=== PATIENT | female | born 1950 | race Caucasian/White ===

== ENCOUNTER → 2017-02-13 | Outpatient (CLI) | payer MEDICARE, MEDICAID ==
[~2017-02-13] MED LIST: ATOR1TAB18 PO; BUME1TAB PO; BUME1TAB26 PO; CALC0.5C6 PO; CALC500T35 PO; CARV6.252 PO; ESSE250T PO; FERR1TAB36 PO; FERR325T2 PO; FISH100020 PO; GLYB2.5T3 PO; GLYB5TAB3 PO; IPRAAER INH; ISOS20TA PO; ISOS30TA3 PO; LANTUS2P SQ; LEVO125T4 PO; LEVO88TA2 PO; LISI-519 PO; NOVOINJ3 SQ; OMEP20TA PO; POTA99TA4 PO; PRAS10TA PO; RANI150C PO; RANI1TAB5 PO; SPIR25TA PO; TUMS500C PO; VENTAER INH; VITA100018 PO
[2017-02-13 07:34] LABS: MEAN CELL VOLUME 90.1 FL (80.0-100.0); MEAN CORPUSCULAR HEMOGLOBIN 30.4 PG (27.0-34.0); MEAN CORPUSCULAR HGB CONC 33.7 % (32.0-36.0); PLATELET COUNT 142 TH/MM3 (150-450); RED BLOOD COUNT 4.33 MIL/MM3 (4.00-5.30); RED CELL DISTRIBUTION WIDTH 14.6 % (11.6-17.2); REVIEW FLAG FINAL; WHITE BLOOD COUNT 7.9 TH/MM3 (4.0-11.0)
[2017-02-13 07:55] LABS: BICARBONATE 27.3 MEQ/L (21.0-32.0); POTASSIUM 3.9 MEQ/L (3.5-5.1)
[2017-02-13 08:00] LABS: FREE T3 1.87 PG/ML (2.18-3.98); FREE T4 1.49 NG/DL (0.76-1.46)
[2017-02-13 15:53] LABS: HEMOGLOBIN A1a 1.1 %; HEMOGLOBIN A1b 1.4 %; HEMOGLOBIN Ao 71.2 %; HEMOGLOBIN F 2.2 %; HEMOGLOBIN LA1C 4.6 %; HEMOGLOBIN P3 6.3 %
== END ==
LOC: CLAB 07:05
PROVIDERS: ATTEND Internal Medicine Nephrology
DX: E03.9 Hypothyroidism, unspecified (principal); N18.3 Chronic kidney disease, stage 3 (moderate); E11.65 Type 2 diabetes mellitus with hyperglycemia; E11.22 Type 2 diabetes mellitus with diabetic chronic kidney disease; E83.51 Hypocalcemia
CPT/HCPCS: 36415; 80069; 83036; 84439; 84443; 84481; 85027

== ENCOUNTER 2017-05-10 14:08 | Inpatient (IN) | payer MEDICARE, MEDICAID ==
[~2017-05-10] VITALS: Ht 160 cm; Wt 65.0 kg
[~2017-05-10 14:08] MED LIST changes: -BUME1TAB PO; -CALC500T35 PO; -ESSE250T PO; -FERR325T2 PO; -FISH100020 PO; -GLYB5TAB3 PO; -IPRAAER INH; -ISOS30TA3 PO; -LANTUS2P SQ; -LEVO88TA2 PO; -NOVOINJ3 SQ; -POTA99TA4 PO; -RANI150C PO; -TUMS500C PO; -VITA100018 PO
[2017-05-10 14:10] VITALS: BP 153/67; PULSE 60; RESP 16; TEMP 98.4; O2SAT 98
[2017-05-10] MEDS ORDERED: SODIUM CHLOR 0.9% 1000 ML INJ 1,000 ML IV ONE (15:08)
[2017-05-10] MEDS ORDERED: ONDANSETRON HCL 4 MG/2 ML VIAL IVP ONE (15:15)
[2017-05-10] MEDS ORDERED: MECLIZINE HCL 25 MG TAB PO ONE (15:15)
[2017-05-10] MEDS ORDERED: SODIUM CHLORIDE 0.9% FLUSH 10 ML FLUSH IV FLUSH PRN ×2 (15:15→18:45)
--- NOTE | 2017-05-10 15:26 | PD ---
HPI Chief Complaint: Diabetic Time Seen by Provider: 15:08 Travel History International Travel<30 days: No Contact w/Intl Traveler<30days: No Traveled to known affect area: No History of Present Illness HPI This is a 67-year-old female with history of type 2 diabetes presents for evaluation of abdominal pain, headache, nausea and vomiting, vertigo. For the past 2 weeks she's been experiencing pain in the lower quadrants of her belly, left greater than right, which has been constant, aching sensation. She has also had an occipital headache as well as a vertigo sensation whenever she moves quickly or walks. In addition she has had nausea, proximal 2 episodes of emesis on a daily basis. She was seen by her primary care physician, Dr. Martinez , for evaluation of this 2 days ago. Symptoms have persisted which prompted evaluation here. She denies diarrhea, chest pain or shortness of breath, fevers or chills, flank pain, dysuria. Denies any recent dietary changes, recent medication changes. Her primary concern was the possibility of DKAshe looked up the symptoms on the Internet and she feels they are consistent. No history of DKA. Her blood sugar has been running between 150 and 160 at home. She has no other complaints. PFSH Past Medical History Hx Anticoagulant Therapy: Yes Arthritis: Yes Asthma: No Autoimmune Disease: No Blood Disorders: No Anxiety: No Depression: No Heart Rhythm Problems: Yes Cancer: No Cardiac Catheterization: Yes Cardiovascular Problems: Yes (afib, pacemaker) High Cholesterol: Yes Chemotherapy: No Chest Pain: Yes Congestive Heart Failure: Yes COPD: Yes Cerebrovascular Accident: No Coronary Artery Disease: Yes Diabetes: Yes Patient Takes Glucophage: No Diminished Hearing: Yes ([place]) Endocrine: Yes Gastrointestinal Disorders: Yes (GERD) GERD: Yes Genitourinary: No Hiatal Hernia: Yes Hypertension: Yes Immune Disorder: No Implanted Vascular Access Dvce: Yes (pacer/defib) Kidney Stones: Yes Musculoskeletal: Yes Neurologic: No Psychiatric: No Reproductive: No Respiratory: No Migraines: No Myocardial Infarction: Yes Radiation Therapy: No Renal Failure: No Seizures: No Sickle Cell Disease: No Sleep Apnea: No Thyroid Disease: Yes Ulcer: No Menopausal: Yes Tubal Ligation: Yes Past Surgical History Abdominal Surgery: No AICD: Yes (placed 06/06/15) Arteriovenous Shunt: No Cardiac Surgery: Yes Coronary Stent: Yes (04/2014) Ear Surgery: No Endocrine Surgery: No Eye Surgery: No Genitourinary Surgery: No Gynecologic Surgery: No Hysterectomy: No Insulin Pump: No Joint Replacement: No Oral Surgery: No Pacemaker: Yes (06/04/15 [facility] [id number]) Thoracic Surgery: No Other Surgery: Yes (thyroidectomy ) Social History Alcohol Use: No Tobacco Use: Yes Substance Use: No Allergies-Medications (Allergen,Severity, Reaction): Coded Allergies: Aspirin (Verified Allergy, Severe, EDEMA, NAUSEA, 11/07/16) Demerol (Verified Allergy, Severe, HEART STOPPED, 11/07/16) Levaquin (Verified Allergy, Severe, PAIN, 11/07/16) Neurontin (Verified Allergy, Severe, THROAT CLOSES, 11/07/16) Penicillin (Verified Allergy, Severe, Swelling, 11/07/16) Uncoded Allergies: PACEMAKER (Adverse Reaction, Severe, NON CONDITIONAL PACEMAKER, 11/08/16) NON BIOTRONIK/MEDTRONIC VSV 11/08/16 Reported Meds & Prescriptions Reported Meds & Active Scripts Active Reported Potassium 99 Mg Tablet 99 Mg PO DAILY Vitamin D3 (Cholecalciferol) 1,000 Unit Tab 1,000 Units PO DAILY Fish Oil 1000 mg ([place]-3 Fatty Acids) 1 Cap Cap 1,000 Mg PO TID Magnesium 250 Mg Tab 500 Mg PO DAILY Tums (Calcium Carbonate (Antacid)) 500 Mg Chew 500 Mg PO PRN Calcium (Oyster Shell) 500 Mg Tab 500 Mg PO DAILY Combivent Respimat Inh (Ipratropium-Albuterol Inh) 20-100 [place]/Act Aero 1 Puff INH 1-2 TIMES DAILY Lantus Inj (Insulin Glargine) 1,000 Unit/10 Ml Vial 10 Units SQ HS Novolog Flexpen Inj (Insulin Aspart) 300 Unit/3 Ml Pen 3 Units SQ TIDAC Ferrous Sulfate DR (Ferrous Sulfate) 325 Mg Tabdr 325 Mg PO DAILY Levothyroxine (Levothyroxine Sodium) 88 Mcg Tab 88 Mcg PO DAILY Isosorbide Mononitrate ER (Isosorbide Mononitrate) 30 Mg Dina 30 Mg PO DAILY Ranitidine (Ranitidine HCl) 150 Mg Cap 150 Mg PO BID Glyburide 5 Mg Tab 5 Mg PO BID Take with meals at the same time each day Bumetanide 1 Mg Tab 1 Mg PO BID Omeprazole 20 Mg Tab 20 Mg PO HS Lisinopril 5 Mg Tab 5 Mg PO DAILY Effient (Prasugrel) 10 Mg Tab 10 Mg PO DAILY Carvedilol 6.25 Mg Tab 6.25 Mg PO BID Calcitriol 0.5 Mcg Cap 0.5 Mcg PO DAILY Atorvastatin (Atorvastatin Calcium) 80 Mg Tab 80 Mg PO HS Ventolin Hfa 18 GM Inh (Albuterol Sulfate) 90 Mcg/Act Aer 2 Puff INH TID PRN Review of Systems Except as stated in HPI: all other systems reviewed are Neg Physical Exam Narrative GENERAL: This is a well-developed well-nourished female who is in no acute distress SKIN: Warm and dry. HEAD: Atraumatic. Normocephalic. EYES: Pupils equal and round reactive to light extraocular muscles are intact no nystagmus. No scleral icterus. No injection or drainage. ENT: No nasal bleeding or discharge. Mucous membranes pink and moist. NECK: Trachea midline. No JVD. CARDIOVASCULAR: Regular rate and rhythm. No murmur appreciated. RESPIRATORY: No accessory muscle use. Clear to auscultation. Breath sounds equal bilaterally. GASTROINTESTINAL: Abdomen soft, mild left lower quadrant tenderness without guarding. No CVA tenderness. MUSCULOSKELETAL: No obvious deformities. No edema. NEUROLOGICAL: Awake and alert. No obvious cranial nerve deficits. Motor grossly within normal limits. Normal speech. PSYCHIATRIC: Appropriate mood and affect; insight and judgment normal. Data Data Last Documented VS Vital Signs Date Time Temp Pulse Resp B/P Pulse Ox O2 Delivery O2 Flow Rate FiO2 05/10/17 16:23 78 20 156/77 05/10/17 16:00 97 05/10/17 14:10 98.4 Room Air Orders Complete Blood Count With Diff (05/10/17 15:08) Comprehensive Metabolic Panel (05/10/17 15:08) Lipase (05/10/17 15:08) Urinalysis - C+S If Indicated (05/10/17 15:08) Iv Access Insert/Monitor (05/10/17 15:08) Ecg Monitoring (05/10/17 15:08) Oximetry (05/10/17 15:08) Ondansetron Inj (Zofran Inj) (05/10/17 15:15) Sodium Chloride 0.9% Flush (Ns Flush) (05/10/17 15:15) Electrocardiogram (05/10/17 15:08) Magnesium (Mg) (05/10/17 15:08) Ckmb (Isoenzyme) Profile (05/10/17 15:08) Troponin I (05/10/17 15:08) Act Partial Throm Time (Ptt) (05/10/17 15:08) Prothrombin Time / Inr (Pt) (05/10/17 15:08) Ct Brain W/O Iv Contrast(Rout) (05/10/17 15:08) Meclizine (Antivert) (05/10/17 15:15) Sodium Chlor 0.9% 1000 Ml Inj (Ns 1000 M (05/10/17 15:08) Beta Hydroxybutyrate (Acetone) (05/10/17 15:20) Sodium Chlor 0.9% 1000 Ml Inj (Ns 1000 M (05/10/17 16:26) Ct Abd/Pel W/O Iv Contrast (05/10/17 15:08) Admit Order (Ed Use Only) (05/10/17 17:49) Labs Laboratory Tests Test 05/10/17 15:20 White Blood Count 10.7 TH/MM3 Red Blood Count 4.04 MIL/MM3 Hemoglobin 12.3 GM/DL Hematocrit 35.5 % Mean Corpuscular Volume 88.0 FL Mean Corpuscular Hemoglobin 30.5 PG Mean Corpuscular Hemoglobin 34.6 % Concent Red Cell Distribution Width 13.5 % Platelet Count 192 TH/MM3 Mean Platelet Volume 10.9 FL Neutrophils (%) (Auto) 66.9 % Lymphocytes (%) (Auto) 22.1 % Monocytes (%) (Auto) 9.2 % Eosinophils (%) (Auto) 1.4 % Basophils (%) (Auto) 0.4 % Neutrophils # (Auto) 7.2 TH/MM3 Lymphocytes # (Auto) 2.4 TH/MM3 Monocytes # (Auto) 1.0 TH/MM3 Eosinophils # (Auto) 0.1 TH/MM3 Basophils # (Auto) 0.0 TH/MM3 CBC Comment DIFF FINAL Differential Comment Prothrombin Time 10.0 SEC Prothromb Time International 0.9 RATIO Ratio Activated Partial 30.6 SEC Thromboplast Time Sodium Level 141 MEQ/L Potassium Level 3.8 MEQ/L Chloride Level 101 MEQ/L Carbon Dioxide Level 33.9 MEQ/L Anion Gap 6 MEQ/L Blood Urea Nitrogen 31 MG/DL Creatinine 2.66 MG/DL Estimat Glomerular Filtration 18 ML/MIN Rate Random Glucose 97 MG/DL Calcium Level 13.6 MG/DL Protein Corrected Calcium 13.2 MG/DL Magnesium Level 1.3 MG/DL Total Bilirubin 0.4 MG/DL Aspartate Amino Transf 17 U/L (AST/SGOT) Alanine Aminotransferase 22 U/L (ALT/SGPT) Alkaline Phosphatase 91 U/L Total Creatine Kinase 77 U/L Troponin I LESS THAN 0.02 NG/ML Total Protein 7.7 GM/DL Albumin 3.5 GM/DL Lipase 146 U/L B-Hydroxybutyrate 0.08 MMOL/L MDM Medical Decision Making Medical Screen Exam Complete: Yes Emergency Medical Condition: Yes Medical Record Reviewed: Yes Differential Diagnosis Intracranial hemorrhage, diverticulitis, appendicitis, UTI, electrolyte disturbance, benign positional vertigo, intracranial mass Narrative Course 67-year-old female with 2 weeks of abdominal pain, headache, vertigo sensation, nausea and vomiting. On examination she has mild left lower quadrant tenderness to palpation. Examination is otherwise unremarkable, no neurologic deficits. Plan is for basic lab work, CT of the abdomen and pelvis, CT of the brain, 12-lead EKG, ECG monitoring. She was given IV fluids, oral meclizine, IV Zofran. She will be monitored closely. The patient's lab work is been reviewed and she has an acute kidney injury, with hypercalcemia. She has a history of thyroidectomy/parathyroidectomy with resultant issues with hypocalcemia. She takes calcium supplements on a regular basis, did not take one today, denies any recent change in this arena. The patient will be given 2 L of IV fluids and she will be admitted for further management of her symptomatic hypercalcemia, acute kidney injury. Discussed with Dr. Traylor who is agreeable with admission. Procedures EKG Prior to Arrival: Yes Diagnosis Primary Impression: Hypercalcemia Additional Impression: Acute kidney injury Admitting Information Admitting Physician Requests: Admit Delbert Doshi May 10, 2017 15:26
[2017-05-10 16:00] VITALS: O2SAT 97
[2017-05-10 16:07] LABS: APTT (PATIENT) 30.6 SEC (24.3-30.1); INTERNATIONAL NORMALIZED RATIO 0.9 RATIO
[2017-05-10 16:08] LABS: AUTOMATED NEUTROPHIL # 7.2 TH/MM3 (1.8-7.7); BASOPHIL % 0.4 % (0.0-2.0); EOSINOPHIL # 0.1 TH/MM3 (0-0.4); EOSINOPHIL % 1.4 % (0.0-4.0); HEMATOCRIT 35.5 % (35.0-46.0); HEMO FLAGS DIFF FINAL; LYMPH % 22.1 % (9.0-44.0); LYMPHOCYTE # 2.4 TH/MM3 (1.0-4.8); MEAN CORPUSCULAR HEMOGLOBIN 30.5 PG (27.0-34.0); MEAN CORPUSCULAR HGB CONC 34.6 % (32.0-36.0); MONO % 9.2 % (0.0-8.0); NEUT % 66.9 % (16.0-70.0); PLATELET COUNT 192 TH/MM3 (150-450); RED BLOOD COUNT 4.04 MIL/MM3 (4.00-5.30); RED CELL DISTRIBUTION WIDTH 13.5 % (11.6-17.2); WHITE BLOOD COUNT 10.7 TH/MM3 (4.0-11.0)
[2017-05-10] MEDS ORDERED: IPRAAER INH (16:10)
[2017-05-10] MEDS ORDERED: NOVOINJ3 SQ (16:10)
[2017-05-10] MEDS ORDERED: GLYB5TAB3 PO (16:10)
[2017-05-10] MEDS ORDERED: ISOS30TA3 PO (16:10)
[2017-05-10] MEDS ORDERED: RANI150C PO (16:10)
[2017-05-10] MEDS ORDERED: ESSE250T PO (16:10)
[2017-05-10] MEDS ORDERED: BUME1TAB PO (16:10)
[2017-05-10] MEDS ORDERED: FERR325T2 PO (16:10)
[2017-05-10] MEDS ORDERED: VITA100018 PO (16:10)
[2017-05-10] MEDS ORDERED: FISH100020 PO (16:10)
[2017-05-10] MEDS ORDERED: LEVO88TA2 PO (16:10)
[2017-05-10] MEDS ORDERED: TUMS500C PO (16:10)
[2017-05-10] MEDS ORDERED: LANTUS2P SQ (16:10)
[2017-05-10] MEDS ORDERED: CALC500T35 PO (16:10)
[2017-05-10] MEDS ORDERED: POTA99TA4 PO (16:10)
[2017-05-10 16:19] LABS: ALKALINE PHOSPHATASE 91 U/L (45-117); ALT (GPT) 22 U/L (10-53); ANION GAP 6 MEQ/L (5-15); AST (GOT) 17 U/L (15-37); BETA-HYDROXYBUTYRATE 0.08 MMOL/L (0.00-0.39); BICARBONATE 33.9 MEQ/L (21.0-32.0); BLOOD UREA NITROGEN 31 MG/DL (7-18); CHLORIDE 101 MEQ/L (98-107); GLOMERULAR FILTRATION RATE 18 ML/MIN (>89); MAGNESIUM 1.3 MG/DL (1.5-2.5); POTASSIUM 3.8 MEQ/L (3.5-5.1); SODIUM (NA) 141 MEQ/L (136-145); TOTAL BILIRUBIN ADULT 0.4 MG/DL (0.2-1.0)
[2017-05-10 16:21] LABS: CREATINE KINASE 77 U/L (26-192)
[2017-05-10 16:23] VITALS: BP 156/77; PULSE 78; RESP 20
[2017-05-10 16:25] LABS: CALCIUM-PROTEIN CORRECTED 13.2 MG/DL (8.5-10.1)
[2017-05-10] MEDS ORDERED: SODIUM CHLOR 0.9% 1000 ML INJ 1,000 ML IV SCH (16:26)
--- NOTE | 2017-05-10 17:17 | RADRPT ---
EXAM DATE/TIME: 05/10/2017 16:58 [facility] COMPARISON: CT BRAIN W/O CONTRAST, November 07, 2016, 12:27. INDICATIONS : Headaches . RADIATION DOSE: 56.35 CTDIvol (mGy) MEDICAL HISTORY : Diabetes mellitus type 2. Chronic obstructive pulmonary disease. SURGICAL HISTORY : Thyroidectomy. Tubal ligation.Carotid stent. ENCOUNTER: Initial ACUITY: 3 weeks PAIN SCALE: 5/10 LOCATION: cranial TECHNIQUE: Multiple contiguous axial images were obtained of the head. Using automated exposure control and adj ustment of the mA and/or kV according to patient size, radiation dose was kept as low as reasonably a chievable to obtain optimal diagnostic quality images. DICOM format image data is available electro nically for review and comparison. FINDINGS: There is patchy minimal diminished attenuation in periventricular white matter which appears unchange d and benign. No evidence of intracranial mass or hemorrhage. There is nothing to suggest acute infar ction. Extracranial structures are benign and intact. CONCLUSION: Stable brain appearance. No acute intracranial findings.. Matt Davila MD on May 10, 2017 at 17:13 Board Certified Radiologist. This report was verified electronically.
--- NOTE | 2017-05-10 17:34 | RADRPT ---
EXAM DATE/TIME: 05/10/2017 17:00 [facility] COMPARISON: No previous studies available for comparison. INDICATIONS : Abdomin pain , nausea . ORAL CONTRAST: No oral contrast ingested. RADIATION DOSE: 9.96 CTDIvol (mGy) MEDICAL HISTORY : Gastroesophageal reflux disease. Diabetes mellitus type 2. Hypertension. SURGICAL HISTORY : Carotid stent. Thyroidectomy. ENCOUNTER: Initial ACUITY: 3 days PAIN SCALE: 5/10 LOCATION: upper quadrant TECHNIQUE: Volumetric scanning of the abdomen and pelvis was performed. Using automated exposure control and ad justment of the mA and/or kV according to patient size, radiation dose was kept as low as reasonably achievable to obtain optimal diagnostic quality images. DICOM format image data is available electro nically for review and comparison. FINDINGS: LOWER LUNGS: The visualized lower lungs are clear. LIVER: Homogeneous density without lesion. There is no dilation of the biliary tree. No calcified gallston es. SPLEEN: Normal size without lesion. PANCREAS: Within normal limits. KIDNEYS: Normal in size and shape. There is no mass, stone, or hydronephrosis. ADRENAL GLANDS: Within normal limits. VASCULAR: Calcific vascular disease is identified in the common aorta, mesenteric vessels and renal arteries. BOWEL/MESENTERY: A rounded structure measuring 4 cm is identified along the inner margin of the duodenal C-loop which has the appearance of a debris filled diverticulum. The intestinal tract is otherwise unremarkable. T here is no evidence of pathologic distention, inflammatory changes, free air or abnormal fluid collec tions. Moderate-sized hiatal hernia is noted. ABDOMINAL WALL: Within normal limits. RETROPERITONEUM: There is no lymphadenopathy. BLADDER: No wall thickening or mass. REPRODUCTIVE: Within normal limits. INGUINAL: There is no lymphadenopathy or hernia. MUSCULOSKELETAL: Within normal limits for patient age. CONCLUSION: Duodenal diverticulum containing food debris and air No evidence of ileus, inflammatory bowel disease or free air. Moderate-sized hiatal hernia. Otherwise unremarkable exam. Hernan Encarnacion MD on May 10, 2017 at 17:26 Board Certified Radiologist. This report was verified electronically.
[2017-05-10] MEDS ORDERED: ACETAMINOPHEN 325 MG TAB PO PRN (18:45)
[2017-05-10] MEDS ORDERED: ONDANSETRON HCL 4 MG/2 ML VIAL IVP PRN (18:45)
[2017-05-10] MEDS ORDERED: NALOXONE HCL 0.4 MG/ML AMP IV PRN (18:45)
[2017-05-10 19:25] LABS: BACTERIA, URINE RARE /hpf; BLOOD, URINE NEG (NEG); COMMENT (UR) CULTURE INDICATED; CULTURE IF INDICATED CULTURE INDICATED; GLUCOSE,URINE NEG (NEG); KETONE, URINE NEG (NEG); NITRITE,URINE NEG (NEG); SQUAMOUS EPITHELIAL CELL URINE 1 /hpf (0-5); URINE COLOR LIGHT-YELLOW (YELLW/STRAW)
--- NOTE | 2017-05-10 19:53 | HHI.HP ---
[facility] Primary Care Physician Hiro Martinez, Admission Diagnosis hypercalcemia, acute renal insufficiency Diagnoses: Chief Complaint: Dizziness, polyuria, I feel like I may be in DKA. Travel History International Travel<30 Days: No Contact w/Intl Traveler <30 Da: No Traveled to Known Affected Are: No History of Present Illness 67-year-old pleasant female with a history of CAD, GERD, hypothyroidism, chronic atrial fibrillation status post pacemaker/AICD presents emergency room due to worsening symptoms of dizziness, polyuria, worsening nonspecific lower abdominal discomfort and pain for the past 4 weeks. Due to the symptoms worsening, patient was worried that she was in DKA and therefore came to emergency room today for further evaluation of her symptoms. She denies symptoms of dysuria, nor any hematuria. She describes the lower abdominal pain as a dull aching pain with a bandlike radiation towards her back. She denies any section symptoms of constipation or any diarrhea. She has not had any bloody stools or black tarry stools. She states that she is taking calcium supplements for her primary care physician her mouthpiece maker Dr. Salgado's cough. She is taking 1 calcium 500 mg tablets a day along with 3-4 tablets of Tylenol was on daily basis. She is also taking vitamin D supplements along with calcitriol. She is also compliant with her left proximal for her thyroid supplement. She reports having started insulin a few months back and is on a NovoLog 3 units prior to meals along with starting Lantus 10 units at night. She also describes associated symptoms or nausea along with dizziness with her symptoms. Review of Systems Constitutional: COMPLAINS OF: Fatigue, Dizziness, DENIES: Fever, Chills, Change in appetite Endocrine: DENIES: Heat/cold intolerance Eyes: DENIES: Blurred vision, Eye pain, Vision loss Ears, nose, mouth, throat: DENIES: Hearing loss, Nasal discharge, Throat pain, Ear Pain, Sinus Pain Respiratory: DENIES: Cough, Sputum production, Shortness of breath Cardiovascular: DENIES: Chest pain, Palpitations, Dyspnea on Exertion, Lower Extremity Edema, Orthopnea Gastrointestinal: COMPLAINS OF: Abdominal pain, Nausea, DENIES: Black stools, Bloody stools, Constipation, Diarrhea, Vomiting, Anorexia Genitourinary: COMPLAINS OF: Urinary frequency, DENIES: Abnormal vaginal bleeding, Hematuria, Dysuria Musculoskeletal: DENIES: Joint pain, Muscle aches, Stiffness Integumentary: DENIES: Rash Hematologic/lymphatic: DENIES: Bruising, Lymphadenopathy Immunologic/allergic: DENIES: Eczema Neurologic: DENIES: Headache, Localized weakness, Paresthesias Psychiatric: DENIES: Anxiety, Depression, Suicidal Ideation Past Family Social History Past Medical History Chronic atrial fibrillation status post pacemaker, AICD CAD GERD hypothyroidism Hyperlipidemia Past Surgical History Thyroidectomy Pacemaker/AICD Left carotid enterectomy Reported Medications Potassium 99 Mg Tablet 99 Mg PO DAILY Vitamin D3 (Cholecalciferol) 1,000 Unit Tab 1,000 Units PO DAILY Fish Oil 1000 mg ([place]-3 Fatty Acids) 1 Cap Cap 1,000 Mg PO TID Magnesium 250 Mg Tab 500 Mg PO DAILY Tums (Calcium Carbonate (Antacid)) 500 Mg Chew 500 Mg PO PRN Calcium (Oyster Shell) 500 Mg Tab 500 Mg PO DAILY Combivent Respimat Inh (Ipratropium-Albuterol Inh) 20-100 Fci/Act Aero 1 Puff INH 1-2 TIMES DAILY Lantus Inj (Insulin Glargine) 1,000 Unit/10 Ml Vial 10 Units SQ HS Novolog Flexpen Inj (Insulin Aspart) 300 Unit/3 Ml Pen 3 Units SQ TIDAC Ferrous Sulfate DR (Ferrous Sulfate) 325 Mg Tabdr 325 Mg PO DAILY Levothyroxine (Levothyroxine Sodium) 88 Mcg Tab 88 Mcg PO DAILY Isosorbide Mononitrate ER (Isosorbide Mononitrate) 30 Mg Dina 30 Mg PO DAILY Ranitidine (Ranitidine HCl) 150 Mg Cap 150 Mg PO BID Glyburide 5 Mg Tab 5 Mg PO BID Take with meals at the same time each day Bumetanide 1 Mg Tab 1 Mg PO BID Omeprazole 20 Mg Tab 20 Mg PO HS Lisinopril 5 Mg Tab 5 Mg PO DAILY Effient (Prasugrel) 10 Mg Tab 10 Mg PO DAILY Carvedilol 6.25 Mg Tab 6.25 Mg PO BID Calcitriol 0.5 Mcg Cap 0.5 Mcg PO DAILY Atorvastatin (Atorvastatin Calcium) 80 Mg Tab 80 Mg PO HS Ventolin Hfa 18 GM Inh (Albuterol Sulfate) 90 Mcg/Act Aer 2 Puff INH TID PRN Allergies: Coded Allergies: Aspirin (Verified Allergy, Severe, EDEMA, NAUSEA, 11/07/16) Demerol (Verified Allergy, Severe, HEART STOPPED, 11/07/16) Levaquin (Verified Allergy, Severe, PAIN, 11/07/16) Neurontin (Verified Allergy, Severe, THROAT CLOSES, 11/07/16) Penicillin (Verified Allergy, Severe, Swelling, 11/07/16) Uncoded Allergies: PACEMAKER (Adverse Reaction, Severe, NON CONDITIONAL PACEMAKER, 11/08/16) NON BIOTRONIK/MEDTRONIC VSV 11/08/16 Family History No significant family history Social History Does not drink alcohol, has cut down smoking. Only smokes about 1-2 cigarettes daily. Physical Exam Vital Signs Vital Signs Date Time Temp Pulse Resp B/P Pulse Ox O2 Delivery O2 Flow Rate FiO2 05/10/17 16:23 78 20 156/77 05/10/17 16:00 97 05/10/17 14:10 98.4 60 16 153/67 98 Room Air Physical Exam GENERAL: This is a well-nourished, well-developed patient, in no apparent distress. SKIN: No rashes, ecchymoses or lesions. Cool and dry. HEAD: Atraumatic. Normocephalic. No temporal or scalp tenderness. EYES: Pupils equal round and reactive. Extraocular motions intact. No scleral icterus. No injection or drainage. ENT: Nose without bleeding, purulent drainage or septal hematoma. Throat without erythema, tonsillar hypertrophy or exudate. Uvula midline. Airway patent. NECK: Trachea midline. No JVD or lymphadenopathy. Supple, nontender, no meningeal signs. CARDIOVASCULAR: Irregular rhythm regular rate RESPIRATORY: Clear to auscultation. Breath sounds equal bilaterally. No wheezes , rales, or rhonchi. GASTROINTESTINAL: Abdomen soft, non-tender, nondistended. No hepato-splenomegaly , or palpable masses. No guarding. Normoactive bowel sounds MUSCULOSKELETAL: Extremities without clubbing, cyanosis, or edema. No joint tenderness, effusion, or edema noted. No calf tenderness. Negative Homans sign bilaterally. NEUROLOGICAL: Awake and alert. Cranial nerves II through XII intact. Motor and sensory grossly within normal limits. Five out of 5 muscle strength in all muscle groups. Normal speech. Laboratory Laboratory Tests Test 05/10/17 05/10/17 15:20 18:35 White Blood Count 10.7 Red Blood Count 4.04 Hemoglobin 12.3 Hematocrit 35.5 Mean Corpuscular Volume 88.0 Mean Corpuscular Hemoglobin 30.5 Mean Corpuscular Hemoglobin 34.6 Concent Red Cell Distribution Width 13.5 Platelet Count 192 Mean Platelet Volume 10.9 Neutrophils (%) (Auto) 66.9 Lymphocytes (%) (Auto) 22.1 Monocytes (%) (Auto) 9.2 Eosinophils (%) (Auto) 1.4 Basophils (%) (Auto) 0.4 Neutrophils # (Auto) 7.2 Lymphocytes # (Auto) 2.4 Monocytes # (Auto) 1.0 Eosinophils # (Auto) 0.1 Basophils # (Auto) 0.0 CBC Comment DIFF FINAL Differential Comment Prothrombin Time 10.0 Prothromb Time International 0.9 Ratio Activated Partial 30.6 Thromboplast Time Sodium Level 141 Potassium Level 3.8 Chloride Level 101 Carbon Dioxide Level 33.9 Anion Gap 6 Blood Urea Nitrogen 31 Creatinine 2.66 Estimat Glomerular Filtration 18 Rate Random Glucose 97 Calcium Level 13.6 Protein Corrected Calcium 13.2 Magnesium Level 1.3 Total Bilirubin 0.4 Aspartate Amino Transf 17 (AST/SGOT) Alanine Aminotransferase 22 (ALT/SGPT) Alkaline Phosphatase 91 Total Creatine Kinase 77 Troponin I LESS THAN 0.02 Total Protein 7.7 Albumin 3.5 Lipase 146 B-Hydroxybutyrate 0.08 Urine Color LIGHT-YELLOW Urine Turbidity HAZY Urine pH 7.0 Urine Specific [place] 1.007 Urine Protein NEG Urine Glucose (UA) NEG Urine Ketones NEG Urine Occult Blood NEG Urine Nitrite NEG Urine Bilirubin NEG Urine Urobilinogen LESS THAN 2.0 Urine Leukocyte Esterase LARGE Urine RBC 1 Urine WBC 31 Urine Squamous Epithelial 1 Cells Urine Amorphous Sediment RARE Urine Bacteria RARE Microscopic Urinalysis Comment CULTURE INDICATED Date/Time Procedure Status Source Growth 05/10/17 18:35 Urine Culture Received Urine Random Urine Pending Result Diagram: 05/10/17 1520 05/10/17 1520 Imaging Last Impressions Head CT 05/10/17 1508 Signed Impressions: Service Date/Time: , May 10, 2017 16:58 - CONCLUSION: Stable brain appearance. No acute intracranial findings.. 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 Moderate-sized hiatal hernia. Otherwise unremarkable exam. Hernan Encarnacion MD Assessment and Plan Problem List: (1) Hypercalcemia ICD Code: E83.52 Status: Acute (2) Acute kidney injury ICD Code: N17.9 Status: Acute (3) Hypomagnesemia ICD Code: E83.42 Status: Acute Assessment and Plan 1. Hypercalcemiaadmit for further workup and evaluation, start IV fluid hydration and consult her mouthpiece maker Dr. Carey. Due to her acute kidney injury superimposed on chronic kidney disease stage III will hold off on diuretic for now until repeat calcium on the morning. Will stop all calcium supplements per will check a PTH, TSH 2. Acute renal failure superimposed on chronic kidney disease stage IIIIV fluid hydration. Hold diuretics overnight hold SHONA inhibitor lisinopril. Consult her mouthpiece maker Dr. Carey 3. Diabetes mellitus type 2, insulin-dependenthold glyburide for now, resume Lantus and hold preprandial insulin until oral intake is assessed due to patient 's complaints of nausea. Accu-Cheks with SSI to monitor glycemic levels 4. History hyperlipidemiacontinue with statin. 5. History hypertension- hold lisinopril due to acute kidney injury and monitor antihypertensives. 6. Hypothyroidismlevothyroxine 7. Hypomagnesemiasupplement 8. History of chronic atrial fibrillationstatus post pacemaker rate controlled on Coreg. 9. DVT prophylaxisheparin. Physician Certification 2 Midnight Certification Type: Admission for Inpatient Services Order for Inpatient Services The services are ordered in accordance with Medicare regulations or non- Medicare payer requirements, as applicable. In the case of services not specified as inpatient-only, they are appropriately provided as inpatient services in accordance with the 2-midnight benchmark. Estimated LOS (days): 3 days is the estimated time the patient will need to remain in the hospital, assuming treatment plan goals are met and no additional complications. Post-Hospital Plan: Home Elina Traylor MD May 10, 2017 19:53
--- NOTE | 2017-05-10 19:59 | EKG ---
Date Performed: 05/10/2017 Time Performed: 15:24:16 PTAGE: 67 years EKG: ELECTRONIC ATRIAL PACEMAKER ELECTRONIC VENTRICULAR PACEMAKER ABNORMAL RHYTHM ECG NO SIGNIFI CANT CHANGE FROM PRIOR ELECTROCARDIOGRAM. PREVIOUS TRACING : 11/07/2016 13.27 DOCTOR: Christoph Austin Interpretating Date/Time 05/10/2017 19:58:19
[2017-05-10] MEDS ORDERED: ALBUTEROL SULFATE 90 MCG/ACT HFA 8 GM INHALER INH PRN (20:00)
[2017-05-10] MEDS ORDERED: MAGNESIUM SULFATE 1 GM PREMIX 100 ML IV ONE (20:00)
[2017-05-10] MEDS ORDERED: GLUCAGON 1 MG/ML VIAL OTHER PRN (20:15)
[2017-05-10] MEDS ORDERED: DEXTROSE 50% IN WATER 50 ML VIAL(D50) IV PRN (20:15)
[2017-05-10 20:35] VITALS: BP 163/67; PULSE 71; RESP 18; TEMP 96.2; O2SAT 99
[2017-05-10] MEDS: CARVEDILOL 6.25 MG TAB PO SCH (20:42)
[2017-05-10] MEDS: SODIUM CHLOR 0.9% 1000 ML INJ 1,000 ML IV SCH (20:42)
[2017-05-10] MEDS: ATORVASTATIN 80 MG TAB PO SCH (20:42)
[2017-05-10] MEDS: MAGNESIUM OXIDE 400 MG TAB PO SCH (20:42)
[2017-05-10] MEDS: PANTOPRAZOLE SOD 20 MG DELAYED RELEASE TAB PO SCH (20:42)
[2017-05-10] MEDS: HEPARIN SODIUM - SQ 10,000 UNITS/ML VIAL SQ SCH (20:42)
[2017-05-10] MEDS: INSULIN ASPART SUPPLEMENTAL SCALE SQ SCH (20:43)
[2017-05-10] MEDS: INSULIN DETEMIR 100 UNITS/ML VIAL SQ SCH (20:45)
[2017-05-10] MEDS: SODIUM CHLORIDE 0.9% FLUSH 10 ML FLUSH IV FLUSH SCH (20:52)
[2017-05-10 23:37] VITALS: BP 108/45; PULSE 60; RESP 16; TEMP 97.6; O2SAT 96
[2017-05-11 03:57] VITALS: BP 108/48; PULSE 60; RESP 18; TEMP 97.9; O2SAT 95
[2017-05-11] MEDS: SODIUM CHLOR 0.9% 1000 ML INJ 1,000 ML IV SCH ×2 (04:31→14:31)
[2017-05-11] MEDS: LEVOTHYROXINE SODIUM 88 MCG TAB PO SCH (06:20)
[2017-05-11] MEDS: INSULIN ASPART SUPPLEMENTAL SCALE SQ SCH ×4 (07:00→21:33)
[2017-05-11 08:25] VITALS: BP 150/71; PULSE 61; RESP 20; TEMP 96.3; O2SAT 96
[2017-05-11] MEDS: HEPARIN SODIUM - SQ 10,000 UNITS/ML VIAL SQ SCH ×2 (08:34→21:29)
[2017-05-11] MEDS: SODIUM CHLORIDE 0.9% FLUSH 10 ML FLUSH IV FLUSH SCH ×2 (08:38→21:00)
[2017-05-11] MEDS: MAGNESIUM OXIDE 400 MG TAB PO SCH ×2 (08:38→21:30)
[2017-05-11] MEDS: FERROUS SULFATE 325 MG (65 MG ELEMENTAL IRON) TAB PO SCH (08:38)
[2017-05-11] MEDS: PRASUGREL 10 MG TAB PO SCH (08:38)
[2017-05-11] MEDS: CARVEDILOL 6.25 MG TAB PO SCH ×2 (08:38→21:29)
[2017-05-11] MEDS: ISOSORBIDE MONONITRATE 30 MG TAB PO SCH (08:38)
--- NOTE | 2017-05-11 09:41 | HHI.PR ---
Subjective Remarks Follow-up dizziness and abdominal pain. Patient states she gets dizzy when she is ambulating. Still having intermittent lower quadrant abdominal pain. She also has epigastric discomfort and bloating right after eating. Was having nausea and vomiting twice a part to admission. Discussed with RN Objective Vitals Vital Signs Date Time Temp Pulse Resp B/P Pulse Ox O2 Delivery O2 Flow Rate FiO2 05/11/17 08:25 96.3 61 20 150/71 96 05/11/17 03:57 97.9 60 18 108/48 95 05/10/17 23:37 97.6 60 16 108/45 96 05/10/17 20:35 96.2 71 18 163/67 99 05/10/17 16:23 78 20 156/77 05/10/17 16:00 97 05/10/17 14:10 98.4 60 16 153/67 98 Room Air I/O 05/10/17 05/10/17 05/10/17 05/11/17 05/11/17 05/11/17 07:00 15:00 23:00 07:00 15:00 23:00 Intake Total 926 ml Balance 926 ml Intake IV Total 926 ml Result Diagram: 05/10/17 1520 05/10/17 1520 Imaging Last Impressions Head CT 05/10/17 1508 Signed Impressions: Service Date/Time: April 16:58 - CONCLUSION: Stable brain appearance. No acute intracranial findings.. 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 Moderate-sized hiatal hernia. Otherwise unremarkable exam. Hernan Encarnacion MD Objective Remarks GENERAL: This is a well-nourished, well-developed patient, in no apparent distress. SKIN: No rashes, ecchymoses or lesions. Cool and dry. HEAD: Atraumatic. Normocephalic. No temporal or scalp tenderness. EYES: Pupils equal round and reactive. Extraocular motions intact. No scleral icterus. No injection or drainage. ENT: Nose without bleeding, purulent drainage or septal hematoma. Throat without erythema, tonsillar hypertrophy or exudate. Uvula midline. Airway patent. Dry oral mucosa NECK: Trachea midline. No JVD or lymphadenopathy. Supple, nontender, no meningeal signs. CARDIOVASCULAR: Irregular rhythm regular rate RESPIRATORY: Clear to auscultation. Breath sounds equal bilaterally. No wheezes , rales, or rhonchi. GASTROINTESTINAL: Abdomen soft, non-tender, nondistended. No guarding. Normoactive bowel sounds MUSCULOSKELETAL: Extremities without clubbing, cyanosis, or edema. No joint tenderness, effusion, or edema noted. No calf tenderness. Negative Homans sign bilaterally. NEUROLOGICAL: Awake and alert. Cranial nerves II through XII intact. Motor and sensory grossly within normal limits. Five out of 5 muscle strength in all muscle groups. Normal speech. Procedures none A/P Problem List: (1) Hypercalcemia ICD Code: E83.52 Status: Acute (2) Acute kidney injury ICD Code: N17.9 Status: Acute (3) Hypomagnesemia ICD Code: E83.42 Status: Acute Assessment and Plan 1. Hypercalcemiaimproving continue IV fluid hydration. Repeat calcium in the mornin 2. Acute on chronic kidney disease stage IIIslowly improving continue IV fluid hydration. Avoid nephrotoxins. Hold diuretics and SHONA inhibitor lisinopril. Consult her physician office assistant Dr. Carey. Patient has vitamin D deficiency we'll start vitamin D3 600 units daily. 3. Diabetes mellitus type 2, insulin-dependenthold glyburide for now, resume Lantus and hold preprandial insulin until oral intake is assessed due to patient 's complaints of nausea. Accu-Cheks with SSI to monitor glycemic levels 4. Hyperlipidemiacontinue with statin. 5. Hypertension- hold lisinopril due to acute kidney injury and monitor antihypertensives. Stable 6. Hypothyroidismlevothyroxine 7. Hypomagnesemiasupplement 8. History of chronic atrial fibrillationstatus post pacemaker rate controlled on Coreg. 9. Abnormal urinalysis. She complains of lower abdominal discomfort. Start empiric aztreonam. Allergic to Levaquin and penicillin. Follow-up urine culture 10. Epigastric pain and bloating. Lipase within normal limits. Continue PPI. Has duodenal diverticulum on CT. Outpatient follow-up with GI DVT prophylaxisheparin. Discharge Planning Not ready for discharge Mark Christian MD May 11, 2017 09:41
[2017-05-11] MEDS ORDERED: PNEUMOCOCCAL POLYVALENT INJ 25 MCG/0.5 ML SYR IM ONE (10:00)
[2017-05-11 10:10] LABS: MAGNESIUM 1.6 MG/DL (1.5-2.5); POTASSIUM 3.9 MEQ/L (3.5-5.1)
[2017-05-11 12:39] VITALS: BP 113/56; PULSE 59; RESP 20; TEMP 98.1; O2SAT 96
[2017-05-11 16:05] VITALS: BP_SYST 134; BP_SYST 154; BP_SYST 157; BP_DIAS 56; BP_DIAS 62; BP_DIAS 73; PULSE 62; RESP 20; TEMP 97.6; O2SAT 99
[2017-05-11] MEDS: AZTREONAM INJ 1,000 MG in SODIUM CHLORIDE 0.9% INJ 100 ML IV SCH (17:16)
--- NOTE | 2017-05-11 17:56 | PD.CONS ---
HPI Service Nephrology Consult Requested By Kymberly Casey Reason for Consult Acute and chronic kidney disease Primary Care Physician Hiro Martinez DO History of Present Illness Patient is a 67-year-old the white female with history of chronic kidney disease , diabetes, hypertension follows with Dr. Carey, for the chronic kidney disease she is having persistent nausea and vomiting accompanied with vertigo she said the word 4 weeks ago she had a blackout, she does have a history of atrial fibrillation in the past, she is unable to drink and eat properly because she has lost her appetite with persistent nausea. She came in with hypercalcemia she does take Tums and worsening of her renal insufficiency. She received hydration and her creatinine is declining. Review of Systems Constitutional: COMPLAINS OF: Fatigue Cardiovascular: COMPLAINS OF: Syncope Gastrointestinal: COMPLAINS OF: Nausea, Vomiting Neurologic: COMPLAINS OF: Abnormal gait, Poor Balance Past Family Social History Allergies: Coded Allergies: Aspirin (Verified Allergy, Severe, EDEMA, NAUSEA, 11/07/16) Demerol (Verified Allergy, Severe, HEART STOPPED, 11/07/16) Levaquin (Verified Allergy, Severe, PAIN, 11/07/16) Neurontin (Verified Allergy, Severe, THROAT CLOSES, 11/07/16) Penicillin (Verified Allergy, Severe, Swelling, 11/07/16) Uncoded Allergies: PACEMAKER (Adverse Reaction, Severe, NON CONDITIONAL PACEMAKER, 11/08/16) NON BIOTRONIK/MEDTRONIC VSV 11/08/16 Past Medical History Diabetes Hypertension Chronic kidney disease History of smoking COPD Atrial fibrillation AICD Past Surgical History Thyroidectomy Left carotid surgery AICD Reported Medications Reported Meds & Active Scripts Active Reported Potassium 99 Mg Tablet 99 Mg PO DAILY Vitamin D3 (Cholecalciferol) 1,000 Unit Tab 1,000 Units PO DAILY Fish Oil 1000 mg (Dunlap-3 Fatty Acids) 1 Cap Cap 1,000 Mg PO TID Magnesium 250 Mg Tab 500 Mg PO DAILY Tums (Calcium Carbonate (Antacid)) 500 Mg Chew 500 Mg PO PRN Calcium (Oyster Shell) 500 Mg Tab 500 Mg PO DAILY Combivent Respimat Inh (Ipratropium-Albuterol Inh) 20-100 Custodial/Act Aero 1 Puff INH 1-2 TIMES DAILY Lantus Inj (Insulin Glargine) 1,000 Unit/10 Ml Vial 10 Units SQ HS Novolog Flexpen Inj (Insulin Aspart) 300 Unit/3 Ml Pen 3 Units SQ TIDAC Ferrous Sulfate DR (Ferrous Sulfate) 325 Mg Tabdr 325 Mg PO DAILY Levothyroxine (Levothyroxine Sodium) 88 Mcg Tab 88 Mcg PO DAILY Isosorbide Mononitrate ER (Isosorbide Mononitrate) 30 Mg Dina 30 Mg PO DAILY Ranitidine (Ranitidine HCl) 150 Mg Cap 150 Mg PO BID Glyburide 5 Mg Tab 5 Mg PO BID Take with meals at the same time each day Bumetanide 1 Mg Tab 1 Mg PO BID Omeprazole 20 Mg Tab 20 Mg PO HS Lisinopril 5 Mg Tab 5 Mg PO DAILY Effient (Prasugrel) 10 Mg Tab 10 Mg PO DAILY Carvedilol 6.25 Mg Tab 6.25 Mg PO BID Calcitriol 0.5 Mcg Cap 0.5 Mcg PO DAILY Atorvastatin (Atorvastatin Calcium) 80 Mg Tab 80 Mg PO HS Ventolin Hfa 18 GM Inh (Albuterol Sulfate) 90 Mcg/Act Aer 2 Puff INH TID PRN Active Ordered Medications Current Medications Medications (Trade) Dose Ordered Sig/Antoinette Route Start Time Stop Time Status Last Admin (NS 1000 ml Inj) 1,000 ml @ 100 mls/hr Q10H IV 05/10/17 18:31 05/11/17 14:31 (NS Flush) 2 ml UNSCH PRN IV FLUSH 05/10/17 18:45 (NS Flush) 2 ml BID IV FLUSH 05/10/17 21:00 (Tylenol) 650 mg Q4H PRN PO 05/10/17 18:45 (Zofran Inj) 4 mg Q6H PRN IVP 05/10/17 18:45 (Heparin Inj) 5,000 units Q12H SQ 05/10/17 20:00 05/11/17 08:34 (Narcan Inj) 0.4 mg UNSCH PRN IV 05/10/17 18:45 (Mag-Ox) 400 mg BID PO 05/10/17 21:00 05/11/17 08:38 (Proair Hfa Inh) 2 puff TID PRN INH 05/10/17 20:00 (Lipitor) 80 mg HS PO 05/10/17 21:00 05/10/17 20:42 (Coreg) 6.25 mg BID PO 05/10/17 21:00 05/11/17 08:38 (Levemir Inj) 10 units HS SQ 05/10/17 21:00 05/10/17 20:45 (Imdur) 30 mg DAILY PO 05/11/17 09:00 05/11/17 08:38 (Synthroid) 88 mcg DAILY@06 PO 05/11/17 06:00 05/11/17 06:20 (Effient) 10 mg DAILY PO 05/11/17 09:00 05/11/17 08:38 (Ferrous Sulfate) 325 mg DAILY PO 05/11/17 09:00 05/11/17 08:38 (Protonix) 20 mg HS PO 05/10/17 21:00 05/10/17 20:42 (D50w (Vial) Inj) 50 ml UNSCH PRN IV 05/10/17 20:15 Glucagon 1 mg 1 mg UNSCH PRN OTHER 05/10/17 20:15 (Azactam Inj/NS Inj) 100 ml @ 200 mls/hr Q8H IV 05/11/17 17:00 05/11/17 17:16 (Vitamin D3) 600 units DAILY PO 05/12/17 09:00 Family History Noncontributory Social History Smokes half pack per day denies alcohol intake Physical Exam Vital Signs Vital Signs Date Time Temp Pulse Resp B/P Pulse Ox O2 Delivery O2 Flow Rate FiO2 05/11/17 16:05 97.6 62 20 134/62 99 157/73 154/56 05/11/17 12:39 98.1 59 20 113/56 96 05/11/17 08:25 96.3 61 20 150/71 96 05/11/17 03:57 97.9 60 18 108/48 95 05/10/17 23:37 97.6 60 16 108/45 96 05/10/17 20:35 96.2 71 18 163/67 99 Physical Exam GENERAL: Well-nourished, well-developed patient. SKIN: Warm and dry. HEAD: Normocephalic. EYES: No scleral icterus. No injection or drainage. NECK: Supple, trachea midline. No JVD or lymphadenopathy. CARDIOVASCULAR: Irregular RESPIRATORY: Breath sounds equal bilaterally. No accessory muscle use. GASTROINTESTINAL: Abdomen soft, non-tender, nondistended. EXTREMITIES: No cyanosis, or edema. NEUROLOGICAL: Awake, alert, and oriented x 3. Non-focal. Laboratory Laboratory Tests Test 05/10/17 05/11/17 18:35 08:00 Urine Color LIGHT-YELLOW Urine Turbidity HAZY Urine pH 7.0 Urine Specific [place] 1.007 Urine Protein NEG Urine Glucose (UA) NEG Urine Ketones NEG Urine Occult Blood NEG Urine Nitrite NEG Urine Bilirubin NEG Urine Urobilinogen LESS THAN 2.0 Urine Leukocyte Esterase LARGE Urine RBC 1 Urine WBC 31 Urine Squamous Epithelial 1 Cells Urine Amorphous Sediment RARE Urine Bacteria RARE Microscopic Urinalysis Comment CULTURE INDICATED Sodium Level 141 Potassium Level 3.9 Chloride Level 107 Carbon Dioxide Level 27.0 Anion Gap 7 Blood Urea Nitrogen 31 Creatinine 2.59 Estimat Glomerular Filtration 18 Rate Random Glucose 107 Calcium Level 11.9 Protein Corrected Calcium Magnesium Level 1.6 Total Protein 6.1 25-Hydroxy Vitamin D Total 27.4 Thyroid Stimulating Hormone 2.300 3rd Gen Parathyroid Hormone (Intact) LESS THAN 2.5 Date/Time Procedure Status Source Growth 05/10/17 18:35 Urine Culture - Preliminary Resulted Urine Random Urine IMMATURE GROWTH - REINCUBATE Result Diagram: 05/10/17 1520 05/11/17 0800 Imaging Last Impressions Head CT 05/10/17 1508 Signed Impressions: Service Date/Time: April 16:58 - CONCLUSION: Stable brain appearance. No acute intracranial findings.. 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 Moderate-sized hiatal hernia. Otherwise unremarkable exam. Hernan Encarnacion MD Assessment and Plan Problem List: (1) Acute kidney injury Plan: This is likely due to dehydration is already resolving with IV hydration at this point. Continue to hydrate and observe Avoid nephrotoxins Avoid dye studies or gadolinium (2) Chronic kidney disease Plan: Follows with Dr. Marshall (3) DM (diabetes mellitus) Plan: Monitor blood glucose (4) Hypercalcemia Plan: Resolving with hydration (5) CAD (coronary artery disease) Plan: AICD in place (6) Vertigo Plan: Continue to observe Tal Avalos MD May 11, 2017 17:56
[2017-05-11 20:00] VITALS: BP 153/68; PULSE 69; RESP 18; TEMP 97.4; O2SAT 94
[2017-05-11] MEDS: INSULIN DETEMIR 100 UNITS/ML VIAL SQ SCH (21:00)
[2017-05-11] MEDS: ATORVASTATIN 80 MG TAB PO SCH (21:31)
[2017-05-11] MEDS: PANTOPRAZOLE SOD 20 MG DELAYED RELEASE TAB PO SCH (21:31)
[2017-05-12] MEDS: AZTREONAM INJ 1,000 MG in SODIUM CHLORIDE 0.9% INJ 100 ML IV SCH ×2 (01:48→09:57)
[2017-05-12] MEDS: SODIUM CHLOR 0.9% 1000 ML INJ 1,000 ML IV SCH (01:57)
[2017-05-12 03:20] VITALS: BP 143/64; PULSE 60; RESP 18; TEMP 97.6; O2SAT 95
[2017-05-12 05:30] VITALS: BP 108/52; PULSE 64; RESP 18; TEMP 97.4; O2SAT 97
[2017-05-12] MEDS: LEVOTHYROXINE SODIUM 88 MCG TAB PO SCH (06:16)
[2017-05-12] MEDS: INSULIN ASPART SUPPLEMENTAL SCALE SQ SCH ×4 (07:00→21:00)
[2017-05-12 07:59] LABS: BICARBONATE 28.6 MEQ/L (21.0-32.0); MAGNESIUM 1.4 MG/DL (1.5-2.5)
[2017-05-12 08:06] VITALS: BP 145/65; PULSE 60; RESP 20; TEMP 97.2; O2SAT 95
--- NOTE | 2017-05-12 08:28 | HHI.PR ---
Subjective Remarks Follow-up hypercalcemia and acute kidney injury. States she is feeling much better resolved abdominal pain. She is avoiding denies shortness of breath. Discussed with RN Objective Vitals Vital Signs Date Time Temp Pulse Resp B/P Pulse Ox O2 Delivery O2 Flow Rate FiO2 05/12/17 08:06 97.2 60 20 145/65 95 05/12/17 05:30 97.4 64 18 108/52 97 05/12/17 03:20 97.6 60 18 143/64 95 05/11/17 20:00 97.4 69 18 153/68 94 05/11/17 16:05 97.6 62 20 134/62 99 157/73 154/56 05/11/17 12:39 98.1 59 20 113/56 96 05/11/17 08:25 96.3 61 20 150/71 96 I/O 05/11/17 05/11/17 05/11/17 05/12/17 05/12/17 05/12/17 07:00 15:00 23:00 07:00 15:00 23:00 Intake Total 926 ml 1186 ml 1200 ml Balance 926 ml 1186 ml 1200 ml Intake Oral 480 ml IV Total 926 ml 706 ml 1200 ml # Voids 3 3 # Bowel Movements 1 Result Diagram: 05/10/17 1520 05/12/17 0652 Objective Remarks GENERAL: This is a well-nourished, well-developed patient, in no apparent distress. SKIN: No rashes, ecchymoses or lesions. Cool and dry. HEAD: Atraumatic. Normocephalic. No temporal or scalp tenderness. EYES: Pupils equal round and reactive. Extraocular motions intact. No scleral icterus. No injection or drainage. ENT: Nose without bleeding, purulent drainage or septal hematoma. Throat without erythema, tonsillar hypertrophy or exudate. Uvula midline. Airway patent. Dry oral mucosa NECK: Trachea midline. No JVD or lymphadenopathy. Supple, nontender, no meningeal signs. CARDIOVASCULAR: Irregular rhythm regular rate RESPIRATORY: Clear to auscultation. Breath sounds equal bilaterally. No wheezes , rales, or rhonchi. GASTROINTESTINAL: Abdomen soft, non-tender, nondistended. No guarding. Normoactive bowel sounds MUSCULOSKELETAL: Extremities without clubbing, cyanosis, or edema. No joint tenderness, effusion, or edema noted. No calf tenderness. Negative Homans sign bilaterally. NEUROLOGICAL: Awake and alert. Cranial nerves II through XII intact. Motor and sensory grossly within normal limits. Five out of 5 muscle strength in all muscle groups. Normal speech. Nonfocal Procedures none A/P Problem List: (1) Hypercalcemia ICD Code: E83.52 Status: Acute (2) Acute kidney injury ICD Code: N17.9 Status: Acute (3) Hypomagnesemia ICD Code: E83.42 Status: Acute Assessment and Plan 1. Hypercalcemiaimproving continue IV fluid hydration. Repeat calcium in the morning. 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 Acute on chronic kidney disease stage IIIslowly improving continue IV fluid hydration. Avoid nephrotoxins. Hold diuretics and SHONA inhibitor lisinopril. Consult her child development assistant Dr. Carey. Patient has vitamin D deficiency on calcitriol dc vitamin D3 3. Diabetes mellitus type 2, insulin-dependenthold glyburide for now, continue Lantus and restart preprandial insulin with improved oral intake and hyperglycemia. Accu-Cheks with SSI to monitor glycemic levels 4. Hyperlipidemiacontinue with statin. 5. Hypertension- hold lisinopril due to acute kidney injury and monitor antihypertensives. Stable 6. Hypothyroidismlevothyroxine 7. Hypomagnesemiasupplement 8. History of chronic atrial fibrillationstatus post pacemaker rate controlled on Coreg. 9. Abnormal urinalysis. She complains of lower abdominal discomfort. Improved. Urine culture with contaminants discontinued aztreonam. Allergic to Levaquin and penicillin. 10. Epigastric pain and bloating. Lipase within normal limits. Continue PPI. Has duodenal diverticulum on CT. Outpatient follow-up with GI DVT prophylaxisheparin. Discharge Planning Possible discharge in the morning Mark Christian MD May 12, 2017 08:28
[2017-05-12] MEDS ORDERED: CHOLECALCIFEROL (VIT D3) 400 UNIT TAB PO SCH (09:00)
[2017-05-12] MEDS: HEPARIN SODIUM - SQ 10,000 UNITS/ML VIAL SQ SCH ×2 (09:13→21:19)
[2017-05-12] MEDS: CARVEDILOL 6.25 MG TAB PO SCH ×2 (09:14→21:21)
[2017-05-12] MEDS: FERROUS SULFATE 325 MG (65 MG ELEMENTAL IRON) TAB PO SCH (09:14)
[2017-05-12] MEDS: PRASUGREL 10 MG TAB PO SCH (09:14)
[2017-05-12] MEDS: MAGNESIUM OXIDE 400 MG TAB PO SCH ×2 (09:15→21:19)
[2017-05-12] MEDS: SODIUM CHLORIDE 0.9% FLUSH 10 ML FLUSH IV FLUSH SCH ×2 (09:15→21:00)
[2017-05-12] MEDS: ISOSORBIDE MONONITRATE 30 MG TAB PO SCH (09:15)
[2017-05-12] MEDS: SODIUM CHLOR 0.45% 1000 ML INJ 1,000 ML IV SCH ×2 (09:57→21:24)
--- NOTE | 2017-05-12 11:43 | HHI.DCPOC ---
Discharge Care Plan Diagnosis: (1) Hypercalcemia Your Health Problems Are: Difficulty with ADL Exercise Tolerance Goals to Promote Your Health * To prevent worsening of your condition and complications * To maintain your health at the optimal level Directions to Meet Your Goals Take your medications as prescribed Follow your dietary instruction Follow activity as directed Keep your appointments as scheduled Take your immunizations and boosters as scheduled If your symptoms worsen call your PCP, if no PCP go to Urgent Care Center or Emergency Room Smoking is Dangerous to Your Health. Avoid second hand smoke Call the 24-hour hour crisis hotline for domestic abuse at Mark Christian MD May 12, 2017 11:43
[2017-05-12] MEDS: INSULIN ASPART 1,000 UNITS/10 ML VIAL SQ SCH ×2 (12:20→17:12)
[2017-05-12 12:48] VITALS: BP 150/57; PULSE 63; RESP 20; TEMP 96.5; O2SAT 94
--- NOTE | 2017-05-12 16:09 | HHI.NPPN ---
Subjective Additional Remarks Feeling better today, no acute complaints Objective Data Data 05/11/17 05/12/17 19:00 07:00 Intake Total 1186 ml Balance 1186 ml Intake Oral 480 ml IV Total 706 ml # Voids 3 3 # Bowel Movements 1 Vital Signs Date Time Temp Pulse Resp B/P Pulse Ox O2 Delivery O2 Flow Rate FiO2 05/12/17 12:48 96.5 63 20 150/57 94 05/12/17 08:06 97.2 60 20 145/65 95 05/12/17 05:30 97.4 64 18 108/52 97 05/12/17 03:20 97.6 60 18 143/64 95 05/11/17 20:00 97.4 69 18 153/68 94 -: 05/10/17 1520 05/12/17 0652 Physical Exam General Appearance: Well Developed, Well Nourished, No Acute Distress Eyes Eye Exam: Pupils Equal Throat Throat Exam: Oral Mucosa [place] & Moist Neck Neck Exam: Neck Supple Pulmonary Resp Exam: Clear Bilaterally Cardiology CV Exam: Regular, Normal Sinus Rhythm, Good Perfusion Gastrointestinal/Abdomen GI Exam: Soft, Non-Tender, Bowel Sounds Present Musculoskeletal MS Exam: Joints Intact Integumentary Skin Exam: Warm, Dry, Intact Extremeties Extremities Exam: No Edema Neurologic Neuro Exam: Alert, Awake, Oriented, Speech Clear Psychiatric Psych Exam: Appropriate Responses Assessment/Plan Problem List: (1) Acute kidney injury Plan: This is likely due to dehydration Already resolving with IV hydration at this point. Continue to hydrate and observe Avoid nephrotoxins Avoid dye studies or gadolinium Ok for d/c tomorrow if labs stable (2) Chronic kidney disease Plan: Follows with Dr. Marshall (3) DM (diabetes mellitus) Plan: Monitor blood glucose (4) Hypercalcemia Plan: Resolving with hydration Has been on calcitriol, but took extra Tums. Extra Tums with volume depletion likely instigated hypercalcemia. Continues to improve with IVFs. (5) CAD (coronary artery disease) Plan: AICD in place (6) Vertigo Plan: Continue to observe Problem Qualifiers (1) Chronic kidney disease: Qualified Code: N18.3 - Stage 3 chronic kidney disease (2) DM (diabetes mellitus): Qualified Code: E13.22 - Other specified diabetes mellitus with diabetic chronic kidney disease, unspecified CKD stage, unspecified prison insulin use status Brandon Weir MD May 12, 2017 16:09
[2017-05-12 16:23] VITALS: BP 160/91; PULSE 60; RESP 20; TEMP 97.8; O2SAT 100
[2017-05-12] MEDS ORDERED: AZTREONAM INJ 500 MG in SODIUM CHLORIDE 0.9% INJ 100 ML IV SCH (17:00)
[2017-05-12 20:00] VITALS: BP 178/75; PULSE 61; RESP 20; TEMP 97.7; O2SAT 97
[2017-05-12] MEDS: INSULIN DETEMIR 100 UNITS/ML VIAL SQ SCH (21:00)
[2017-05-12] MEDS: PANTOPRAZOLE SOD 20 MG DELAYED RELEASE TAB PO SCH (21:19)
[2017-05-12] MEDS: ATORVASTATIN 80 MG TAB PO SCH (21:19)
[2017-05-13] VITALS: BP 159/68; PULSE 62; RESP 18; TEMP 98.3; O2SAT 93
[2017-05-13 04:00] VITALS: BP 119/51; PULSE 56; RESP 18; TEMP 98.3; O2SAT 95
[2017-05-13] MEDS: LEVOTHYROXINE SODIUM 88 MCG TAB PO SCH (05:37)
[2017-05-13] MEDS: INSULIN ASPART SUPPLEMENTAL SCALE SQ SCH ×2 (06:11→12:19)
[2017-05-13] MEDS: INSULIN ASPART 1,000 UNITS/10 ML VIAL SQ SCH ×2 (08:00→12:19)
[2017-05-13 08:08] VITALS: BP 162/70; PULSE 62; RESP 18; TEMP 97.1; O2SAT 93
[2017-05-13] MEDS ORDERED: CHOLECALCIFEROL (VIT D3) 1000 UNIT TAB PO SCH (09:00)
[2017-05-13] MEDS: ISOSORBIDE MONONITRATE 30 MG TAB PO SCH (09:11)
[2017-05-13] MEDS: HEPARIN SODIUM - SQ 10,000 UNITS/ML VIAL SQ SCH (09:11)
[2017-05-13] MEDS: FERROUS SULFATE 325 MG (65 MG ELEMENTAL IRON) TAB PO SCH (09:12)
[2017-05-13] MEDS: CARVEDILOL 6.25 MG TAB PO SCH (09:12)
[2017-05-13] MEDS: MAGNESIUM OXIDE 400 MG TAB PO SCH (09:12)
[2017-05-13] MEDS: PRASUGREL 10 MG TAB PO SCH (09:13)
[2017-05-13] MEDS: SODIUM CHLORIDE 0.9% FLUSH 10 ML FLUSH IV FLUSH SCH (09:14)
[2017-05-13] MEDS ORDERED: ISOS30TA3 PO (09:33)
--- NOTE | 2017-05-13 09:35 | HHI.PR ---
Subjective Remarks Follow-up hypercalcemia. Patient doing okay no voiding issues. 3 regular BMs today. Discussed with RN Objective Vitals Vital Signs Date Time Temp Pulse Resp B/P Pulse Ox O2 Delivery O2 Flow Rate FiO2 05/13/17 08:08 97.1 62 18 162/70 93 05/13/17 04:00 98.3 56 18 119/51 95 05/13/17 00:00 98.3 62 18 159/68 93 05/12/17 20:00 97.7 61 20 178/75 97 05/12/17 16:23 97.8 60 20 160/91 100 05/12/17 12:48 96.5 63 20 150/57 94 I/O 05/12/17 05/12/17 05/12/17 05/13/17 05/13/17 05/13/17 06:59 14:59 22:59 06:59 14:59 22:59 Intake Total 1860 ml 720 ml 800 ml Balance 1860 ml 720 ml 800 ml Intake Oral 720 ml IV Total 1860 ml 800 ml # Voids 3 4 3 # Bowel Movements 1 1 2 Result Diagram: 05/10/17 1520 05/12/17 0652 Objective Remarks GENERAL: This is a well-nourished, well-developed patient, in no apparent distress. SKIN: No rashes, ecchymoses or lesions. Cool and dry. HEAD: Atraumatic. Normocephalic. No temporal or scalp tenderness. EYES: Pupils equal round and reactive. Extraocular motions intact. No scleral icterus. No injection or drainage. ENT: Nose without bleeding, purulent drainage or septal hematoma. Throat without erythema, tonsillar hypertrophy or exudate. Uvula midline. Airway patent. NECK: Trachea midline. No JVD or lymphadenopathy. Supple, nontender, no meningeal signs. CARDIOVASCULAR: Irregular rhythm regular rate RESPIRATORY: Clear to auscultation. Breath sounds equal bilaterally. No wheezes , rales, or rhonchi. GASTROINTESTINAL: Abdomen soft, non-tender, nondistended. No guarding. Normoactive bowel sounds MUSCULOSKELETAL: Extremities without clubbing, cyanosis, or edema. No joint tenderness, effusion, or edema noted. No calf tenderness. Negative Homans sign bilaterally. NEUROLOGICAL: Awake and alert. Cranial nerves II through XII intact. Motor and sensory grossly within normal limits. Five out of 5 muscle strength in all muscle groups. Normal speech. Nonfocal Procedures none A/P Problem List: (1) Hypercalcemia ICD Code: E83.52 Status: Acute (2) Acute kidney injury ICD Code: N17.9 Status: Acute (3) Hypomagnesemia ICD Code: E83.42 Status: Acute Assessment and Plan 1. Hypercalcemia 2/2 volume depletion and Tumsimproving discontinue IV fluid hydration. Patient has history of hypocalcemia secondary to hypoparathyroidism( status post thyroidectomy) on calcitriol 2. Acute on chronic kidney disease stage IIIimproving close to baseline. Avoid nephrotoxins. Hold diuretics and SHONA inhibitor lisinopril. Consult her tourist cabin keeper Dr. Carey. Patient has vitamin D deficiency on calcitriol and vitamin D3 3. Diabetes mellitus type 2, insulin-dependenthold glyburide for now, continue Lantus and restart preprandial insulin with improved oral intake and hyperglycemia. Accu-Cheks with SSI to monitor glycemic levels 4. Hyperlipidemiacontinue with statin. 5. Hypertension- hold lisinopril due to acute kidney injury and monitor antihypertensives. Stable 6. Hypothyroidismlevothyroxine 7. Hypomagnesemiasupplement 8. History of chronic atrial fibrillationstatus post pacemaker rate controlled on Coreg. 9. Abnormal urinalysis. She complains of lower abdominal discomfort. Improved. Urine culture with contaminants discontinued aztreonam. Allergic to Levaquin and penicillin. 10. Epigastric pain and bloating. Lipase within normal limits. Continue PPI. Has duodenal diverticulum on CT. Outpatient follow-up with GI DVT prophylaxisheparin. Discharge Planning Stable for discharge Mark Christian MD May 13, 2017 09:35
[2017-05-13 10:13] LABS: MAGNESIUM 1.4 MG/DL (1.5-2.5); POTASSIUM 3.8 MEQ/L (3.5-5.1)
[2017-05-13 11:21] VITALS: BP 147/71; PULSE 60; RESP 18; TEMP 97.5; O2SAT 95
[2017-05-13] MEDS ORDERED: MAGNESIUM OXIDE 400 MG TAB PO ONE (11:45)
[2017-05-13] MEDS: SODIUM CHLOR 0.45% 1000 ML INJ 1,000 ML IV SCH (13:16)
--- NOTE | 2017-05-13 13:16 | HHI.DS ---
Discharge Summary Admission Date May 10, 2017 at 17:50 Discharge Date: May 13, 2017 Admitting Diagnosis hypercalcemia, acute renal insufficiency (1) Hypercalcemia ICD Code: E83.52 Diagnosis: Principal (2) Acute kidney injury ICD Code: N17.9 Diagnosis: Principal (3) Hypomagnesemia ICD Code: E83.42 Diagnosis: Principal Procedures none Brief History - From Admission 67-year-old pleasant female with a history of CAD, GERD, hypothyroidism, chronic atrial fibrillation status post pacemaker/AICD presents emergency room due to worsening symptoms of dizziness, polyuria, worsening nonspecific lower abdominal discomfort and pain for the past 4 weeks. Due to the symptoms worsening, patient was worried that she was in DKA and therefore came to emergency room today for further evaluation of her symptoms. She denies symptoms of dysuria, nor any hematuria. She describes the lower abdominal pain as a dull aching pain with a bandlike radiation towards her back. She denies any section symptoms of constipation or any diarrhea. She has not had any bloody stools or black tarry stools. She states that she is taking calcium supplements for her primary care physician her flight test data acquisition technician Dr. Salgado's cough. She is taking 1 calcium 500 mg tablets a day along with 3-4 tablets of Tylenol was on daily basis. She is also taking vitamin D supplements along with calcitriol. She is also compliant with her left proximal for her thyroid supplement. She reports having started insulin a few months back and is on a NovoLog 3 units prior to meals along with starting Lantus 10 units at night. She also describes associated symptoms or nausea along with dizziness with her symptoms. CBC/BMP: 05/10/17 1520 05/13/17 0833 Significant Findings Laboratory Tests Test 05/10/17 05/10/17 05/11/17 05/12/17 15:20 18:35 08:00 06:52 Monocytes (%) (Auto) 9.2 % (0.0-8.0) Monocytes # (Auto) 1.0 TH/MM3 (0-0.9) Activated Partial 30.6 SEC Thromboplast Time (24.3-30.1) Carbon Dioxide Level 33.9 MEQ/L (21.0-32.0) Blood Urea Nitrogen 31 MG/DL (7-18) 31 MG/DL (7-18) 27 MG/DL (7-18) Creatinine 2.66 MG/DL 2.59 MG/DL 2.33 MG/DL (0.50-1.00) (0.50-1.00) (0.50-1.00) Estimat Glomerular Filtration 18 ML/MIN (>89) 18 ML/MIN (>89) 21 ML/MIN (>89) Rate Calcium Level 13.6 MG/DL 11.9 MG/DL 10.7 MG/DL (8.5-10.1) (8.5-10.1) (8.5-10.1) Protein Corrected Calcium 13.2 MG/DL (8.5-10.1) Magnesium Level 1.3 MG/DL 1.4 MG/DL (1.5-2.5) (1.5-2.5) Troponin I LESS THAN 0.02 NG/ML (0.02-0.05) Urine Turbidity HAZY (CLEAR) Urine Leukocyte Esterase LARGE (NEG) Urine WBC 31 /hpf (0-5) Urine Bacteria RARE /hpf (NONE) Random Glucose 107 MG/DL (74-106) Total Protein 6.1 GM/DL (6.4-8.2) 25-Hydroxy Vitamin D Total 27.4 ng/ML (30-100) Parathyroid Hormone (Intact) LESS THAN 2.5 PG/ML (12.4-76.8) Sodium Level 146 MEQ/L (136-145) Chloride Level 112 MEQ/L (98-107) Test 05/13/17 08:33 Chloride Level 109 MEQ/L (98-107) Blood Urea Nitrogen 30 MG/DL (7-18) Creatinine 2.18 MG/DL (0.50-1.00) Estimat Glomerular Filtration 22 ML/MIN (>89) Rate Calcium Level 10.8 MG/DL (8.5-10.1) Magnesium Level 1.4 MG/DL (1.5-2.5) Imaging Last Impressions Head CT 05/10/17 1508 Signed Impressions: Service Date/Time: April 16:58 - CONCLUSION: Stable brain appearance. No acute intracranial findings.. 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 Moderate-sized hiatal hernia. Otherwise unremarkable exam. Hernan Encarnacion MD PE at Discharge GENERAL: This is a well-nourished, well-developed patient, in no apparent distress. SKIN: No rashes, ecchymoses or lesions. Cool and dry. HEAD: Atraumatic. Normocephalic. No temporal or scalp tenderness. EYES: Pupils equal round and reactive. Extraocular motions intact. No scleral icterus. No injection or drainage. ENT: Nose without bleeding, purulent drainage or septal hematoma. Throat without erythema, tonsillar hypertrophy or exudate. Uvula midline. Airway patent. NECK: Trachea midline. No JVD or lymphadenopathy. Supple, nontender, no meningeal signs. CARDIOVASCULAR: Irregular rhythm regular rate RESPIRATORY: Clear to auscultation. Breath sounds equal bilaterally. No wheezes , rales, or rhonchi. GASTROINTESTINAL: Abdomen soft, non-tender, nondistended. No guarding. Normoactive bowel sounds MUSCULOSKELETAL: Extremities without clubbing, cyanosis, or edema. No joint tenderness, effusion, or edema noted. No calf tenderness. Negative Homans sign bilaterally. NEUROLOGICAL: Awake and alert. Cranial nerves II through XII intact. Motor and sensory grossly within normal limits. Five out of 5 muscle strength in all muscle groups. Normal speech. Nonfocal Hospital Course 1. Hypercalcemia 2/2 volume depletion and Tumsimproving discontinue IV fluid hydration. Patient has history of hypocalcemia secondary to hypoparathyroidism( status post thyroidectomy) on calcitriol 2. Acute on chronic kidney disease stage IIIimproving close to baseline. Avoid nephrotoxins. Hold diuretics and SHONA inhibitor lisinopril. Consult her flight test data acquisition technician Dr. Carey. Patient has vitamin D deficiency on calcitriol and vitamin D3 3. Diabetes mellitus type 2, insulin-dependenthold glyburide for now, continue Lantus and restart preprandial insulin with improved oral intake and hyperglycemia. Accu-Cheks with SSI to monitor glycemic levels 4. Hyperlipidemiacontinue with statin. 5. Hypertension- hold lisinopril due to acute kidney injury and monitor antihypertensives. Suboptimal control increase isosorbide mononitrate to 60 mg daily and monitor 6. Hypothyroidismlevothyroxine 7. Hypomagnesemiasupplement 8. History of chronic atrial fibrillationstatus post pacemaker rate controlled on Coreg. 9. Abnormal urinalysis. She complains of lower abdominal discomfort. Improved. Urine culture with contaminants discontinued aztreonam. Allergic to Levaquin and penicillin. 10. Epigastric pain and bloating. Lipase within normal limits. Continue PPI. Has duodenal diverticulum on CT. Outpatient follow-up with GI DVT prophylaxisheparin. Pt Condition on Discharge: Stable Discharge Disposition: Discharge Home Discharge Time: > 30 minutes Discharge Instructions DIET: Follow Instructions for: Heart Healthy Diet, Diabetic Diet Activities you can perform: Regular-No Restrictions Activities to Avoid: Driving Follow up Referrals: Cardiology - 1 Week Nephrology - 1 Week PCP Follow-up - 1 Week New Orders: BASIC METABOLIC PROF - 1 Week New Medications: Isosorbide Mononitrate ER (Isosorbide Mononitrate ER) 30 Mg Dina 60 MG PO DAILY Blood Pressure Management #30 TAB Continued Medications: Albuterol 18 GM Inh (Ventolin Hfa 18 GM Inh) 90 Mcg/Act Aer 2 PUFF INH TID PRN SHORTNESS OF BREATH #0 Ref 0 INHALER Atorvastatin (Atorvastatin) 80 Mg Tab 80 MG PO HS Cholesterol Management #0 Ref 0 TAB Calcitriol (Calcitriol) 0.5 Mcg Cap 0.5 MCG PO DAILY Calcium Supplement #0 Ref 0 CAP Carvedilol (Carvedilol) 6.25 Mg Tab 6.25 MG PO BID #0 Ref 0 TAB Cholecalciferol (Vitamin D3) 1,000 Unit Tab 1000 UNITS PO DAILY Nutritional Supplement #1 Ref [address] (Ferrous Sulfate DR) 325 Mg Tabdr 325 MG PO DAILY Insulin Aspart Inj (Novolog Flexpen Inj) 300 Unit/3 Ml Pen 3 UNITS SQ TIDAC Blood Sugar Management #1 Ref 0 PEN Insulin Glargine Inj (Lantus Inj) 1,000 Unit/10 Ml Vial 10 UNITS SQ HS Blood Sugar Management Ref 0 VIAL Ipratropium-Albuterol Inh (Combivent Respimat Inh) 20-100 Retirement/Act Aero 1 PUFF INH 1-2 TIMES DAILY Asthma Management #1 Ref 0 INHALER Levothyroxine (Levothyroxine) 88 Mcg Tab 88 MCG PO DAILY Thyroid #30 Ref 0 TAB Magnesium (Magnesium) 250 Mg Tab 500 MG PO DAILY [place]-3 Fatty Acids (Fish Oil 1000 mg) 1 Cap Cap 1000 MG PO TID Omeprazole (Omeprazole) 20 Mg Tab 20 MG PO HS #0 Ref 0 TAB Prasugrel (Effient) 10 Mg Tab 10 MG PO DAILY Blood Clot Prevention #0 Ref 0 TAB Additional Information I spent 35 minutes [id number] with the patient or on the sage discussing the patient's disposition, prognosis, and plan of care with patient's caregivers. Over half the time spent was devoted to counseling the patient regarding placement in coordinating care with caregivers and case management. Mark Christian MD May 13, 2017 13:16
[2017-05-14] MEDS ORDERED: ISOSORBIDE MONONITRATE 60 MG TAB PO SCH (09:00)
== END 2017-05-13 14:47 | disposition home or self-care (01) | DRG 641 ==
LOC: NEPE 14:08 → NEDA 17:50 → N05A 19:58
PROVIDERS: ADMIT Internal Medicine; ATTEND Internal Medicine
DX: E83.52 Hypercalcemia (principal); N17.9 Acute kidney failure, unspecified; E11.22 Type 2 diabetes mellitus with diabetic chronic kidney disease; I50.9 Heart failure, unspecified; I13.0 Hypertensive heart and chronic kidney disease with heart failure and stage 1 through stage 4 chronic kidney disease, or unspecified chronic kidney disease; I48.2 Chronic atrial fibrillation; J44.9 Chronic obstructive pulmonary disease, unspecified; E89.0 Postprocedural hypothyroidism; E86.0 Dehydration; E78.5 Hyperlipidemia, unspecified; M19.90 Unspecified osteoarthritis, unspecified site; F17.210 Nicotine dependence, cigarettes, uncomplicated; I25.10 Atherosclerotic heart disease of native coronary artery without angina pectoris; N18.3 Chronic kidney disease, stage 3 (moderate); K57.10 Diverticulosis of small intestine without perforation or abscess without bleeding; E83.42 Hypomagnesemia; H91.90 Unspecified hearing loss, unspecified ear; K21.9 Gastro-esophageal reflux disease without esophagitis; I25.2 Old myocardial infarction; Z95.0 Presence of cardiac pacemaker; Z95.5 Presence of coronary angioplasty implant and graft; Z79.84 Long term (current) use of oral hypoglycemic drugs; Z79.4 Long term (current) use of insulin; Z23 Encounter for immunization; Z87.442 Personal history of urinary calculi; Z88.1 Allergy status to other antibiotic agents; Z95.810 Presence of automatic (implantable) cardiac defibrillator
CPT/HCPCS: 70450; 74176; 80048; 80053; 81001; 82010; 82306; 82550; 82652; 82948; 83690; 83735; 83970; 84155; 84443; 84484; 85025; 85610; 85730; 87086; 90732; 93005; 96361; 96374; J1644; J1815; J2405; J3475; J7030

== ENCOUNTER 2017-05-15 17:15 | Observation (INO) | payer MEDICARE, MEDICAID ==
[~2017-05-15] VITALS: Ht 160 cm; Wt 62.0 kg
[2017-05-15] VITALS (8 sets, daily range): BP systolic 93–137; BP diastolic 41–63; PULSE 60–65; RESP 16–20; TEMP 98.1–98.5; O2SAT 93–99
[~2017-05-15 17:15] MED LIST changes: +BUME1TAB PO; -BUME1TAB26 PO; +CALC500T35 PO; +ESSE250T PO; -FERR1TAB36 PO; +FERR325T2 PO; +FISH100020 PO; -GLYB2.5T3 PO; +GLYB5TAB3 PO; +IPRAAER INH; -ISOS20TA PO; +ISOS30TA3 PO; +LANTUS2P SQ; -LEVO125T4 PO; +LEVO88TA2 PO; +NOVOINJ3 SQ; +POTA99TA4 PO; +RANI150C PO; -RANI1TAB5 PO; -SPIR25TA PO; +TUMS500C PO; +VITA100018 PO
[2017-05-15] MEDS ORDERED: ONDANSETRON HCL 4 MG/2 ML VIAL IV PUSH ONE (17:30)
[2017-05-15] MEDS ORDERED: MECLIZINE HCL 25 MG TAB PO ONE (17:30)
[2017-05-15] MEDS ORDERED: SODIUM CHLORID 0.9% 500 ML INJ 500 ML IV ONE (17:30)
[2017-05-15] MEDS ORDERED: SODIUM CHLORIDE 0.9% FLUSH 10 ML FLUSH IVF PRN (17:30)
--- NOTE | 2017-05-15 17:36 | PD ---
HPI Chief Complaint: Dizziness Time Seen by Provider: 17:25 Travel History International Travel<30 days: No Contact w/Intl Traveler<30days: No Traveled to known affect area: No History of Present Illness HPI This is a 67-year-old female presents for evaluation of vertigo sensation, nausea and chest pain. For the past 3 weeks the patient has been having intermittent vertigo sensation as well as nausea. She was seen here on May 10 for severe hypercalcemia, acute renal insufficiency. She had a normal- appearing CT of the brain on May 10. Her hypercalcemia and acute renal insufficiency were attributed to dehydration and the use of Tums. She was discharged, feeling much improved, on May 13. Today at 3 PM she experienced worsening vertigo as well as a substernal chest tightness and this prompted evaluation. At this point in time she continues to have a degree of vertigo sensation, which is worse with movement, as well as mild chest tightness, slight shortness of breath and nausea. She denies any abdominal pain, diarrhea , rash, fevers or chills, cough or congestion. She has a history of chronic atrial fibrillation status post pacemaker/AICD placement, CAD, GERD, hypothyroidism, hyperlipidemia. No other complaints at this time. PFSH Past Medical History Hx Anticoagulant Therapy: Yes Arthritis: Yes Asthma: No Autoimmune Disease: No Blood Disorders: No Anxiety: No Depression: No Heart Rhythm Problems: No (afib) Cancer: No Cardiac Catheterization: Yes Cardiovascular Problems: Yes (afib, pacemaker) High Cholesterol: Yes Chemotherapy: No Chest Pain: Yes Congestive Heart Failure: Yes COPD: No Cerebrovascular Accident: No Coronary Artery Disease: Yes Diabetes: Yes Diminished Hearing: Yes ([place]) Endocrine: Yes Gastrointestinal Disorders: Yes (GERD) GERD: Yes Genitourinary: No Hiatal Hernia: Yes Hypertension: Yes Immune Disorder: No Implanted Vascular Access Dvce: Yes (pacer/defib) Kidney Stones: Yes Musculoskeletal: Yes Neurologic: No Psychiatric: No Reproductive: No Respiratory: No Migraines: No Myocardial Infarction: Yes Radiation Therapy: No Renal Failure: No Seizures: No Sickle Cell Disease: No Sleep Apnea: No Thyroid Disease: Yes Ulcer: No Menopausal: Yes Tubal Ligation: Yes Past Surgical History Abdominal Surgery: No AICD: Yes (placed 06/06/15) Arteriovenous Shunt: No Cardiac Surgery: Yes (Pacemaker/defibrillator) Coronary Stent: Yes (04/2014) Ear Surgery: No Endocrine Surgery: No Eye Surgery: No Genitourinary Surgery: No Gynecologic Surgery: No Hysterectomy: No Insulin Pump: No Joint Replacement: No Oral Surgery: No Pacemaker: Yes (06/04/15 [facility] [id number]) Thoracic Surgery: No Other Surgery: Yes (thyroidectomy ) Social History Alcohol Use: No Tobacco Use: Yes Substance Use: No Allergies-Medications (Allergen,Severity, Reaction): Coded Allergies: Aspirin (Verified Allergy, Severe, EDEMA, NAUSEA, 11/07/16) Demerol (Verified Allergy, Severe, HEART STOPPED, 11/07/16) Levaquin (Verified Allergy, Severe, PAIN, 11/07/16) Neurontin (Verified Allergy, Severe, THROAT CLOSES, 11/07/16) Penicillin (Verified Allergy, Severe, Swelling, 11/07/16) Uncoded Allergies: PACEMAKER (Adverse Reaction, Severe, NON CONDITIONAL PACEMAKER, 11/08/16) NON BIOTRONIK/MEDTRONIC VSV 11/08/16 Reported Meds & Prescriptions Reported Meds & Active Scripts Active Isosorbide Mononitrate ER (Isosorbide Mononitrate) 30 Mg Dina 60 Mg PO DAILY Reported Potassium 99 Mg Tablet 99 Mg PO DAILY Vitamin D3 (Cholecalciferol) 1,000 Unit Tab 1,000 Units PO DAILY Fish Oil 1000 mg ([employer]-3 Fatty Acids) 1 Cap Cap 1,000 Mg PO TID Magnesium 250 Mg Tab 500 Mg PO DAILY Tums (Calcium Carbonate (Antacid)) 500 Mg Chew 500 Mg PO PRN Calcium (Oyster Shell) 500 Mg Tab 500 Mg PO DAILY Combivent Respimat Inh (Ipratropium-Albuterol Inh) 20-100 Group Home/Act Aero 1 Puff INH 1-2 TIMES DAILY Lantus Inj (Insulin Glargine) 1,000 Unit/10 Ml Vial 10 Units SQ HS Novolog Flexpen Inj (Insulin Aspart) 300 Unit/3 Ml Pen 3 Units SQ TIDAC Ferrous Sulfate DR (Ferrous Sulfate) 325 Mg Tabdr 325 Mg PO DAILY Levothyroxine (Levothyroxine Sodium) 88 Mcg Tab 88 Mcg PO DAILY Isosorbide Mononitrate ER (Isosorbide Mononitrate) 30 Mg Dina 30 Mg PO DAILY Ranitidine (Ranitidine HCl) 150 Mg Cap 150 Mg PO BID Glyburide 5 Mg Tab 5 Mg PO BID Take with meals at the same time each day Bumetanide 1 Mg Tab 1 Mg PO BID Omeprazole 20 Mg Tab 20 Mg PO HS Lisinopril 5 Mg Tab 5 Mg PO DAILY Effient (Prasugrel) 10 Mg Tab 10 Mg PO DAILY Carvedilol 6.25 Mg Tab 6.25 Mg PO BID Calcitriol 0.5 Mcg Cap 0.5 Mcg PO DAILY Atorvastatin (Atorvastatin Calcium) 80 Mg Tab 80 Mg PO HS Ventolin Hfa 18 GM Inh (Albuterol Sulfate) 90 Mcg/Act Aer 2 Puff INH TID PRN Review of Systems Except as stated in HPI: all other systems reviewed are Neg Physical Exam Narrative GENERAL: Pleasant well-developed well-nourished female in no acute distress sitting upright in hospital bed vital signs reviewed SKIN: Warm and dry. HEAD: Atraumatic. Normocephalic. EYES: Pupils equal and round reactive to light extraocular muscles are intact no nystagmus. No scleral icterus. No injection or drainage. ENT: No nasal bleeding or discharge. Mucous membranes pink and moist. NECK: Trachea midline. No JVD. CARDIOVASCULAR: Regular rate and rhythm. No murmur appreciated. RESPIRATORY: No accessory muscle use. Clear to auscultation. Breath sounds equal bilaterally. GASTROINTESTINAL: Abdomen soft, non-tender, nondistended. Hepatic and splenic margins not palpable. MUSCULOSKELETAL: No obvious deformities. No clubbing. No cyanosis. No edema. NEUROLOGICAL: Awake and alert. No obvious cranial nerve deficits. Motor grossly within normal limits. Normal speech. PSYCHIATRIC: Appropriate mood and affect; insight and judgment normal. Data Data Last Documented VS Vital Signs Date Time Temp Pulse Resp B/P Pulse Ox O2 Delivery O2 Flow Rate FiO2 05/15/17 18:30 60 16 107/53 96 Room Air 05/15/17 17:16 98.5 Orders Electrocardiogram (05/15/17 17:30) Basic Metabolic Panel (Bmp) (05/15/17 17:30) Ckmb (Isoenzyme) Profile (05/15/17 17:30) Complete Blood Count With Diff (05/15/17 17:30) Magnesium (Mg) (05/15/17 17:30) Prothrombin Time / Inr (Pt) (05/15/17 17:30) Act Partial Throm Time (Ptt) (05/15/17 17:30) Troponin I (05/15/17 17:30) Chest, Single Ap (05/15/17 17:30) Ecg Monitoring (05/15/17 17:30) Bilateral Bp Monitoring (05/15/17 17:30) Iv Access Insert/Monitor (05/15/17 17:30) Oximetry (05/15/17 17:30) Oxygen Administration (05/15/17 17:30) Sodium Chloride 0.9% Flush (Ns Flush) (05/15/17 17:30) Meclizine (Antivert) (05/15/17 17:30) Ondansetron Inj (Zofran Inj) (05/15/17 17:30) Sodium Chlorid 0.9% 500 Ml Inj (Ns 500 M (05/15/17 17:30) CKMB (05/15/17 17:45) CKMB% (05/15/17 17:45) Potassium Chloride (Kcl) (05/15/17 18:45) Admit Order (Ed Use Only) (05/15/17 18:42) Labs Laboratory Tests Test 05/15/17 17:45 White Blood Count 8.9 TH/MM3 Red Blood Count 3.44 MIL/MM3 Hemoglobin 10.3 GM/DL Hematocrit 30.8 % Mean Corpuscular Volume 89.6 FL Mean Corpuscular Hemoglobin 29.9 PG Mean Corpuscular Hemoglobin 33.3 % Concent Red Cell Distribution Width 13.9 % Platelet Count 189 TH/MM3 Mean Platelet Volume 10.4 FL Neutrophils (%) (Auto) 67.6 % Lymphocytes (%) (Auto) 20.7 % Monocytes (%) (Auto) 9.4 % Eosinophils (%) (Auto) 2.0 % Basophils (%) (Auto) 0.3 % Neutrophils # (Auto) 6.0 TH/MM3 Lymphocytes # (Auto) 1.8 TH/MM3 Monocytes # (Auto) 0.8 TH/MM3 Eosinophils # (Auto) 0.2 TH/MM3 Basophils # (Auto) 0.0 TH/MM3 CBC Comment DIFF FINAL Differential Comment Prothrombin Time 10.3 SEC Prothromb Time International 0.9 RATIO Ratio Activated Partial 30.3 SEC Thromboplast Time Sodium Level 142 MEQ/L Potassium Level 3.4 MEQ/L Chloride Level 105 MEQ/L Carbon Dioxide Level 29.3 MEQ/L Anion Gap 8 MEQ/L Blood Urea Nitrogen 21 MG/DL Creatinine 1.93 MG/DL Estimat Glomerular Filtration 26 ML/MIN Rate Random Glucose 174 MG/DL Calcium Level 8.6 MG/DL Magnesium Level 1.7 MG/DL Total Creatine Kinase 107 U/L Creatine Kinase MB 1.3 NG/ML Troponin I 0.02 NG/ML MDM Medical Decision Making Medical Screen Exam Complete: Yes Emergency Medical Condition: Yes Medical Record Reviewed: Yes Interpretation(s) EKG electronically paced rhythm Differential Diagnosis BPPV, Mnire's, left otitis, central CVA, acoustic neuroma, electrolyte abnormality, arrhythmia, acute coronary syndrome, pericarditis, myocarditis, pulmonary embolism, aortic dissection Narrative Course This is a 67-year-old female who is recently discharged after being admitted for evaluation of hypercalcemia, acute renal insufficiency, vertigo sensation. She presents with worsening vertigo as well as substernal chest tightness for the past few hours. She had a normal CT the brain on May 10. Given her persistent vertigo symptoms, and MRI of the brain has been ordered. Plans for basic lab work, 12-lead EKG, ECG monitoring and pulse oximetry. She'll be given IV fluid bolus, meclizine, Zofran for symptom treatment. The patient reports that her engineer automated equipment Dr. Hogue as informed her in the past that her AICD/PM is not compatible with MRI. She has a [employer] device. I discussed with the biofuels production technician who does believe that this is not compatible. Therefore the MRI was canceled. The patient's lab work and imaging studies. Review. Upon reexamination her chest pain is very minimal and her vertigo sensation is somewhat improved. The plan would be to admit the patient to the hospitalist group for serial cardiac enzymes and rule out purposes. Discussed with the hospitalist who is agreeable. Diagnosis Primary Impression: Chest pain Qualified Code: R07.9 - Chest pain, unspecified type Additional Impression: Vertigo Admitting Information Admitting Physician Requests: Delbert Childers May 15, 2017 17:36
[2017-05-15 18:00] LABS: BASOPHIL % 0.3 % (0.0-2.0); EOSINOPHIL # 0.2 TH/MM3 (0-0.4); HEMATOCRIT 30.8 % (35.0-46.0); HEMO FLAGS DIFF FINAL; LYMPH % 20.7 % (9.0-44.0); LYMPHOCYTE # 1.8 TH/MM3 (1.0-4.8); MEAN CELL VOLUME 89.6 FL (80.0-100.0); MEAN CORPUSCULAR HEMOGLOBIN 29.9 PG (27.0-34.0); MEAN CORPUSCULAR HGB CONC 33.3 % (32.0-36.0); MONO % 9.4 % (0.0-8.0); NEUT % 67.6 % (16.0-70.0); PLATELET COUNT 189 TH/MM3 (150-450); RED BLOOD COUNT 3.44 MIL/MM3 (4.00-5.30); RED CELL DISTRIBUTION WIDTH 13.9 % (11.6-17.2); WHITE BLOOD COUNT 8.9 TH/MM3 (4.0-11.0)
[2017-05-15 18:09] LABS: APTT (PATIENT) 30.3 SEC (24.3-30.1); INTERNATIONAL NORMALIZED RATIO 0.9 RATIO; PROTHROMBIN TIME - PATIENT 10.3 SEC (9.8-11.6)
[2017-05-15 18:28] LABS: ANION GAP 8 MEQ/L (5-15); BICARBONATE 29.3 MEQ/L (21.0-32.0); BLOOD UREA NITROGEN 21 MG/DL (7-18); CHLORIDE 105 MEQ/L (98-107); CREATINE KINASE 107 U/L (26-192); GLOMERULAR FILTRATION RATE 26 ML/MIN (>89); MAGNESIUM 1.7 MG/DL (1.5-2.5); POTASSIUM 3.4 MEQ/L (3.5-5.1); SODIUM (NA) 142 MEQ/L (136-145)
[2017-05-15 18:42] LABS: CKMB 1.3 NG/ML (0.5-3.6)
[2017-05-15] MEDS ORDERED: POTASSIUM CHLORIDE 20 MEQ CONTROLLED RELEASE TAB PO ONE (18:45)
--- NOTE | 2017-05-15 18:49 | RADRPT ---
EXAM DATE/TIME: 05/15/2017 17:43 [facility] COMPARISON: No previous studies available for comparison. INDICATIONS : Dizziness. Short of breath. MEDICAL HISTORY : Hypertension. Diabetes mellitus type II. SURGICAL HISTORY : Pacemaker. Carotid stent. ENCOUNTER: Initial ACUITY: 1 month PAIN SCORE: 5/10 LOCATION: Left chest FINDINGS: A single view of the chest demonstrates mild basilar atelectasis. Pacer leads overlie right atrium, r ight ventricle and coronary sinus. No effusions. No pneumothorax. Cardiomegaly. CONCLUSION: 1. Minimal basilar atelectasis. Pacer leads unchanged. Daniel Culver MD on May 15, 2017 at 18:46 Board Certified Radiologist. This report was verified electronically.
[2017-05-15] MEDS ORDERED: MAGNESIUM HYDROXIDE SUSP 30 ML CUP PO PRN (20:15)
[2017-05-15] MEDS ORDERED: ACETAMINOPHEN 325 MG TAB PO PRN (20:15)
[2017-05-15] MEDS ORDERED: SENNOSIDES 8.6 MG TAB PO PRN (20:15)
[2017-05-15] MEDS ORDERED: ONDANSETRON HCL 4 MG/2 ML VIAL IVP PRN (20:15)
[2017-05-15] MEDS ORDERED: DEXTROSE 50% IN WATER 50 ML VIAL(D50) IV PRN (20:15)
[2017-05-15] MEDS ORDERED: NALOXONE HCL 0.4 MG/ML AMP IV PRN (20:15)
[2017-05-15] MEDS ORDERED: GLUCAGON 1 MG/ML VIAL OTHER PRN (20:15)
[2017-05-15] MEDS ORDERED: SODIUM CHLORIDE 0.9% FLUSH 10 ML FLUSH IV FLUSH PRN (20:15)
[2017-05-15] MEDS: SODIUM CHLORIDE 0.9% FLUSH 10 ML FLUSH IV FLUSH SCH (21:00)
[2017-05-15] MEDS: INSULIN ASPART SUPPLEMENTAL SCALE SQ SCH (21:00)
[2017-05-15] MEDS: HEPARIN SODIUM - SQ 10,000 UNITS/ML VIAL SQ SCH (22:57)
[2017-05-16] VITALS (11 sets, daily range): BP systolic 100–160; BP diastolic 42–69; PULSE 59–74; RESP 12–20; TEMP 97.7–98.8; O2SAT 91–97
--- NOTE | 2017-05-16 04:13 | HHI.HP ---
HPI [facility] Primary [facility] Physician Hiro Martinez DO Admission Diagnosis chest pain, vertigo Diagnoses: Chief Complaint: dizziness Travel History International Travel<30 Days: No Contact w/Intl Traveler <30 Da: No Traveled to Known Affected Are: No History of Present Illness History from patient, ER provider notes, and review of medical records. Patient reported that she just has not been doing well. she states she was extremely dizzy. She states that she gets these episodes with severe dizziness kicks in, followed by nausea and she literally have to sit down because she just felt too weak. She states she can't do anything because of these episodes. She also reports that the room was spinning around her when these episodes come. Denies any ear ringing. Denies any pain in her ears. Denies fever. She did report of visual disturbances which occurred during these episodes. Does not stay long. She described it as blots are white lesions which stays in her peripheral vision bilaterally in a ak chin. Patient was discharged from our hospital until a second 2016. She was admitted since May 10, 2017. She reports that at that time, she was having some abdominal pain, pointing to the mid epigastrium. She was briefly treated with antibiotics and was told later that it was not an infection and therefore antibiotics were taken out. She was found to have hypercalcemia, hypomagnesemia magnesium, and was treated for those. Patient reports that she has parathyroidectomy done and therefore she takes multiple doses of calcium supplements at home. Per ER report, patient was also complaining of chest pain this time. Patient herself however denies any chest pains to me. She reports that she is having more of needle sensation around her pacemaker site. She denies fever. denies any urinary burning or pain on urination. Denies diarrhea. did have some constipation. Denies any blood in her stool or urine. Review of Systems Except as stated in HPI: all other systems reviewed are Neg Past Family Social History Past Medical History htn dm cad s/p stent congestive heart failure afib ckd - Dr Carey no copd/ emphysema- sees Dr Wild, and was told no copd s/p thyroidectomy s/p parathyroidectomy hypothyroidism Past Surgical History coronary angiogram and stenting thyroidectomy parathyroidectomy tubal ligation cea- left spinal surgery venous stripping for varicosity inguinal hernia repair Allergies: Coded Allergies: Aspirin (Verified Allergy, Severe, EDEMA, NAUSEA, 11/07/16) Demerol (Verified Allergy, Severe, HEART STOPPED, 11/07/16) Levaquin (Verified Allergy, Severe, PAIN, 11/07/16) Neurontin (Verified Allergy, Severe, THROAT CLOSES, 11/07/16) Penicillin (Verified Allergy, Severe, Swelling, 11/07/16) Uncoded Allergies: PACEMAKER (Adverse Reaction, Severe, NON CONDITIONAL PACEMAKER, 11/08/16) NON BIOTRONIK/MEDTRONIC VSV 11/08/16 Family History no family hx of any medical problems Social History about 1/2 pack a day no drinking etoh no drugs lives by herself, no longer driving Physical Exam Vital Signs Vital Signs Date Time Temp Pulse Resp B/P Pulse Ox O2 Delivery O2 Flow Rate FiO2 05/16/17 00:16 63 05/16/17 00:00 106/65 05/15/17 23:29 98.1 65 20 93/41 93 05/15/17 22:47 62 05/15/17 21:15 98.2 60 20 127/56 93 05/15/17 20:31 60 18 130/60 98 05/15/17 19:02 60 18 120/59 98 Room Air 05/15/17 18:30 60 16 107/53 96 Room Air 05/15/17 17:38 99 Room Air 05/15/17 17:38 99 Room Air 05/15/17 17:23 18 99 Room Air 05/15/17 17:16 98.5 62 16 137/63 99 Room Air Physical Exam GENERAL: This is a well-nourished, well-developed patient, in no apparent distress. SKIN: No rashes, ecchymoses or lesions. Cool and dry. HEAD: Atraumatic. Normocephalic. No temporal or scalp tenderness. EYES: Pupils equal round and reactive. Extraocular motions intact. No scleral icterus. No injection or drainage. ENT: Nose without bleeding, purulent drainage or septal hematoma. Throat without erythema, tonsillar hypertrophy or exudate. Uvula midline. Airway patent. NECK: Trachea midline. No JVD or lymphadenopathy. Supple, nontender, no meningeal signs. CARDIOVASCULAR: Regular rate and rhythm without murmurs, gallops, or rubs. RESPIRATORY: Clear to auscultation. Breath sounds equal bilaterally. No wheezes , rales, or rhonchi. GASTROINTESTINAL: Abdomen soft, non-tender, nondistended. No hepato-splenomegaly , or palpable masses. No guarding. MUSCULOSKELETAL: Extremities without clubbing, cyanosis, or edema. No joint tenderness, effusion, or edema noted. No calf tenderness. Negative Homans sign bilaterally. NEUROLOGICAL: Awake and alert. Cranial nerves II through XII intact. Motor and sensory grossly within normal limits. Five out of 5 muscle strength in all muscle groups. Normal speech. Laboratory Laboratory Tests Test 05/15/17 05/16/17 17:45 00:04 White Blood Count 8.9 Red Blood Count 3.44 Hemoglobin 10.3 Hematocrit 30.8 Mean Corpuscular Volume 89.6 Mean Corpuscular Hemoglobin 29.9 Mean Corpuscular Hemoglobin 33.3 Concent Red Cell Distribution Width 13.9 Platelet Count 189 Mean Platelet Volume 10.4 Neutrophils (%) (Auto) 67.6 Lymphocytes (%) (Auto) 20.7 Monocytes (%) (Auto) 9.4 Eosinophils (%) (Auto) 2.0 Basophils (%) (Auto) 0.3 Neutrophils # (Auto) 6.0 Lymphocytes # (Auto) 1.8 Monocytes # (Auto) 0.8 Eosinophils # (Auto) 0.2 Basophils # (Auto) 0.0 CBC Comment DIFF FINAL Differential Comment Prothrombin Time 10.3 Prothromb Time International 0.9 Ratio Activated Partial 30.3 Thromboplast Time Sodium Level 142 Potassium Level 3.4 Chloride Level 105 Carbon Dioxide Level 29.3 Anion Gap 8 Blood Urea Nitrogen 21 Creatinine 1.93 Estimat Glomerular Filtration 26 Rate Random Glucose 174 Calcium Level 8.6 Magnesium Level 1.7 Total Creatine Kinase 107 81 Creatine Kinase MB 1.3 Troponin I 0.02 0.02 Result Diagram: 05/15/17174405/15/171744 Septic Shock Reassessment Peripheral Pulses: Weak Right Radial Assessment and Plan Assessment and Plan Impression: Vertigopatient's symptoms are most consistent with the diagnosis of vertigo. MRI cannot be done given the patient has cochlear implant. Possible worsening carotid artery stenosispatient with right carotid bruit. She has had left CEA. Prior imaging studies from October 2016reviewed. Possible CVA versus TIA htn dm cad s/p stent congestive heart failure afib ckd - Dr Carey no copd/ emphysema- sees Dr Wild, and was told no copd s/p thyroidectomy s/p parathyroidectomy hypothyroidism Plan: Physical therapy consult for gait evaluation. Would obtain CTA of the neck since the carotid sono which was done in October 2016 revealing abnormal studies. Trial of meclizine was given in ER. Patient denies improvement with that. We'll try a few more doses of meclizine during the day to see if there is any improvement. Also would enter gait patient's pacemaker. Echocardiogram which was done in February 2015reviewed. No significant valvular pathology. LVEF preserved. Obtain repeat echo. Monitor fingersticks. DVT prophylaxiswith heparin. Discussed Condition With patient, nursing staff Nirmal Fu MD May 16, 2017 04:13
[2017-05-16] MEDS ORDERED: MECLIZINE HCL 25 MG TAB PO PRN ×2 (04:30→07:45)
[2017-05-16] MEDS ORDERED: PILL SPLITTER OTHER PRN (04:45)
[2017-05-16] MEDS: LEVOTHYROXINE SODIUM 88 MCG TAB PO SCH (06:00)
[2017-05-16] MEDS: INSULIN ASPART SUPPLEMENTAL SCALE SQ SCH ×4 (06:18→21:37)
[2017-05-16] MEDS: HEPARIN SODIUM - SQ 10,000 UNITS/ML VIAL SQ SCH ×3 (06:33→23:32)
[2017-05-16] MEDS ORDERED: glyBURIDE 5 MG TAB PO SCH (07:00)
[2017-05-16 08:29] LABS: BICARBONATE 26.8 MEQ/L (21.0-32.0); POTASSIUM 3.6 MEQ/L (3.5-5.1)
[2017-05-16] MEDS: PRASUGREL 10 MG TAB PO SCH (08:49)
[2017-05-16] MEDS: CARVEDILOL 6.25 MG TAB PO SCH ×2 (08:49→20:31)
[2017-05-16] MEDS: LISINOPRIL 5 MG TAB PO SCH (08:51)
[2017-05-16] MEDS: MAGNESIUM OXIDE 400 MG TAB PO SCH (08:51)
[2017-05-16] MEDS: FAMOTIDINE 20 MG TAB PO SCH ×2 (08:51→21:35)
[2017-05-16] MEDS: ISOSORBIDE MONONITRATE 60 MG TAB PO SCH (08:51)
[2017-05-16] MEDS: SODIUM CHLORIDE 0.9% FLUSH 10 ML FLUSH IV FLUSH SCH ×2 (08:51→21:00)
--- NOTE | 2017-05-16 08:56 | EKG ---
Date Performed: 05/16/2017 Time Performed: 06:07:49 PTAGE: 67 years EKG: ELECTRONIC ATRIAL PACEMAKER ELECTRONIC VENTRICULAR PACEMAKER ABNORMAL RHYTHM ECG PREVIOUS TRACING : 05/16/2017 00.44 DOCTOR: Fish Albert Interpretating Date/Time 05/16/2017 08:55:00
[2017-05-16] MEDS ORDERED: BUMETANIDE 1 MG TAB PO SCH (09:00)
--- NOTE | 2017-05-16 09:15 | EKG ---
Date Performed: 05/16/2017 Time Performed: 00:44:41 PTAGE: 67 years EKG: ELECTRONIC VENTRICULAR PACEMAKER ABNORMAL RHYTHM ECG PREVIOUS TRACING : 05/16/2017 00.44 DOCTOR: Fish Albert Interpretating Date/Time 05/16/2017 09:14:15
[2017-05-16] MEDS ORDERED: SODIUM CHLOR 0.9% 1000 ML INJ 1,000 ML IV SCH (09:45)
--- NOTE | 2017-05-16 09:49 | EKG ---
Date Performed: 05/15/2017 Time Performed: 17:45:58 PTAGE: 67 years EKG: ELECTRONIC ATRIAL PACEMAKER ELECTRONIC VENTRICULAR PACEMAKER ABNORMAL RHYTHM ECG PREVIOUS TRACING : 05/10/2017 15.24 DOCTOR: Fish Albert Interpretating Date/Time 05/16/2017 09:48:12
--- NOTE | 2017-05-16 11:44 | HHI.PR ---
Subjective Remarks Follow-up for vertigo. Patient states yesterday she had acute onset of room spinning sensation. Her symptoms are improving some today, but she still feels a little unsteady on her feet and working with PT. She states she was recently started on insulin one month ago, and has been battling low blood sugars. She denies any vomiting or diarrhea. She has been told that she may need to have a right carotid endarterectomy in the future. She reports meclizine did help some. She states that she's been having low blood sugar readings at home, and would prefer to go onto a sliding scale. Objective Vitals Vital Signs Date Time Temp Pulse Resp B/P Pulse Ox O2 Delivery O2 Flow Rate FiO2 05/16/17 10:40 97.8 60 12 111/55 95 121/42 101/51 05/16/17 07:59 98.0 59 20 100/49 93 05/16/17 04:53 97.7 68 18 112/55 96 05/16/17 04:51 18 97 05/16/17 04:18 60 05/16/17 00:16 63 05/16/17 00:00 106/65 05/15/17 23:29 98.1 65 20 93/41 93 05/15/17 22:47 62 05/15/17 21:15 98.2 60 20 127/56 93 05/15/17 20:31 60 18 130/60 98 05/15/17 19:02 60 18 120/59 98 Room Air 05/15/17 18:30 60 16 107/53 96 Room Air 05/15/17 17:38 99 Room Air 05/15/17 17:38 99 Room Air 05/15/17 17:23 18 99 Room Air 05/15/17 17:16 98.5 62 16 137/63 99 Room Air Result Diagram: 05/15/17 1745 05/16/17 0648 Imaging Last Impressions Chest X-Ray 05/15/17 1730 Signed Impressions: Service Date/Time: Monday, May 15, 2017 17:43 - CONCLUSION: 1. Minimal basilar atelectasis. Pacer leads unchanged. Daniel Culver MD Objective Remarks GENERAL: Well-developed well-nourished. In no acute distress. SKIN: Warm and dry. No lesions noted. HEENT: Normocephalic. Pupils equal and round. Mucous membranes pink and moist. Bilateral carotid bruits. CARDIOVASCULAR: Regular rate and rhythm. No murmur appreciated. RESPIRATORY: No accessory muscle use. Clear to auscultation. Breath sounds equal bilaterally. GASTROINTESTINAL: Abdomen soft, non-tender, nondistended. Bowel sounds x4. MUSCULOSKELETAL: No obvious deformities. No clubbing or cyanosis. No edema. NEUROLOGICAL: Awake and alert. No focal neurological deficits. Moves upper and lower extremities spontaneously. Normal speech. PSYCHIATRIC: Appropriate mood and affect; insight and judgment normal. A/P Assessment and Plan 67-year-old female with a past history of HTN, DM, CAD, CHF, A. fib, CKD, hypothyroidism who presented with symptoms of room spinning dizziness Vertigo: Cannot perform MRIs due to cochlear implant and pacemaker; cannot perform CTAs due to renal function. Patient does have carotid artery disease, which is being monitored by Dr. Hogue. Carotid ultrasound from October showed atherosclerotic disease with no significant stenosis at that time, will repeat. Continue meclizine as needed. Echocardiogram ordered. Non- orthostatic. PT consulted, recommended [facility]. Interrogate pacemaker. Diabetes mellitus with hypoglycemia: Patient was recently started on insulin one month ago. She reports low blood sugar readings at home. Check hemoglobin A1c. Stop glyburide. Change preprandial scheduled insulin to sliding scale. Continue baseline insulin. Monitor. Mild rhabdomyolysis: CPK increased to 667. Unclear etiology. Gentle IVF. Monitor CPK and renal function. CKD stage 3/4: Patient with recent admission for FAIZAN. Creatinine continues to improve, stable at 1.8 currently. Monitor renal function. Other chronic medical conditions include HTN, asthma, GERD, HLD, anemia, CHF, CAD, hypothyroidism: Stable at this time and will continue home medications as indicated. DVT prophylaxis: Heparin. Discharge Planning Hopefully discharge tomorrow with [facility]. Monitor clinical course. Cj Hunt May 16, 2017 11:44
[2017-05-16 12:02] LABS: AUTOMATED NEUTROPHIL # 4.4 TH/MM3 (1.8-7.7); BASOPHIL % 0.5 % (0.0-2.0); EOSINOPHIL # 0.2 TH/MM3 (0-0.4); EOSINOPHIL % 3.3 % (0.0-4.0); HEMATOCRIT 33.2 % (35.0-46.0); HEMO FLAGS DIFF FINAL; LYMPH % 26.1 % (9.0-44.0); LYMPHOCYTE # 1.9 TH/MM3 (1.0-4.8); MEAN CELL VOLUME 90.3 FL (80.0-100.0); MEAN CORPUSCULAR HGB CONC 33.3 % (32.0-36.0); MONO % 8.8 % (0.0-8.0); NEUT % 61.3 % (16.0-70.0); PLATELET COUNT 174 TH/MM3 (150-450); RED BLOOD COUNT 3.68 MIL/MM3 (4.00-5.30); RED CELL DISTRIBUTION WIDTH 13.9 % (11.6-17.2); WHITE BLOOD COUNT 7.2 TH/MM3 (4.0-11.0)
[2017-05-16 13:01] LABS: HEMOGLOBIN A1b 2.7 %; HEMOGLOBIN Ao 79.2 %; HEMOGLOBIN LA1C 2.7 %; HEMOGLOBIN P3 4.6 %
[2017-05-16] MEDS ORDERED: HEPARIN SODIUM - SQ 10,000 UNITS/ML VIAL SQ SCH (14:00)
--- NOTE | 2017-05-16 14:22 | RADRPT ---
EXAM DATE/TIME: 05/16/2017 13:13 [facility] COMPARISON: US CAROTID ARTERIES, November 07, 2016, 17:32. EXTERNAL COMPARISON : [facility], CTA CAROTID ARTERIES W 3D PROCESSING, January 15, 2017 INDICATIONS : Stenosis. MEDICAL HISTORY : Myocardial infarction. Hypercholesterolemia. Thyroid disease. A.FIB. Anticogulant therapy. Hyperten liz. GERD. Hiatal hernia. Kidnet stones. Arthitis. Osteoporosis. SURGICAL HISTORY : Tubal ligation. Thyroidectomy. Carotid endarterectomy. Pacemaker placement. Spinal surgery. Cardiac c ath. Coronary stent. ENCOUNTER: Initial ACUITY: 1 day PAIN SCORE: 0/10 LOCATION: Bilateral neck PEAK SYSTOLIC VELOCITIES (cm/sec): ICA/CCA RATIO: Right: 1.1 Left: 1.1 ICA: Right: 144 Left: 108 CCA: Right: 136 Left: 98 ECA: Right: 112 Left: 73 VERTEBRAL: Right: 75 antegrade Left: 79 antegrade Elevated flow velocities and ICA/CCA ratios have been found to correlate with increased degrees of vessel stenosis, calculated as percentage of diameter relative to a normal segment of distal ICA/CCA FINDINGS: RIGHT CAROTID: There is no evidence for a hemodynamically significant carotid stenosis. Minimal intimal hyperplasia is present with moderate scattered calcific plaque. LEFT CAROTID: There is no evidence for a hemodynamically significant carotid stenosis. Minimal intimal hyperplasia is present with mild to moderate scattered calcific plaque. VERTEBRAL ARTERIES: Flow is antegrade in both vertebral arteries. MISCELLANEOUS: There are no ancillary masses or adenopathy. CONCLUSION: Negative examination for a hemodynamically significant carotid stenosis. Mild to moderate calcific p laque bilaterally. Sam Kaufman MD FACR. Sam Kaufman MD FACR on May 16, 2017 at 14:19 Board Certified Radiologist. This report was verified electronically.
[2017-05-16] MEDS ORDERED: ATORVASTATIN 80 MG TAB PO SCH (21:00)
[2017-05-16] MEDS ORDERED: INSULIN DETEMIR 100 UNITS/ML VIAL SQ SCH (21:00)
[2017-05-16] MEDS ORDERED: PANTOPRAZOLE SOD 20 MG DELAYED RELEASE TAB PO SCH (21:00)
[2017-05-17 03:24] VITALS: BP 115/52; PULSE 60; RESP 18; TEMP 98.5; O2SAT 95
[2017-05-17 04:08] VITALS: PULSE 60
[2017-05-17] MEDS: LEVOTHYROXINE SODIUM 88 MCG TAB PO SCH (06:48)
[2017-05-17] MEDS: HEPARIN SODIUM - SQ 10,000 UNITS/ML VIAL SQ SCH ×2 (06:50→15:08)
[2017-05-17] MEDS: INSULIN ASPART SUPPLEMENTAL SCALE SQ SCH ×2 (06:51→12:05)
[2017-05-17 07:35] LABS: BICARBONATE 27.9 MEQ/L (21.0-32.0); POTASSIUM 3.8 MEQ/L (3.5-5.1)
[2017-05-17 07:58] VITALS: BP_SYST 159; BP_SYST 161; BP_SYST 166; BP_DIAS 54; BP_DIAS 63; BP_DIAS 65; PULSE 60; RESP 20; TEMP 98.6; O2SAT 94
[2017-05-17] MEDS: PRASUGREL 10 MG TAB PO SCH (08:24)
[2017-05-17] MEDS: CARVEDILOL 6.25 MG TAB PO SCH (08:24)
[2017-05-17] MEDS: LISINOPRIL 5 MG TAB PO SCH (08:24)
[2017-05-17] MEDS: FAMOTIDINE 20 MG TAB PO SCH (08:25)
[2017-05-17] MEDS: SODIUM CHLORIDE 0.9% FLUSH 10 ML FLUSH IV FLUSH SCH (08:25)
[2017-05-17] MEDS: ISOSORBIDE MONONITRATE 60 MG TAB PO SCH (08:25)
[2017-05-17] MEDS: MAGNESIUM OXIDE 400 MG TAB PO SCH (08:25)
--- NOTE | 2017-05-17 08:28 | HHI.PR ---
Subjective Remarks Follow-up for dizziness. The patient denies any further dizziness overnight. She is been ambulating with no lightheadedness or dizziness. She denies any chest pain or shortness of breath. She is eating well. Denies any lower extremity swelling. She does have a history of congestive heart therapy, but doesn't have any bowel problems that she knows about. Her office executive, Dr. Hogue, does follow-up routine echocardiograms, she states is been probably about 6 months since she had an echocardiogram and is due for another one. Objective Vitals Vital Signs Date Time Temp Pulse Resp B/P Pulse Ox O2 Delivery O2 Flow Rate FiO2 05/17/17 07:58 98.6 60 20 159/63 94 161/54 166/65 05/17/17 04:08 60 05/17/17 03:24 98.5 60 18 115/52 95 05/16/17 23:42 98.8 60 16 128/61 91 05/16/17 20:04 74 05/16/17 19:07 98.3 61 18 146/68 96 05/16/17 15:59 98.2 60 18 141/61 97 05/16/17 10:40 97.8 60 12 111/55 95 121/42 101/51 Result Diagram: 05/16/17 1130 05/17/17 0637 Imaging Last Impressions Carotid Artery Ultrasound 05/16/17 0000 Signed Impressions: Service Date/Time: Tuesday, May 16, 2017 13:13 - CONCLUSION: Negative examination for a hemodynamically significant carotid stenosis. Mild to moderate calcific plaque bilaterally. Sam Kaufman MD Chest X-Ray 05/15/17 1730 Signed Impressions: Service Date/Time: Monday, May 15, 2017 17:43 - CONCLUSION: 1. Minimal basilar atelectasis. Pacer leads unchanged. Daniel Culver MD Objective Remarks GENERAL: Well-developed well-nourished. In no acute distress. SKIN: Warm and dry. No lesions noted. HEENT: Normocephalic. Pupils equal and round. Mucous membranes pink and moist. CARDIOVASCULAR: Regular rate and rhythm. Systolic murmur appreciated. RESPIRATORY: No accessory muscle use. Clear to auscultation. Breath sounds equal bilaterally. GASTROINTESTINAL: Abdomen soft, non-tender, nondistended. Bowel sounds x4. MUSCULOSKELETAL: No obvious deformities. No clubbing or cyanosis. No edema. NEUROLOGICAL: Awake and alert. No focal neurological deficits. Moves upper and lower extremities spontaneously. Normal speech. PSYCHIATRIC: Appropriate mood and affect; insight and judgment normal. A/P Assessment and Plan 67-year-old female with a past history of HTN, DM, CAD, CHF, A. fib, CKD, hypothyroidism who presented with symptoms of room spinning dizziness Vertigo: Cannot perform MRIs due to cochlear implant and pacemaker; cannot perform CTAs due to renal function. Patient does have carotid artery disease, which is being monitored by Dr. Hogue. Carotid ultrasound with mild to moderate bilateral plaque, but no hemodynamically significant stenosis. Continue meclizine as needed. Echocardiogram ordered. Non-orthostatic. PT consulted, no restrictions. Diabetes mellitus with hypoglycemia: Patient was recently started on insulin one month ago. She reports low blood sugar readings at home, could contribute to dizziness. Hemoglobin A1c 9.2. Stop glyburide. Change preprandial scheduled insulin to sliding scale. Continue baseline insulin. Monitor. Mild rhabdomyolysis: CPK increased to 667. Unclear etiology. Given gentle IVF and CPK improved to normal limits. CKD stage 3/4: Patient with recent admission for FAIZAN. Bumex was held. Given IVF. Creatinine continues to improve, stable at 1.72 currently. Other chronic medical conditions include HTN, asthma, GERD, HLD, anemia, CHF, CAD, hypothyroidism: Stable at this time and will continue home medications as indicated. DVT prophylaxis: Heparin. Discharge Planning Follow up results of echocardiogram. If no new significant echo changes from previous, discharge planning later today. 1500 and echocardiogram with improved EF from previous and no significant valvulopathy. Results and plan of care discussed with the patient. Patient is happy to be discharged home today. Cj Hunt May 17, 2017 08:28
[2017-05-17] MEDS ORDERED: BUME1TAB PO (08:31)
[2017-05-17] MEDS ORDERED: MECL1TAB42 PO (08:31)
[2017-05-17] MEDS ORDERED: NOVOLOGSS SQ (08:31)
[2017-05-17 11:21] VITALS: BP 105/53; PULSE 60; RESP 24; TEMP 98.5; O2SAT 92
--- NOTE | 2017-05-17 15:15 | ECHRPT ---
Indication: lvef, valvular structures, syncope CONCLUSIONS Mildly dilated left ventricle. Wall thickness is normal. Global hypokinesis and possibly akinesis of the distal septum. The anterior wall is not well visual ized. Estimated ejection fraction is 35%. The left atrial size is mildly dilated. Aortic valve sclerosis is present. Mild aortic valve regurgitation. Trace to mild mitral valve regurgitation. The estimated pulmonary arterial pressure is 29 mmHg. Trace tricuspid regurgitation. BP: 100 / 49 HR: 59 Rhythm: Sinus MEASUREMENTS (Male / Female) Normal Values Technical Quality:Good 2D ECHO LV Diastolic Diameter PLAX 5.0 cm 4.2 - 5.9 / 3.9 - 5.3 cm LV Systolic Diameter PLAX 4.5 cm IVS Diastolic Thickness 1.0 cm 0.6 - 1.0 / 0.6 - 0.9 cm LVPW Diastolic Thickness 0.9 cm 0.6 - 1.0 / 0.6 - 0.9 cm LV Relative Wall Thickness 0.4 RV Internal Dim ED PLAX 2.3 cm LA Systolic Diameter LX 3.7 cm 3.0 - 4.0 / 2.7 - 3.8 cm DOPPLER AV Peak Velocity 200.0 cm/s AV Peak Gradient 16.0 mmHg AV Mean Gradient 9.0 mmHg AV Velocity Time Integral 58.2 cm LVOT Peak Velocity 73.7 cm/s LVOT Peak Gradient 2.2 mmHg LVOT Velocity Time Integral 20.2 cm MV Peak Velocity 109.0 cm/s MV Peak Gradient 4.8 mmHg MV Mean Velocity 68.2 cm/s MV Mean Gradient 2.0 mmHg MR Peak Velocity 470.0 cm/s MR Peak Gradient 88.4 mmHg Mitral E Point Velocity 53.3 cm/s Mitral A Point Velocity 85.4 cm/s Mitral E to A Ratio 0.6 LV E' Lateral Velocity 5.5 cm/s Mitral E to LV E' Lateral Ratio 9.8 LV E' Septal Velocity 4.6 cm/s Mitral E to LV E' Septal Ratio 11.6 TR Peak Velocity 247.0 cm/s TR Peak Gradient 24.4 mmHg FINDINGS LEFT VENTRICLE Mildly dilated left ventricle. Wall thickness is normal. Global hypokinesis and possibly akinesis of the distal septum. The anterior wall is not well visual ized. Estimated ejection fraction is 35%. RIGHT VENTRICLE A pacemaker wire is noted. LEFT ATRIUM The left atrial size is mildly dilated. RIGHT ATRIUM The right atrial size is normal. ATRIAL SEPTUM Thickened atrial septum is noted with morphological features most consistent with a lipomatous atria l septum. AORTA The aortic root and proximal ascending aorta are normal in size on limited imaging. MITRAL VALVE Trace to mild mitral valve regurgitation. Mitral annular calcification is present. AORTIC VALVE Aortic valve sclerosis is present. Mild aortic valve regurgitation. TRICUSPID VALVE The estimated pulmonary arterial pressure is 29 mmHg. Trace tricuspid regurgitation. PULMONARY VALVE The pulmonary valve is not well visualized. VESSELS The inferior vena cava is normal in size. PERICARDIUM No pericardial effusion. Solomon Avina MD (Electronically Signed) Final Date:17 May 2017 15:14
== END 2017-05-17 17:04 | disposition home or self-care (01) ==
LOC: NEPC 17:15 → NEDA 18:44 → NEPFCDU 21:06
PROVIDERS: ADMIT Family Medicine; ATTEND Family Medicine
DX: R42 Dizziness and giddiness (principal); R07.9 Chest pain, unspecified; I25.10 Atherosclerotic heart disease of native coronary artery without angina pectoris; I50.9 Heart failure, unspecified; I48.91 Unspecified atrial fibrillation; Z79.01 Long term (current) use of anticoagulants; I13.0 Hypertensive heart and chronic kidney disease with heart failure and stage 1 through stage 4 chronic kidney disease, or unspecified chronic kidney disease; N18.9 Chronic kidney disease, unspecified; E11.22 Type 2 diabetes mellitus with diabetic chronic kidney disease; Z79.84 Long term (current) use of oral hypoglycemic drugs; Z79.4 Long term (current) use of insulin; E03.9 Hypothyroidism, unspecified; K21.9 Gastro-esophageal reflux disease without esophagitis; Z95.0 Presence of cardiac pacemaker; Z98.61 Coronary angioplasty status; E11.649 Type 2 diabetes mellitus with hypoglycemia without coma; R94.31 Abnormal electrocardiogram [ECG] [EKG]; M62.82 Rhabdomyolysis; D64.9 Anemia, unspecified; J45.909 Unspecified asthma, uncomplicated; E78.5 Hyperlipidemia, unspecified; Z79.899 Other long term (current) drug therapy
CPT/HCPCS: 71010; 80048; 82550; 82552; 82948; 83036; 83735; 84484; 85025; 85610; 85730; 93005; 93306; 93880; 96361; 96374; 97162; 99285; G0378; G8987; G8988; J1644; J1815; J2405; J7030; J7040

== ENCOUNTER → 2017-05-31 | Outpatient (CLI) | payer MEDICARE, MEDICAID ==
[~2017-05-31] MED LIST changes: -CALC0.5C6 PO; -GLYB5TAB3 PO; +MECL1TAB42 PO; -NOVOINJ3 SQ; +NOVOLOGSS SQ; -TUMS500C PO; -VENTAER INH
[2017-05-31 07:58] LABS: ALT (GPT) 23 U/L (10-53); ANION GAP 11 MEQ/L (5-15); AST (GOT) 15 U/L (15-37); BICARBONATE 30.4 MEQ/L (21.0-32.0); BLOOD UREA NITROGEN 26 MG/DL (7-18); CHLORIDE 98 MEQ/L (98-107); GLOMERULAR FILTRATION RATE 28 ML/MIN (>89); GLUCOSE,FASTING 246 MG/DL (74-99); POTASSIUM 3.5 MEQ/L (3.5-5.1); SODIUM (NA) 139 MEQ/L (136-145)
[2017-05-31 08:08] LABS: ALKALINE PHOSPHATASE 94 U/L (45-117); FREE T3 1.91 PG/ML (2.18-3.98); FREE T4 1.19 NG/DL (0.76-1.46); TOTAL BILIRUBIN ADULT 0.4 MG/DL (0.2-1.0)
[2017-05-31 18:31] LABS: HEMOGLOBIN A1b 2.6 %; HEMOGLOBIN Ao 78.8 %; HEMOGLOBIN LA1C 3.3 %; HEMOGLOBIN P3 6.8 %
== END ==
LOC: CLAB 07:07
PROVIDERS: ATTEND Nurse Practitioner Family
DX: E11.65 Type 2 diabetes mellitus with hyperglycemia (principal); E03.9 Hypothyroidism, unspecified
CPT/HCPCS: 36415; 80053; 83036; 84439; 84443; 84481

== ENCOUNTER → 2017-08-15 | Outpatient (CLI) | payer MEDICARE, MEDICAID ==
[2017-08-15 09:52] LABS: BASOPHIL # 0.1 TH/MM3 (0-0.2); BASOPHIL % 0.8 % (0.0-2.0); EOSINOPHIL # 0.3 TH/MM3 (0-0.4); EOSINOPHIL % 3.9 % (0.0-4.0); HEMATOCRIT 35.2 % (35.0-46.0); HEMO FLAGS DIFF FINAL; LYMPH % 25.9 % (9.0-44.0); LYMPHOCYTE # 1.7 TH/MM3 (1.0-4.8); MEAN CELL VOLUME 92.3 FL (80.0-100.0); MEAN CORPUSCULAR HEMOGLOBIN 30.9 PG (27.0-34.0); MEAN CORPUSCULAR HGB CONC 33.5 % (32.0-36.0); MONO % 9.8 % (0.0-8.0); NEUT % 59.6 % (16.0-70.0); PLATELET COUNT 170 TH/MM3 (150-450); RED BLOOD COUNT 3.81 MIL/MM3 (4.00-5.30); RED CELL DISTRIBUTION WIDTH 14.2 % (11.6-17.2); WHITE BLOOD COUNT 6.7 TH/MM3 (4.0-11.0)
[2017-08-15 10:08] LABS: BICARBONATE 27.5 MEQ/L (21.0-32.0); MAGNESIUM 1.5 MG/DL (1.5-2.5); POTASSIUM 3.8 MEQ/L (3.5-5.1)
[2017-08-15 10:27] LABS: MICRO ALBUMIN RANDOM URINE RAW 7.3 MG/L (0.0-30.0)
== END ==
LOC: CLAB 08:52
PROVIDERS: ATTEND Internal Medicine Nephrology
DX: N18.4 Chronic kidney disease, stage 4 (severe) (principal); I10 Essential (primary) hypertension; E83.51 Hypocalcemia; K21.9 Gastro-esophageal reflux disease without esophagitis
CPT/HCPCS: 36415; 80069; 82043; 82306; 82330; 83735; 85025

== ENCOUNTER → 2017-09-27 | Outpatient (CLI) | payer MEDICARE, MEDICAID ==
[~2017-09-27] MED LIST changes: -ATOR1TAB18 PO; +ATOR80TA45 PO; +CALC12502 PO; -CALC500T35 PO; -OMEP20TA PO; +OMEP20TA93 PO
[2017-09-27 11:30] LABS: ANION GAP 9 MEQ/L (5-15)
[2017-09-27 11:39] LABS: ALKALINE PHOSPHATASE 83 U/L (45-117); ALT (GPT) 25 U/L (10-53); AST (GOT) 20 U/L (15-37); BICARBONATE 29.3 MEQ/L (21.0-32.0); BLOOD UREA NITROGEN 26 MG/DL (7-18); CHLORIDE 101 MEQ/L (98-107); FREE T3 2.19 PG/ML (2.18-3.98); FREE T4 1.18 NG/DL (0.76-1.46); GLOMERULAR FILTRATION RATE 32 ML/MIN (>89); GLUCOSE,FASTING 78 MG/DL (74-99); POTASSIUM 4.2 MEQ/L (3.5-5.1); SODIUM (NA) 139 MEQ/L (136-145); TOTAL BILIRUBIN ADULT 0.4 MG/DL (0.2-1.0)
[2017-09-27 16:03] LABS: HEMOGLOBIN A1b 1.1 %; HEMOGLOBIN Ao 81.2 %; HEMOGLOBIN F 1.1 %; HEMOGLOBIN LA1C 2.5 %; HEMOGLOBIN P3 6.2 %
== END ==
LOC: CLAB 10:17
PROVIDERS: ATTEND Family Medicine
DX: E11.65 Type 2 diabetes mellitus with hyperglycemia (principal); E03.9 Hypothyroidism, unspecified
CPT/HCPCS: 36415; 80053; 83036; 84439; 84443; 84481

== ENCOUNTER → 2017-10-17 | Outpatient (CLI) | payer MEDICARE, MEDICAID ==
[2017-10-17 11:56] LABS: BICARBONATE 26.9 MEQ/L (21.0-32.0); POTASSIUM 4.1 MEQ/L (3.5-5.1)
== END ==
LOC: CLAB 08:45
PROVIDERS: ATTEND Family Medicine
DX: E83.51 Hypocalcemia (principal)
CPT/HCPCS: 36415; 80048

== ENCOUNTER → 2017-11-26 | Outpatient (CLI) | payer MEDICARE, MEDICAID ==
[2017-11-26 11:21] LABS: AUTOMATED NEUTROPHIL # 5.7 TH/MM3 (1.8-7.7); BASOPHIL % 0.5 % (0.0-2.0); EOSINOPHIL # 0.2 TH/MM3 (0-0.4); EOSINOPHIL % 2.5 % (0.0-4.0); HEMATOCRIT 38.8 % (35.0-46.0); HEMOGLOBIN 13.1 GM/DL (11.6-15.3); LYMPH % 22.5 % (9.0-44.0); LYMPHOCYTE # 1.9 TH/MM3 (1.0-4.8); MEAN CELL VOLUME 89.8 FL (80.0-100.0); MEAN CORPUSCULAR HEMOGLOBIN 30.2 PG (27.0-34.0); MEAN CORPUSCULAR HGB CONC 33.6 % (32.0-36.0); MEAN PLATELET VOLUME 10.7 FL (7.0-11.0); MONO % 8.4 % (0.0-8.0); MONOCYTE # 0.7 TH/MM3 (0-0.9); NEUT % 66.1 % (16.0-70.0); PLATELET COUNT 177 TH/MM3 (150-450); RED BLOOD COUNT 4.32 MIL/MM3 (4.00-5.30); RED CELL DISTRIBUTION WIDTH 15.6 % (11.6-17.2); WHITE BLOOD COUNT 8.6 TH/MM3 (4.0-11.0)
[2017-11-26 11:48] LABS: ALBUMIN 3.9 GM/DL (3.4-5.0); BICARBONATE 30.8 MEQ/L (21.0-32.0); CREATININE 1.58 MG/DL (0.50-1.00); PHOSPHORUS 4.3 MG/DL (2.5-4.9)
== END ==
LOC: CLAB 10:36
PROVIDERS: ATTEND Internal Medicine Nephrology
DX: I12.9 Hypertensive chronic kidney disease with stage 1 through stage 4 chronic kidney disease, or unspecified chronic kidney disease (principal); N18.4 Chronic kidney disease, stage 4 (severe); E83.51 Hypocalcemia; K21.9 Gastro-esophageal reflux disease without esophagitis
CPT/HCPCS: 36415; 80069; 82043; 82306; 82330; 83735; 85025

== ENCOUNTER → 2018-01-24 | Outpatient (CLI) | payer MEDICARE, MEDICAID ==
[2018-01-24 09:42] LABS: AUTOMATED NEUTROPHIL # 4.6 TH/MM3 (1.8-7.7); BASOPHIL % 0.5 % (0.0-2.0); EOSINOPHIL # 0.2 TH/MM3 (0-0.4); EOSINOPHIL % 2.8 % (0.0-4.0); HEMATOCRIT 39.4 % (35.0-46.0); HEMOGLOBIN 13.2 GM/DL (11.6-15.3); LYMPH % 24.6 % (9.0-44.0); LYMPHOCYTE # 1.8 TH/MM3 (1.0-4.8); MEAN CELL VOLUME 89.8 FL (80.0-100.0); MEAN CORPUSCULAR HEMOGLOBIN 30.1 PG (27.0-34.0); MEAN CORPUSCULAR HGB CONC 33.6 % (32.0-36.0); MEAN PLATELET VOLUME 10.4 FL (7.0-11.0); MONO % 9.9 % (0.0-8.0); MONOCYTE # 0.7 TH/MM3 (0-0.9); NEUT % 62.2 % (16.0-70.0); PLATELET COUNT 160 TH/MM3 (150-450); RED BLOOD COUNT 4.39 MIL/MM3 (4.00-5.30); RED CELL DISTRIBUTION WIDTH 14.2 % (11.6-17.2); WHITE BLOOD COUNT 7.3 TH/MM3 (4.0-11.0)
[2018-01-24 10:12] LABS: ALBUMIN 3.7 GM/DL (3.4-5.0); BICARBONATE 29.7 MEQ/L (21.0-32.0); CALCIUM 7.8 MG/DL (8.5-10.1); CREATININE 1.52 MG/DL (0.50-1.00); MAGNESIUM 1.6 MG/DL (1.5-2.5)
[2018-01-24 10:13] LABS: PHOSPHORUS 4.3 MG/DL (2.5-4.9)
== END ==
LOC: CLAB 09:07
PROVIDERS: ATTEND Internal Medicine Nephrology
DX: I12.9 Hypertensive chronic kidney disease with stage 1 through stage 4 chronic kidney disease, or unspecified chronic kidney disease (principal); N18.4 Chronic kidney disease, stage 4 (severe); E83.51 Hypocalcemia; K21.9 Gastro-esophageal reflux disease without esophagitis
CPT/HCPCS: 36415; 80069; 82306; 82330; 83735; 85025

== ENCOUNTER → 2018-02-13 | Outpatient (CLI) | payer MEDICARE, MEDICAID ==
[2018-02-13 09:47] LABS: ALBUMIN 3.7 GM/DL (3.4-5.0); ALKALINE PHOSPHATASE 79 U/L (45-117); ALT (GPT) 20 U/L (10-53); AST (GOT) 19 U/L (15-37); BICARBONATE 27.5 MEQ/L (21.0-32.0); BLOOD UREA NITROGEN 23 MG/DL (7-18); CALCIUM 7.3 MG/DL (8.5-10.1); CHLORIDE 105 MEQ/L (98-107); CREATININE 1.65 MG/DL (0.50-1.00); GLOMERULAR FILTRATION RATE 31 ML/MIN (>89); GLUCOSE,FASTING 165 MG/DL (74-99); SODIUM (NA) 142 MEQ/L (136-145); TOTAL BILIRUBIN ADULT 0.4 MG/DL (0.2-1.0); TOTAL PROTEIN 7.7 GM/DL (6.4-8.2)
[2018-02-13 11:08] LABS: CALCIUM-PROTEIN CORRECTED 7.1 MG/DL (8.5-10.1)
[2018-02-13 20:43] LABS: HEMOGLOBIN A1C 8.5 % (4.3-6.0)
== END ==
LOC: CLAB 08:58
PROVIDERS: ATTEND Family Medicine
DX: E11.21 Type 2 diabetes mellitus with diabetic nephropathy (principal)
CPT/HCPCS: 36415; 80053; 83036

== ENCOUNTER → 2018-04-17 | Outpatient (CLI) | payer MEDICARE, MEDICAID ==
[2018-04-17 09:37] LABS: ALBUMIN 3.7 GM/DL (3.4-5.0); ALT (GPT) 18 U/L (10-53); AST (GOT) 18 U/L (15-37); BICARBONATE 27.1 MEQ/L (21.0-32.0); BLOOD UREA NITROGEN 22 MG/DL (7-18); CALCIUM 9.2 MG/DL (8.5-10.1); CHLORIDE 103 MEQ/L (98-107); CREATININE 1.84 MG/DL (0.50-1.00); GLOMERULAR FILTRATION RATE 27 ML/MIN (>89); GLUCOSE,FASTING 186 MG/DL (74-99); SODIUM (NA) 140 MEQ/L (136-145)
[2018-04-17 09:38] LABS: ALKALINE PHOSPHATASE 89 U/L (45-117); TOTAL BILIRUBIN ADULT 0.4 MG/DL (0.2-1.0); TOTAL PROTEIN 7.8 GM/DL (6.4-8.2)
== END ==
LOC: CLAB 08:48
PROVIDERS: ATTEND Family Medicine
DX: E83.51 Hypocalcemia (principal)
CPT/HCPCS: 36415; 80053

== ENCOUNTER 2018-06-19 08:18 | Inpatient (IN) ==
--- NOTE | 2018-06-19 12:22 | ED ---
HPI General Chief complaint: Abdominal Pain Stated complaint: Adm pain Time Seen by Provider: 06/19/18 11:48 History of Present Illness HPI narrative: Patient comes to the emergency department complaining of 3 near syncopal episodes that occurred today. Patient reports that she was walking from her bedroom to the kitchen when she started feeling she was going to black out. Patient states that she turned around went back to her bedroom and laid down seem to alleviate her symptoms. Patient reports she has been having intermittent dizziness over the past month and a half intermittent epigastric abdominal pain, abdominal weight gain, and occasional nonbloody/nonbilious vomiting ongoing for 4 months after having her insulin switched. As well as an occasional pinching in her chest over the past several weeks. Denies any actual chest pain, shortness breath, fevers, loss change in bowel or bladder, numbness or tingling anywhere. Related Data Home Medications Medication Instructions Recorded Confirmed albuterol sulfate [Ventolin HFA] 2 puff INHALATION Q8HR 06/19/18 06/19/18 atorvastatin 30 mg PO HS 06/19/18 06/19/18 bumetanide 1 mg PO BID 06/19/18 06/19/18 calcitriol 0.5 mcg PO DAILY 06/19/18 06/19/18 calcium carbonate [Calcium 500] 500 mg PO DAILY 06/19/18 06/19/18 carvedilol [Coreg] 6.25 mg PO BID 06/19/18 06/19/18 cholecalciferol (vitamin D3) 1,000 unit PO DAILY 06/19/18 06/19/18 [Vitamin D3] ferrous sulfate [iron] 325 mg PO DAILY 06/19/18 06/19/18 glyburide 5 mg PO BID 06/19/18 06/19/18 insulin aspart U-100 [Novolog 3 unit SUB-Q TIDAC 06/19/18 06/19/18 Flexpen U-100 Insulin] insulin degludec [Tresiba 10 unit SUB-Q HS 06/19/18 06/19/18 FlexTouch U-100] isosorbide mononitrate 30 mg PO DAILY 06/19/18 06/19/18 levothyroxine 88 mcg PO DAILY 06/19/18 06/19/18 lisinopril 5 mg PO DAILY 06/19/18 06/19/18 magnesium oxide 500 mg PO DAILY 06/19/18 06/19/18 potassium 99 mg PO DAILY 06/19/18 06/19/18 prasugrel [Effient] 10 mg PO DAILY 06/19/18 06/19/18 ranitidine HCl 150 mg PO BID 06/19/18 06/19/18 Allergies Allergy/AdvReac Type Severity Reaction Status Date / Time aspirin Allergy Severe EDEMA, Verified 06/19/18 12:31 NAUSEA gabapentin Allergy Severe THROAT Verified 06/19/18 12:31 CLOSES levofloxacin Allergy Severe PAIN Verified 06/19/18 12:31 meperidine Allergy Severe HEART Verified 06/19/18 12:31 STOPPED penicillin G Allergy Severe Swelling Verified 06/19/18 12:31 PACEMAKER AdvReac Severe NON Uncoded 11/08/16 08:25 CONDITIONAL PACEMAKER Review of Systems ROS: all other systems reviewed are negative PMFSH Social History Social History Second Hand Smoke Exposure: Yes Smoking Status: Current every day smoker Tobacco Type: Cigarettes How Often Do You Have a Drink Containing Alcohol: Never Recent Out of Country Travel within the Last 8 Weeks: No Exam Narrative Exam Narrative: GENERAL: Well-developed, overly nourished, in no acute distress , and non-ill appearing. SKIN: Focused skin assessment warm and dry. HEAD: Atraumatic. Normocephalic. EYES: Pupils equal and round. EOMI. No scleral icterus. No injection or drainage. ENT: No nasal bleeding or discharge. Mucous membranes pink and moist. NECK: Trachea midline. No JVD. Supple. No nuclear rigidity. CARDIOVASCULAR: Regular rate and rhythm. No murmur appreciated. RESPIRATORY: No accessory muscle use. No respiratory distress. Clear to auscultation. Breath sounds equal bilaterally. GASTROINTESTINAL: Abdomen soft, non-tender, nondistended, and no guarding. Hepatic and splenic margins not palpable. Normal bowel sounds x4. No pulsatile mass. MUSCULOSKELETAL: No obvious deformities. No clubbing. No cyanosis. No edema. Full range of motion. NEUROLOGICAL: Awake and alert. No obvious cranial nerve deficits. Motor grossly within normal limits. Normal speech. PSYCHIATRIC: Appropriate mood and affect; insight and judgment normal. Course Consultations Consultation #1: Discussed patient with Dr. Cortez, who is agreeable to admit the patient. Time: 15:20 Initial Documented Vital Signs Temperature 98.1 F 06/19/18 08:20 Pulse Rate 54 L 06/19/18 08:20 Respiratory Rate 16 06/19/18 08:20 Blood Pressure 133/59 L 06/19/18 08:20 Pulse Oximetry 97 06/19/18 08:20 Last Documented Vital Signs Temperature 98.1 F 06/19/18 08:20 Pulse Rate 63 06/19/18 14:32 Respiratory Rate 20 06/19/18 14:32 Blood Pressure 165/70 H 06/19/18 14:32 Pulse Oximetry 98 06/19/18 14:32 Medical Decision Making MDM Narrative Medical decision making narrative: Pacemaker was interrogated shows normal device function. No episodes. No changes. Patient was seen and examined. IV was established patient continues cardiac monitoring. Initial laboratory radiological studies were ordered. Patient was given IV Rocephin for UTI and is gently hydrated with 500 cc IV fluid. Discussed all findings and plan of care with patient, who is agreeable for admission. All questions were answered. Discussed patient with Dr. Mclean, who is in agreement plan of care and disposition. Discussed patient with hospitalist, who is agreeable to admit the patient. Patient remained stable throughout ED course. Differential Diagnosis Differential Diagnosis: Pacemaker malfunction, TIA, metabolic disturbance, orthostatic hypotension, UTI, atypical chest pain, pneumonia Lab Data Lab results reviewed: Yes I reviewed the patient's lab results. Result diagrams: 06/19/18 12:20 06/19/18 12:20 Lab Results 06/19/18 06/19/18 06/19/18 Range/Units 12:20 12:20 12:20 WBC 10.4 (4.0-11.0) th/mm3 RBC 4.54 (4.00-5.30) mil/mm3 Hgb 13.1 (11.6-15.3) gm/dL Hct 39.1 (35.0-46.0) % MCV 86.2 (80.0-100.0) fL MCH 29.0 (27.0-34.0) pg MCHC 33.6 (32.0-36.0) % RDW 15.6 (11.6-17.2) % Plt Count 208 (150-450) th/mm3 MPV 10.7 (7.0-11.0) fL Neut % (Auto) 66.0 (16.0-70.0) % Lymph % (Auto) 23.0 (9.0-44.0) % [place] % (Auto) 8.4 H (0.0-8.0) % Eos % (Auto) 2.0 (0.0-4.0) % Baso % (Auto) 0.6 (0.0-2.0) % Neut # (Auto) 6.9 (1.8-7.7) th/mm3 Lymph # (Auto) 2.4 (1.0-4.8) th/mm3 [place] # (Auto) 0.9 (0.0-0.9) th/mm3 Eos # (Auto) 0.2 (0.0-0.4) th/mm3 Baso # (Auto) 0.1 (0.0-0.2) th/mm3 WBC Differential . Differential Comment Auto diff final PT 9.7 L (9.8-11.6) sec INR 1.0 Ratio APTT 29.5 (24.3-30.1) sec Sodium 136 (136-145) meq/L Potassium 3.6 (3.5-5.1) meq/L Chloride 98 (98-107) meq/L Carbon Dioxide 30.3 (21.0-32.0) meq/L Anion Gap 8 (5-15) meq/L BUN 33 H (7-18) mg/dL Creatinine 3.38 H (0.50-1.00) mg/dL Estimated GFR 13 L (>89) mL/min Random Glucose 93 (74-106) mg/dL Calcium 12.1 H* (8.5-10.1) mg/dL Prot Corrected Calcium 10.8 H (8.5-10.1) mg/dL Magnesium 2.0 (1.5-2.5) mg/dL Total Bilirubin 0.6 (0.2-1.0) mg/dL AST 21 (15-37) U/L ALT 18 (10-53) U/L Alkaline Phosphatase 91 (45-117) U/L Troponin I Less than 0.02 L (0.02-0.05) ng/mL B-Natriuretic Peptide (0-100) pg/mL Total Protein 9.1 H (6.4-8.2) g/dL Albumin 4.1 (3.4-5.0) g/dL Lipase 112 (73-393) U/L Urine Color (Yellw/Straw) Urine Clarity (Clear) Urine pH (5.0-8.5) Ur Specific [place] (1.002-1.035) Urine Protein (Neg-Trace) mg/dL Urine Glucose (UA) (Negative) mg/dL Urine Ketones (Negative) mg/dL Urine Occult Blood (Negative) Urine Nitrate (Negative) Urine Bilirubin (Negative) Urine Urobilinogen (Less than 2) mg/dL Ur Leukocyte Esterase (Negative) Urine RBC (0-3) /hpf Urine WBC (0-5) /hpf Ur Squamous Epith Cells (0-5) /hpf Urine Bacteria (None) /hpf Urine Mucus (Occasional) /lpf Micro UA Comment Urine Culture Comments 06/19/18 06/19/18 Range/Units 12:20 12:40 WBC (4.0-11.0) th/mm3 RBC (4.00-5.30) mil/mm3 Hgb (11.6-15.3) gm/dL Hct (35.0-46.0) % MCV (80.0-100.0) fL MCH (27.0-34.0) pg MCHC (32.0-36.0) % RDW (11.6-17.2) % Plt Count (150-450) th/mm3 MPV (7.0-11.0) fL Neut % (Auto) (16.0-70.0) % Lymph % (Auto) (9.0-44.0) % [place] % (Auto) (0.0-8.0) % Eos % (Auto) (0.0-4.0) % Baso % (Auto) (0.0-2.0) % Neut # (Auto) (1.8-7.7) th/mm3 Lymph # (Auto) (1.0-4.8) th/mm3 [place] # (Auto) (0.0-0.9) th/mm3 Eos # (Auto) (0.0-0.4) th/mm3 Baso # (Auto) (0.0-0.2) th/mm3 WBC Differential Differential Comment PT (9.8-11.6) sec INR Ratio APTT (24.3-30.1) sec Sodium (136-145) meq/L Potassium (3.5-5.1) meq/L Chloride (98-107) meq/L Carbon Dioxide (21.0-32.0) meq/L Anion Gap (5-15) meq/L BUN (7-18) mg/dL Creatinine (0.50-1.00) mg/dL Estimated GFR (>89) mL/min Random Glucose (74-106) mg/dL Calcium (8.5-10.1) mg/dL Prot Corrected Calcium (8.5-10.1) mg/dL Magnesium (1.5-2.5) mg/dL Total Bilirubin (0.2-1.0) mg/dL AST (15-37) U/L ALT (10-53) U/L Alkaline Phosphatase (45-117) U/L Troponin I (0.02-0.05) ng/mL B-Natriuretic Peptide 21 (0-100) pg/mL Total Protein (6.4-8.2) g/dL Albumin (3.4-5.0) g/dL Lipase (73-393) U/L Urine Color Yellow (Yellw/Straw) Urine Clarity Hazy H (Clear) Urine pH 7.0 (5.0-8.5) Ur Specific [place] 1.010 (1.002-1.035) Urine Protein Negative (Neg-Trace) mg/dL Urine Glucose (UA) Negative (Negative) mg/dL Urine Ketones Negative (Negative) mg/dL Urine Occult Blood Negative (Negative) Urine Nitrate Negative (Negative) Urine Bilirubin Negative (Negative) Urine Urobilinogen Less than 2 (Less than 2) mg/dL Ur Leukocyte Esterase Large H (Negative) Urine RBC 2 (0-3) /hpf Urine WBC 82 H (0-5) /hpf Ur Squamous Epith Cells 2 (0-5) /hpf Urine Bacteria Rare H (None) /hpf Urine Mucus Few H (Occasional) /lpf Micro UA Comment Culture indicated Urine Culture Comments Culture indicated Imaging Data Radiologist's impression: Chest X-Ray 06/19/18 12:01 CONCLUSION: 1. No focal infiltrate or pulmonary vascular congestion. 2. Small hiatal hernia. Head CT 06/19/18 12:01 CONCLUSION: 1. Negative noncontrast head CT. Abdomen/Pelvis CT 06/19/18 14:21 CONCLUSION: 1. No acute abnormality to explain the patient's pain. 2. Moderate hiatal hernia. 3. Duodenal diverticulum.. ECG Data Interpretation: EKG reviewed by Dr. Mclean shows paced rhythm with ventricular rate of 62. No STEMI. Discharge Plan Discharge Disposition Patient Disposition: 30 Still Patient Discharge Details Diagnosis: Acute renal failure, Acute UTI, Hypercalcemia Physicians Team ED Provider: Sadia Mclean ED Midlevel Provider: Colin Samuels Primary Care Provider: Hiro Martinez Rxs /Orders / Referrals /Forms Prescriptions: No Action carvedilol [Coreg] 6.25 mg Tablet 6.25 mg PO BID RF: 0 atorvastatin 20 mg Tablet 30 mg PO HS RF: 0 glyburide 5 mg Tablet 5 mg PO BID RF: 0 isosorbide mononitrate 30 mg Tablet Extended Release 24 Hr 30 mg PO DAILY RF: 0 levothyroxine 88 mcg Tablet 88 mcg PO DAILY RF: 0 potassium 99 mg Tablet 99 mg PO DAILY RF: 0 calcium carbonate [Calcium 500] 500 mg calcium (1,250 mg) Tablet 500 mg PO DAILY RF: 0 ferrous sulfate [iron] 325 mg (65 mg iron) Tablet 325 mg PO DAILY RF: 0 calcitriol 0.5 mcg Capsule 0.5 mcg PO DAILY RF: 0 ranitidine HCl 150 mg Tablet 150 mg PO BID RF: 0 magnesium oxide 500 mg Tablet 500 mg PO DAILY RF: 0 bumetanide 1 mg Tablet 1 mg PO BID RF: 0 lisinopril 5 mg Tablet 5 mg PO DAILY RF: 0 albuterol sulfate [Ventolin HFA] 90 mcg/actuation Hfa Aerosol Inhaler 2 puff INHALATION Q8HR RF: 0 insulin aspart U-100 [Novolog Flexpen U-100 Insulin] 100 unit/mL Insulin Pen 3 unit SUB-Q TIDAC RF: 0 cholecalciferol (vitamin D3) [Vitamin D3] 1,000 unit Tablet 1,000 unit PO DAILY RF: 0 prasugrel [Effient] 10 mg Tablet 10 mg PO DAILY RF: 0 insulin degludec [Tresiba FlexTouch U-100] 100 unit/mL (3 mL) Insulin Pen 10 unit SUB-Q HS RF: 0 Discharge Interventions Interventions: Vital Signs Last Done: 06/19/18 14:32 Status ED Status: Admitted Observation Patient
--- NOTE | 2018-06-19 13:13 | XR ---
EXAM DATE: 06/19/2018 1:08 PM EDT AGE/SEX: 68 years / Female INDICATIONS: . Congestive heart failure. Patient complains of nausea,dizziness, bloating, pain in ri bs near xiphoid. CLINICAL DATA: This is the patient's initial encounter. Patient reports that signs and symptoms have been present for 1 week and indicates a pain score of 7/10. MEDICAL/SURGICAL HISTORY: Gastroesophageal reflux disease. Hypertension. Diabetes. Carotid st ent. Thyroidectomy. Pacemaker. COMPARISON: [facility] [place], CHEST SINGLE AP, 05/15/2017. . FINDINGS: The heart is stable. Small hiatal hernia is noted. A left subclavian multilead pacemaker has its tips in the right heart. No pneumothorax is noted. The pulmonary vascular pattern is normal. The lungs ar e clear. CONCLUSION: 1. No focal infiltrate or pulmonary vascular congestion. 2. Small hiatal hernia. Electronically signed by: Kris Diop MD 06/19/2018 1:12 PM EDT
[2018-06-19 13:23] LABS: Bacteria,Urine Rare /hpf; Bilirubin,Urine Negative (Negative); Clarity,Urine Hazy (Clear); Color,Urine Yellow (Yellw/Straw); Glucose,Urine (UA) Negative (Negative); Leukocyte Esterase,Urine Large (Negative); Mucus,Urine Few /lpf (Occasional); Nitrite,Urine Negative (Negative); Squamous Epithelial Cell,Urine 2 /hpf (0-5)
[2018-06-19 13:35] LABS: Baso # (Auto) 0.1 th/mm3 (0.0-0.2); Baso % (Auto) 0.6 % (0.0-2.0); Eos # (Auto) 0.2 th/mm3 (0.0-0.4); Hematocrit 39.1 % (35.0-46.0); Hemoglobin 13.1 gm/dL (11.6-15.3); Lymph # (Auto) 2.4 th/mm3 (1.0-4.8); Mean Corpuscular HGB Conc 33.6 % (32.0-36.0); Mean Corpuscular Volume 86.2 fL (80.0-100.0); Mean Platelet Volume 10.7 fL (7.0-11.0); Mono # (Auto) 0.9 th/mm3 (0.0-0.9); Mono % (Auto) 8.4 % (0.0-8.0); Neut # (Auto) 6.9 th/mm3 (1.8-7.7); Platelet Count 208 th/mm3 (150-450); Red Blood Count 4.54 mil/mm3 (4.00-5.30); Red Cell Distribution Width 15.6 % (11.6-17.2); White Blood Count 10.4 th/mm3 (4.0-11.0)
[2018-06-19 13:47] LABS: Activated Partial Thrombo Time 29.5 sec (24.3-30.1); Prothrombin Time 9.7 sec (9.8-11.6)
[2018-06-19 14:11] LABS: Alanine Aminotransferase 18 U/L (10-53); Albumin 4.1 g/dL (3.4-5.0); Alkaline Phosphatase 91 U/L (45-117); Anion Gap 8 meq/L (5-15); Aspartate Aminotransferase 21 U/L (15-37); Blood Urea Nitrogen 33 mg/dL (7-18); Calcium 12.1 mg/dL (8.5-10.1); Carbon Dioxide 30.3 meq/L (21.0-32.0); Chloride 98 meq/L (98-107); Glomerular Filtration Rate 13 mL/min (>89); Glucose,Random 93 mg/dL (74-106); Lipase 112 U/L (73-393); Sodium 136 meq/L (136-145); Total Protein 9.1 g/dL (6.4-8.2)
[2018-06-19 14:14] LABS: Potassium 3.6 meq/L (3.5-5.1)
--- NOTE | 2018-06-19 14:15 | CT ---
EXAM DATE: 06/19/2018 2:09 PM EDT AGE/SEX: 68 years / Female INDICATIONS: Nausea, vomiting and dizziness. CLINICAL DATA: This is the patient's initial encounter. Patient reports that signs and symptoms have been present for 4 - 6 days and indicates a pain score of 8/10. MEDICAL/SURGICAL HISTORY: Cardiovascular disease. Diabetes. Pacemaker. RADIATION DOSE: 36.25 CTDI (mGy) COMPARISON: [facility] [place], CT BRAIN W/O CONTRAST, 05/10/2017. . TECHNIQUE: CT of the head without contrast. Using automated exposure control and adjustment of the mA and/or kV according to patient size, radiation dose was kept as low as reasonably achievable to ob tain optimal diagnostic quality images. DICOM format image data is available electronically for revi ew and comparison. FINDINGS: Cerebrum: The ventricles are normal for age. No evidence of midline shift, mass lesion, hemorrhage or acute infarction. No extraaxial fluid collections are seen. Posterior Fossa: The cerebellum and brainstem are intact. The 4th ventricle is midline. The cerebe llopontine angle is unremarkable. Extracranial: The visualized portion of the orbits is intact. Skull: The calvaria is intact. No evidence of skull fracture. CONCLUSION: 1. Negative noncontrast head CT. Electronically signed by: Helio Sena MD 06/19/2018 2:14 PM EDT
[2018-06-19] MEDS ORDERED: Sodium Chlor 0.9% Inj 500 ML IV.SIG ONE (14:21)
[2018-06-19] MEDS ORDERED: Bisacodyl 10 MG Supp RECTAL PRN (15:23)
--- NOTE | 2018-06-19 15:32 | CT ---
EXAM DATE: 06/19/2018 3:26 PM EDT AGE/SEX: 68 years / Female INDICATIONS: Upper abdominal pain. Nausea and vomiting. CLINICAL DATA: This is the patient's initial encounter. Patient reports that signs and symptoms have been present for 1 day and indicates a pain score of 4/10. MEDICAL/SURGICAL HISTORY: None. Pacemaker. RADIATION DOSE: 7.35 CTDI (mGy) COMPARISON: [facility] [place], CT ABDOMEN & PELVIS W/O CONTRAST, 05/10/2017. . TECHNIQUE: Multiple contiguous axial images were obtained through the abdomen. Images were obtained using multiple row detector helical technique. Using automated exposure control and adjustment of the mA and/or kV according to patient size, radiation dose was kept as low as reasonably achievable to o btain optimal diagnostic quality images. DICOM format image data is available electronically for rev iew and comparison. FINDINGS: Lower Lungs: A moderate-sized hiatal hernia. The visualized lower lungs are clear. Liver: The liver has a homogeneous density without space-occupying lesion. There is no dilation of th e biliary tree. Spleen: Homogeneous density without enlargement. Pancreas: Unremarkable without mass or calcification. Kidneys: Normal in size and shape. No evidence of mass or hydronephrosis. Adrenal Glands: Unremarkable. Aorta: Heavily calcified atherosclerotic plaque throughout the aorta and inflow vessels. No aneurys mal change.. Bowel/Mesentery: A large duodenal diverticulum arising from the 2nd-3rd portion of the duodenum. Neeraj endix is normal by CT criteria. The bowel loops are grossly unremarkable. The cecum and sigmoid colon have a normal configuration. Abdominal Wall: Intact. Retroperitoneum: No evidence of adenopathy in the retrocrural, para-aortic, or deep pelvic regions. Bladder: Contours are smooth. Reproductive Organs: No abnormal masses or calcifications seen. Inguinal: The inguinal region is unremarkable without evidence of adenopathy. Bony Structures: Unremarkable. CONCLUSION: 1. No acute abnormality to explain the patient's pain. 2. Moderate hiatal hernia. 3. Duodenal diverticulum.. Electronically signed by: Rambo Larsen MD 06/19/2018 3:31 PM EDT
--- NOTE | 2018-06-19 15:50 | ECG ---
Date Performed: 06/19/2018 Time Performed: 12:21:04 PTAGE: 68 years EKG: ELECTRONIC ATRIAL PACEMAKER ELECTRONIC VENTRICULAR PACEMAKER ABNORMAL RHYTHM ECG PREVIOUS TRACING : 05/16/2017 06.07 Since the previous tracing, no significant change noted DOCTOR: Milagro Hogue Interpretating Date/Time 06/19/2018 15:49:36
[2018-06-19] MEDS ORDERED: Dextrose 50% in Water 50 ML Vial IV.PUSH PRN (15:57)
--- NOTE | 2018-06-19 16:50 | P.HP ---
History of Present Illness Service: Hospitalist Primary Care Physician: Hiro Martinez Chief Complaint: Near syncope History of Present Illness: Ms. Lucas is a pleasant 68-year-old female with a history of DM, CAD, cardiomyopathy, hypothyroidism who presents to the emergency department on 2017 due to 2 episodes of near syncope. Patient denies any chest pain, shortness of breath, fever or chills. She reports no leg swelling. She did not have any cough, abdominal pain. However she has noticed increase in her abdominal girth. Patient denies any dysuria, hematuria. No changes in bowel habits. Upon arrival temperature 98.1F pulse 54 blood pressure 133/59 oxygen saturation 97% on room air. CBC largely unremarkable. CMP shows BUN 33, creatinine 3.38 estimated GFR 13, calcium 12.1 corrected calcium 10.8. Magnesium 2.0. Patient follows up with Dr. Skinner and Dr. Hogue. Past medical history: Coronary artery disease, diabetes mellitus, COPD, congestive heart failure, cardiomyopathy, hypothyroidism Past surgical history: Endarterectomy, thyroidectomy, stent placement, AICD placement. Social history: Patient smokes 4 cigarettes a day. Drinks once a year on the . Family history: No family history of cancer, heart disease, Alzheimer's or Parkinson's. - Diagnosis (1) CAD (coronary artery disease) (2) Ischemic cardiomyopathy (3) Acute renal failure (4) Hypercalcemia Review of Systems All other systems reviewed negative except as stated in HPI [facility] - History History Provided By: Patient - Tobacco History Second Hand Smoke Exposure: Yes Tobacco Use In Past 30 Days: Yes Smoking Status: Current every day smoker Tobacco Type: Cigarettes - Alcohol History How Often Do You Have a Drink Containing Alcohol: Never - Travel History Recent Travel Out of the Country Within the Last 8 Weeks: No - Immunization History Tetanus Immunization: <5 Years Medications and Allergies Active Medications: Active Medications Al Hydroxide/Mg Hydroxide (Milk Of Magnesia Liq) 30 ml PO Q12H PRN PRN Reason: Mild Constipation Bisacodyl (Dulcolax Supp) 10 mg RECTAL DAILY PRN PRN Reason: SEVERE CONSITIPATION Dextrose (D50w Vial) 50 ml IV.PUSH UNSCH PRN PRN Reason: PER HYPOGLYCEMIA PROTOCOL Glucagon (Glucagon Inj) 1 mg OTHER PRN PRN PRN Reason: for Hypoglycemia Protocol Heparin Sodium (Porcine) (Heparin Inj) 5,000 units SQ Q12HR [facility] Insulin Aspart (Novolog Insulin Correctional Sugar Inj) 0 unit SQ ACHS [facility]; Protocol Lactulose (Lactulose Liq) 30 ml PO DAILY PRN PRN Reason: SEVERE CONSITIPATION Ondansetron HCl (Zofran Inj) 4 mg IV.PUSH Q6H PRN PRN Reason: NAUSEA OR VOMITING Sennosides (Senokot) 17.2 mg PO Q12H PRN PRN Reason: Moderate Constipation Allergies Allergy/AdvReac Type Severity Reaction Status Date / Time aspirin Allergy Severe EDEMA, Verified 06/19/18 12:31 NAUSEA gabapentin Allergy Severe THROAT Verified 06/19/18 12:31 CLOSES levofloxacin Allergy Severe PAIN Verified 06/19/18 12:31 meperidine Allergy Severe HEART Verified 06/19/18 12:31 STOPPED penicillin G Allergy Severe Swelling Verified 06/19/18 12:31 PACEMAKER AdvReac Severe NON Uncoded 11/08/16 08:25 CONDITIONAL PACEMAKER Home Medications Medication Instructions Recorded Confirmed Type albuterol sulfate [Ventolin HFA] 2 puff INHALATION Q8HR 06/19/18 06/19/18 History atorvastatin 30 mg PO HS 06/19/18 06/19/18 History bumetanide 1 mg PO BID 06/19/18 06/19/18 History calcitriol 0.5 mcg PO DAILY 06/19/18 06/19/18 History calcium carbonate [Calcium 500] 500 mg PO DAILY 06/19/18 06/19/18 History carvedilol [Coreg] 6.25 mg PO BID 06/19/18 06/19/18 History cholecalciferol (vitamin D3) 1,000 unit PO DAILY 06/19/18 06/19/18 History [Vitamin D3] ferrous sulfate [iron] 325 mg PO DAILY 06/19/18 06/19/18 History glyburide 5 mg PO BID 06/19/18 06/19/18 History insulin aspart U-100 [Novolog 3 unit SUB-Q TIDAC 06/19/18 06/19/18 History Flexpen U-100 Insulin] insulin degludec [Tresiba 10 unit SUB-Q HS 06/19/18 06/19/18 History FlexTouch U-100] isosorbide mononitrate 30 mg PO DAILY 06/19/18 06/19/18 History levothyroxine 88 mcg PO DAILY 06/19/18 06/19/18 History lisinopril 5 mg PO DAILY 06/19/18 06/19/18 History magnesium oxide 500 mg PO DAILY 06/19/18 06/19/18 History potassium 99 mg PO DAILY 06/19/18 06/19/18 History prasugrel [Effient] 10 mg PO DAILY 06/19/18 06/19/18 History ranitidine HCl 150 mg PO BID 06/19/18 06/19/18 History Exam Vital signs: Vital Signs 06/19/18 08:20 06/19/18 12:01 06/19/18 14:32 Temperature 98.1 F Pulse Rate 54 L 63 Respiratory Rate 16 20 Blood Pressure 133/59 L 165/70 H Pulse Oximetry 97 98 98 Intake & Output 06/18/18 06/19/18 06/19/18 18:59 06:59 18:59 Weight 70.307 kg Narrative: GENERAL: This is a well-nourished, well-developed patient, in no apparent distress. SKIN: No rashes, ecchymoses or lesions. Warm and dry. HEAD: Atraumatic. Normocephalic. No temporal or scalp tenderness. EYES: Pupils equal round and reactive. No injection or drainage. ENT: Nose without bleeding, purulent drainage or septal hematoma. Airway patent. NECK: Trachea midline. No lymphadenopathy. Supple, nontender, no meningeal signs. CARDIOVASCULAR: Regular rate and rhythm without murmurs, gallops, or rubs. No JVD. RESPIRATORY: Clear to auscultation. Breath sounds equal bilaterally. No wheezes , rales, or rhonchi. GASTROINTESTINAL: Abdomen soft, non-tender, nondistended. No guarding. MUSCULOSKELETAL: Extremities without clubbing, cyanosis, or edema. NEUROLOGICAL: Awake and alert. Cranial nerves II through XII intact. No focal neurological deficits. Normal speech. Results - Labs CBC & Chem 7: 06/19/18 12:20 06/19/18 12:20 Labs: Laboratory Results - last 24 hr 06/19/18 06/19/18 06/19/18 12:20 12:20 12:20 WBC 10.4 RBC 4.54 Hgb 13.1 Hct 39.1 MCV 86.2 MCH 29.0 MCHC 33.6 RDW 15.6 Plt Count 208 MPV 10.7 Neut % (Auto) 66.0 Lymph % (Auto) 23.0 [place] % (Auto) 8.4 H Eos % (Auto) 2.0 Baso % (Auto) 0.6 Neut # (Auto) 6.9 Lymph # (Auto) 2.4 [place] # (Auto) 0.9 Eos # (Auto) 0.2 Baso # (Auto) 0.1 WBC Differential . Differential Comment Auto diff final PT 9.7 L INR 1.0 APTT 29.5 Sodium 136 Potassium 3.6 Chloride 98 Carbon Dioxide 30.3 Anion Gap 8 BUN 33 H Creatinine 3.38 H Estimated GFR 13 L Random Glucose 93 Calcium 12.1 H* Prot Corrected Calcium 10.8 H Magnesium 2.0 Total Bilirubin 0.6 AST 21 ALT 18 Alkaline Phosphatase 91 Troponin I Less than 0.02 L B-Natriuretic Peptide Total Protein 9.1 H Albumin 4.1 Lipase 112 Urine Color Urine Clarity Urine pH Ur Specific [place] Urine Protein Urine Glucose (UA) Urine Ketones Urine Occult Blood Urine Nitrate Urine Bilirubin Urine Urobilinogen Ur Leukocyte Esterase Urine RBC Urine WBC Ur Squamous Epith Cells Urine Bacteria Urine Mucus Micro UA Comment Urine Culture Comments 06/19/18 06/19/18 12:20 12:40 WBC RBC Hgb Hct MCV MCH MCHC RDW Plt Count MPV Neut % (Auto) Lymph % (Auto) [place] % (Auto) Eos % (Auto) Baso % (Auto) Neut # (Auto) Lymph # (Auto) [place] # (Auto) Eos # (Auto) Baso # (Auto) WBC Differential Differential Comment PT INR APTT Sodium Potassium Chloride Carbon Dioxide Anion Gap BUN Creatinine Estimated GFR Random Glucose Calcium Prot Corrected Calcium Magnesium Total Bilirubin AST ALT Alkaline Phosphatase Troponin I B-Natriuretic Peptide 21 Total Protein Albumin Lipase Urine Color Yellow Urine Clarity Hazy H Urine pH 7.0 Ur Specific [place] 1.010 Urine Protein Negative Urine Glucose (UA) Negative Urine Ketones Negative Urine Occult Blood Negative Urine Nitrate Negative Urine Bilirubin Negative Urine Urobilinogen Less than 2 Ur Leukocyte Esterase Large H Urine RBC 2 Urine WBC 82 H Ur Squamous Epith Cells 2 Urine Bacteria Rare H Urine Mucus Few H Micro UA Comment Culture indicated Urine Culture Comments Culture indicated - Imaging Impressions Chest X-Ray 06/19/18 12:01 CONCLUSION: 1. No focal infiltrate or pulmonary vascular congestion. 2. Small hiatal hernia. Head CT 06/19/18 12:01 CONCLUSION: 1. Negative noncontrast head CT. Abdomen/Pelvis CT 06/19/18 14:21 CONCLUSION: 1. No acute abnormality to explain the patient's pain. 2. Moderate hiatal hernia. 3. Duodenal diverticulum.. Caprini VTE Risk Assessment Caprini VTE Risk Assessment: Moderate/High Risk (score >= 2) Caprini Risk Assessment Model: Point Value = 1 Point Value = 2 Point Value = 3 Point Value = 5 Age 41-60 Minor surgery BMI > 25 kg/m2 Swollen legs Varicose veins or History of unexplained or recurrent spontaneous Oral contraceptives or hormone replacement Sepsis (< 1 month) Serious lung disease, including pneumonia (< 1 month) Abnormal pulmonary function Acute myocardial infarction Congestive heart failure (< 1 month) History of inflammatory bowel disease Medical patient at bed rest Age 61-74 Arthroscopic surgery Major open surgery (> 45 min) Laparoscopic surgery (> 45 min) Malignancy Confined to bed (> 72 hours) Immobilizing plaster cast Central venous access Age >= 75 History of VTE Family history of VTE Factor V Leiden Prothrombin 56430L Lupus anticoagulant Anticardiolipin antibodies Elevated serum homocysteine Heparin-induced thrombocytopenia Other congenital or acquired thrombophilia Stroke (< 1 month) Elective arthroplasty Hip, pelvis, or leg fracture Acute spinal cord injury (< 1 month) Prophylaxis Regimen: Total Risk Factor Score Risk Level Prophylaxis Regimen 0-1 Low Early ambulation 2 Moderate Order ONE of the following: *Sequential Compression Device (SCD) *Heparin 5000 units SQ BID 3-4 Higher Order ONE of the following medications: *Heparin 5000 units SQ TID *Enoxaparin/Lovenox 40 mg SQ daily (WT < 150 kg, CrCl > 30 mL/min) *Enoxaparin/Lovenox 30 mg SQ daily (WT < 150 kg, CrCl > 10-29 mL/min) *Enoxaparin/Lovenox 30 mg SQ BID (WT < 150 kg, CrCl > 30 mL/min) AND/OR *Sequential Compression Device (SCD) 5 or more Highest Order ONE of the following medications: *Heparin 5000 units SQ TID (Preferred with Epidurals) *Enoxaparin/Lovenox 40 mg SQ daily (WT < 150 kg, CrCl > 30 mL/min) *Enoxaparin/Lovenox 30 mg SQ daily (WT < 150 kg, CrCl > 10-29 mL/min) *Enoxaparin/Lovenox 30 mg SQ BID (WT < 150 kg, CrCl > 30 mL/min) AND *Sequential Compression Device (SCD) Assessment and Plan - Assessment (1) CAD (coronary artery disease) Code(s): I25.10 - Atherosclerotic heart disease of [place] coronary artery without angina pectoris Status: Acute (2) Ischemic cardiomyopathy Code(s): I25.5 - Ischemic cardiomyopathy Status: Acute (3) Acute renal failure Code(s): N17.9 - Acute kidney failure, unspecified Status: Acute (4) Hypercalcemia Code(s): E83.52 - Hypercalcemia Status: Acute - Plan Ms. Lucas is a pleasant 68-year-old female with a history of diabetes mellitus, coronary artery disease, ischemic cardiomyopathy who presents to the emergency department due to 2 near syncopal episode. Patient denies any chest pain, shortness of breath, fever or chills. She has AICD which did not activate. No dysuria, hematuria. She denies any lower extremity swelling. Near syncope - Etiology undetermined. Will monitor her on Telemetry. AICD was interrogated by [facility]. - Follows up with Dr. Hogue Acute kidney injury CKD stage III - Baseline appears to be around 2.33. Follows up with Dr. Skinner - Creatinine is now 3.38 with GFR 13. - Could be partially due to hypercalcemia. - Will request a nephrology consultation. - Will hold Bumex and Lisinopril for now. Diabetes mellitus - Glucose was 93 on arrival. Will keep patient on sliding scale insulin. If needed, we will add long acting insulin - Patient takes Aspart and Tresiba and Glyburide at home. This combo is concerning for hypoglycemic episodes. - I would argue for discontinuation of Glyburide. CAD Ischemic cardiomyopathy Hx of Carotid artery stenosis Hypothyroidism s/p total thyroidectomy - Continue Prasugrel, Imdur, Coreg, Levothyroxine. - Continue Lipitor. Hold Lisinopril for now. Full code. Heparin SQ. (3) Acute renal failure Qualifiers: Acute renal failure type: unspecified Qualified Code(s): N17.9 - Acute kidney failure, unspecified
[2018-06-19] MEDS: Heparin - SQ 10,000 UNITS/ML Vial SQ SCH (17:10)
--- NOTE | 2018-06-19 17:35 | P.CONNP ---
<Gabriela Mazariegos - Last Filed: 06/19/18 17:19> History of Present Illness Service: Nephrology Consult date: 06/19/18 Primary Care Provider: Hiro Storm Provider: Acute Renal Failure on CKD, Hypercalcemia Chief Complaint: Near syncope History of Present Illness: This is a 68 y/o female with whom we follow outpatient. She has a hx of DM II, HTN, CKD 3, CHF with EF 30%. She also has a hx of total thyroidectomy and total parathyroidectomy, and is maintained on high doses of calcitriol and calcium replacement. She becomes severely hypocalcemic when we lower or stop her replacement. Her creatinine baseline runs 1/5-1.8, GFR 32. The patient reports nausea/vomiting and abdominal bloating since changing insulin from Lantus to Tresiba. She came to the ER for dizziness and near syncopal episodes for one month. She has been vomiting for 5 days. Her creatinine is 3.32 on arrival, serum Ca 12.1, Protein corrected calcium 10.8. On exam she is awake, not in distress. We were consulted for management of renal failure and electrolyte disorders. She is also on Bumex at home. She is a full code. Review of Systems Constitutional: Denies body ache(s) Eyes: Reports floaters Cardiovascular: Denies chest pain Gastrointestinal: Reports nausea, Reports vomiting, Denies abdominal pain, Denies constipation, Denies cramping, Denies excessive passing of gas Musculoskeletal: Denies abnormal walking Neurologic: Reports dizziness, Reports fainting, Denies tingling/numbness/ burning sensations PMFSH - History History Provided By: Patient - Medical History Medical History: Medical History (Last Updated 06/19/18 @ 17:28 by ANGELA Howe) CHF (congestive heart failure) DMII (diabetes mellitus, type 2) GERD (gastroesophageal reflux disease) HTN (hypertension) Iatrogenic hypocalcemia - Surgical History Surgical History: Surgical History (Last Updated 06/19/18 @ 17:28 by ANGELA Howe) History of thyroidectomy, total S/P complete parathyroidectomy - Tobacco History Second Hand Smoke Exposure: Yes Tobacco Use In Past 30 Days: Yes Smoking Status: Current every day smoker Tobacco Type: Cigarettes Cigarettes Per Day: 4 - Alcohol History How Often Do You Have a Drink Containing Alcohol: Never - Travel History Recent Travel Out of the Country Within the Last 8 Weeks: No - Immunization History Tetanus Immunization: <5 Years Medications and Allergies Allergies Allergy/AdvReac Type Severity Reaction Status Date / Time aspirin Allergy Severe EDEMA, Verified 06/19/18 12:31 NAUSEA gabapentin Allergy Severe THROAT Verified 06/19/18 12:31 CLOSES levofloxacin Allergy Severe PAIN Verified 06/19/18 12:31 meperidine Allergy Severe HEART Verified 06/19/18 12:31 STOPPED penicillin G Allergy Severe Swelling Verified 06/19/18 12:31 PACEMAKER AdvReac Severe NON Uncoded 11/08/16 08:25 CONDITIONAL PACEMAKER Home Medications Medication Instructions Recorded Confirmed Type albuterol sulfate [Ventolin HFA] 2 puff INHALATION Q8HR 06/19/18 06/19/18 History atorvastatin 30 mg PO HS 06/19/18 06/19/18 History bumetanide 1 mg PO BID 06/19/18 06/19/18 History calcitriol 0.5 mcg PO DAILY 06/19/18 06/19/18 History calcium carbonate [Calcium 500] 500 mg PO DAILY 06/19/18 06/19/18 History carvedilol [Coreg] 6.25 mg PO BID 06/19/18 06/19/18 History cholecalciferol (vitamin D3) 1,000 unit PO DAILY 06/19/18 06/19/18 History [Vitamin D3] ferrous sulfate [iron] 325 mg PO DAILY 06/19/18 06/19/18 History glyburide 5 mg PO BID 06/19/18 06/19/18 History insulin aspart U-100 [Novolog 3 unit SUB-Q TIDAC 06/19/18 06/19/18 History Flexpen U-100 Insulin] insulin degludec [Tresiba 10 unit SUB-Q HS 06/19/18 06/19/18 History FlexTouch U-100] isosorbide mononitrate 30 mg PO DAILY 06/19/18 06/19/18 History levothyroxine 88 mcg PO DAILY 06/19/18 06/19/18 History lisinopril 5 mg PO DAILY 06/19/18 06/19/18 History magnesium oxide 500 mg PO DAILY 06/19/18 06/19/18 History potassium 99 mg PO DAILY 06/19/18 06/19/18 History prasugrel [Effient] 10 mg PO DAILY 06/19/18 06/19/18 History ranitidine HCl 150 mg PO BID 06/19/18 06/19/18 History Active Medications: Active Medications Al Hydroxide/Mg Hydroxide (Milk Of Magnesia Liq) 30 ml PO Q12H PRN PRN Reason: Mild Constipation Atorvastatin Calcium (Lipitor) 30 mg PO HS [facility] Bisacodyl (Dulcolax Supp) 10 mg RECTAL DAILY PRN PRN Reason: SEVERE CONSITIPATION Carvedilol (Coreg) 6.25 mg PO BID [facility] Dextrose (D50w Vial) 50 ml IV.PUSH UNSCH PRN PRN Reason: PER HYPOGLYCEMIA PROTOCOL Glucagon (Glucagon Inj) 1 mg OTHER PRN PRN PRN Reason: for Hypoglycemia Protocol Heparin Sodium (Porcine) (Heparin Inj) 5,000 units SQ Q12HR [facility] Last Admin: 06/19/18 17:10 Dose: 5,000 units Sodium Chloride (1/2 Normal Saline Inj) 1,000 mls @ 100 mls/hr IV.CONT .Q10H [facility] Insulin Aspart (Novolog Insulin Correctional Sugar Inj) 0 unit SQ ACHS [facility]; Protocol Isosorbide Mononitrate (Imdur) 30 mg PO DAILY [facility] Lactulose (Lactulose Liq) 30 ml PO DAILY PRN PRN Reason: SEVERE CONSITIPATION Levothyroxine Sodium (Synthroid) 88 mcg PO DAILY [facility] Non-Formulary Medication (Albuterol Sulfate) 2 puff INHALATION Q8HR [facility] Non-Formulary Medication (Ranitidine Hcl [Ranitidine Hcl]) 150 mg PO BID [facility] Ondansetron HCl (Zofran Inj) 4 mg IV.PUSH Q6H PRN PRN Reason: NAUSEA OR VOMITING Prasugrel (Effient) 10 mg PO DAILY [facility] Sennosides (Senokot) 17.2 mg PO Q12H PRN PRN Reason: Moderate Constipation Exam Vital signs: Vital Signs 06/19/18 08:20 06/19/18 12:01 06/19/18 14:32 Temperature 98.1 F Pulse Rate 54 L 63 Respiratory Rate 16 20 Blood Pressure 133/59 L 165/70 H Pulse Oximetry 97 98 98 Intake & Output 06/18/18 06/19/18 06/19/18 18:59 06:59 18:59 Weight 70.307 kg - Constitutional no acute distress, chronically ill appearing, disheveled - Routine HEENT Exam Head: Present: normocephalic - Routine Neck Exam Present: supple, full ROM - Routine Respiratory Exam Present: CTA bilaterally. Absent: accessory muscle use - Routine Cardiovascular Exam Present: RRR, S1, S2 - Routine Abdominal Exam Present: soft, normoactive bowel sounds - Routine Extremities Exam Present: full ROM, pulses intact. Absent: cyanosis, edema - Routine Skin Exam Present: intact, dry, warm - Routine Neurological Exam Present: alert, oriented X3, CN II-XII intact Results - Lab Results 06/19/18 12:20 06/19/18 12:20 Most recent lab results Calcium 12.1 mg/dL (8.5-10.1) H* 06/19/18 12:20 Magnesium 2.0 mg/dL (1.5-2.5) 06/19/18 12:20 - Image Kidney/bladder ultrasound: report reviewed Assessment and Plan - Assessment (1) Acute renal failure Code(s): N17.9 - Acute kidney failure, unspecified Status: Acute Plan: She has a hx of CKD 3, baseline 1.5-1.8, GFR 32 FAIZAN thought to be due to prerenal azotemia due to nausea/vomiting Monitor renal function and urine output Start 1/2 NS @ 100 cc/hr Repeat labs Obtain urine electrolytes Renal US reviewed, normal Avoid nephrotoxic agents. Hold home Bumex. (2) Hypercalcemia Code(s): E83.52 - Hypercalcemia Status: Acute Plan: Hx of total parathyroidectomy, requires daily replacement Hypercalcemia due to combination of dehydration/renal failure and over supplementation Hold calcitriol and calcium supplements Start 1/2 NS follow labs (3) Dizziness Code(s): R42 - Dizziness and giddiness Status: Acute Plan: Possibly due to dehydration Monitor for symptom improvement with IVF <Delgado Carey - Last Filed: 06/19/18 17:54> History of Present Illness Primary Care Provider: Hiro Martinez [facility] - Medical History Medical History: Medical History (Last Updated 06/19/18 @ 17:28 by ANGELA Howe) CHF (congestive heart failure) DMII (diabetes mellitus, type 2) GERD (gastroesophageal reflux disease) HTN (hypertension) Iatrogenic hypocalcemia - Surgical History Surgical History: Surgical History (Last Updated 06/19/18 @ 17:28 by Gabriela Mazariegos, [facility]) History of thyroidectomy, total S/P complete parathyroidectomy Medications and Allergies Active Medications: Active Medications Al Hydroxide/Mg Hydroxide (Milk Of Magnesia Liq) 30 ml PO Q12H PRN PRN Reason: Mild Constipation Atorvastatin Calcium (Lipitor) 30 mg PO HS [facility] Bisacodyl (Dulcolax Supp) 10 mg RECTAL DAILY PRN PRN Reason: SEVERE CONSITIPATION Carvedilol (Coreg) 6.25 mg PO BID [facility] Dextrose (D50w Vial) 50 ml IV.PUSH UNSCH PRN PRN Reason: PER HYPOGLYCEMIA PROTOCOL Famotidine (Pepcid) 10 mg PO BID [facility] Glucagon (Glucagon Inj) 1 mg OTHER PRN PRN PRN Reason: for Hypoglycemia Protocol Heparin Sodium (Porcine) (Heparin Inj) 5,000 units SQ Q12HR [facility] Last Admin: 06/19/18 17:10 Dose: 5,000 units Sodium Chloride (1/2 Normal Saline Inj) 1,000 mls @ 100 mls/hr IV.CONT .Q10H [facility] Last Admin: 06/19/18 17:49 Dose: 100 mls/hr Insulin Aspart (Novolog Insulin Correctional Sugar Inj) 0 unit SQ ACHS [facility]; Protocol Isosorbide Mononitrate (Imdur) 30 mg PO DAILY [facility] Lactulose (Lactulose Liq) 30 ml PO DAILY PRN PRN Reason: SEVERE CONSITIPATION Levothyroxine Sodium (Synthroid) 88 mcg PO DAILY [facility] Miscellaneous (Pill Splitter) 1 each OTHER UNSCH PRN PRN Reason: PILL SPLITTER Non-Formulary Medication (Albuterol Sulfate) 2 puff INHALATION Q8HR [facility] Ondansetron HCl (Zofran Inj) 4 mg IV.PUSH Q6H PRN PRN Reason: NAUSEA OR VOMITING Prasugrel (Effient) 10 mg PO DAILY [facility] Sennosides (Senokot) 17.2 mg PO Q12H PRN PRN Reason: Moderate Constipation Exam Vital signs: Vital Signs 06/19/18 08:20 06/19/18 12:01 06/19/18 14:32 Temperature 98.1 F Pulse Rate 54 L 63 Respiratory Rate 16 20 Blood Pressure 133/59 L 165/70 H Pulse Oximetry 97 98 98 Intake & Output 06/18/18 06/19/18 06/19/18 18:59 06:59 18:59 Weight 70.307 kg Results - Lab Results 06/19/18 12:20 06/19/18 12:20 Most recent lab results Calcium 12.1 mg/dL (8.5-10.1) H* 06/19/18 12:20 Magnesium 2.0 mg/dL (1.5-2.5) 06/19/18 12:20 Assessment and Plan - Assessment (1) Acute renal failure Code(s): N17.9 - Acute kidney failure, unspecified Status: Acute (2) Hypercalcemia Code(s): E83.52 - Hypercalcemia Status: Acute (3) Dizziness Code(s): R42 - Dizziness and giddiness Status: Acute - Attending Attestation patient was seen and examined. She has iatrogenic hypoparathyroidism, as a result of which she is in permanent need for calcitriol, calcium supplements and vitamin D. Patient apparently developed nausea, vomiting, continued to take Bumex. As a result, she developed dehydration, developed hypercalcemia. Hypercalcemia can worsen dehydration as it can cause incomplete DI. At this time, temporarily suspend Calcitriol, Calcium supplements. IV hydration. Expect improvement in renal function. At the time of discharge, she should be on Calcitriol and Calcium supplements, otherwise she will develop severe hypocalcemia. <Gabriela Mazariegos - Last Filed: 06/19/18 17:19> (1) Acute renal failure Qualifiers: Acute renal failure type: unspecified Qualified Code(s): N17.9 - Acute kidney failure, unspecified <Delgado Carey - Last Filed: 06/19/18 17:54> (1) Acute renal failure Qualifiers: Acute renal failure type: unspecified Qualified Code(s): N17.9 - Acute kidney failure, unspecified
[2018-06-19] MEDS: Sodium Chloride 0.45 % Inj 1,000 ML IV.CONT SCH (17:49)
[2018-06-19] MEDS: Carvedilol 6.25 MG Tablet PO SCH (21:28)
[2018-06-19] MEDS: Insulin NovoLOG Aspart Correctional Sugar Inj SQ SCH ×2 (21:29→21:51)
[2018-06-19] MEDS: Famotidine 20 MG Tablet PO SCH (21:50)
[2018-06-19 23:29] LABS: Creatinine,Urine Random 119 mg/dL (27-300)
[2018-06-20] MEDS: Sodium Chloride 0.45 % Inj 1,000 ML IV.CONT SCH ×2 (03:56→15:00)
[2018-06-20] MEDS: Levothyroxine 88 MCG Tablet PO SCH (08:42)
[2018-06-20] MEDS: Insulin NovoLOG Aspart Correctional Sugar Inj SQ SCH ×4 (10:13→21:31)
[2018-06-20] MEDS: Heparin - SQ 10,000 UNITS/ML Vial SQ SCH ×2 (10:15→21:31)
[2018-06-20] MEDS: Isosorbide Mononitrate 30 MG ER 24HR Tablet (Imdur) PO SCH (10:16)
[2018-06-20] MEDS: Carvedilol 6.25 MG Tablet PO SCH ×2 (10:17→21:30)
[2018-06-20] MEDS: Famotidine 20 MG Tablet PO SCH ×2 (10:17→21:30)
[2018-06-20 12:32] LABS: Albumin 2.8 g/dL (3.4-5.0); Calcium 9.9 mg/dL (8.5-10.1); Carbon Dioxide 27.9 meq/L (21.0-32.0); Phosphorus 2.7 mg/dL (2.5-4.9)
[2018-06-20 12:34] LABS: Potassium 4.6 meq/L (3.5-5.1)
--- NOTE | 2018-06-20 13:11 | P.PN ---
Subjective Interval history: Follow up for hypercalcemia, acute on CKD. Patient is currently doing well. No chest pain, SOB, fever, chills. Physical Exam Vital signs: Vital Signs 06/19/18 14:32 06/19/18 20:00 06/19/18 23:52 Temperature 98.3 F 98.5 F Pulse Rate 63 60 62 Respiratory Rate 20 17 17 Blood Pressure 165/70 H 138/62 126/57 L Pulse Oximetry 98 96 95 06/20/18 08:00 06/20/18 12:00 Temperature 97.6 F 97.5 F L Pulse Rate 62 60 Respiratory Rate 16 16 Blood Pressure 142/64 H 147/62 H Pulse Oximetry 97 96 Intake & Output 06/19/18 06/20/18 06/20/18 18:59 06:59 18:59 Intake Total 2079 Balance 2079 / 2079 Weight 70.307 kg Intake: IV 1600 / 1600 1/2 Normal Saline Inj 1,000 ML 1000 / 1000 @ 100 mls/hr IV.CONT .Q10H [facility] Rx#:[id number] NS Inj 500 ML @ Wide Open IV. 500 / 500 SIG BOLUS ONE Rx#:[id number] Rocephin Inj 1,000 MG In NS Inj 100 / 100 100 ML @ 200 mls/hr IV.SIG ONCE ONE Rx#:[id number] Oral 480 / 480 Other: # Voids 1 Date of Last Bowel Movement 06/19/18 Narrative: GENERAL: Alert, Oriented x 3, NAD. SKIN: Warm and dry. HEAD: Normocephalic. EYES: No scleral icterus. No injection or drainage. NECK: Supple, trachea midline. No JVD or lymphadenopathy. CARDIOVASCULAR: Regular rate and rhythm without murmurs, gallops, or rubs. RESPIRATORY: Breath sounds equal bilaterally. No accessory muscle use. GASTROINTESTINAL: Abdomen soft, non-tender, nondistended. MUSCULOSKELETAL: No cyanosis, or edema. BACK: Nontender without obvious deformity. No CVA tenderness. Results - Labs CBC & Chem 7: 06/19/18 12:20 06/20/18 11:44 Laboratory Results - last 24 hr 06/19/18 06/19/18 06/19/18 12:20 12:20 12:20 WBC 10.4 RBC 4.54 Hgb 13.1 Hct 39.1 MCV 86.2 MCH 29.0 MCHC 33.6 RDW 15.6 Plt Count 208 MPV 10.7 Neut % (Auto) 66.0 Lymph % (Auto) 23.0 [place] % (Auto) 8.4 H Eos % (Auto) 2.0 Baso % (Auto) 0.6 Neut # (Auto) 6.9 Lymph # (Auto) 2.4 [place]aden # (Auto) 0.9 Eos # (Auto) 0.2 Baso # (Auto) 0.1 WBC Differential . Differential Comment Auto diff final PT 9.7 L INR 1.0 APTT 29.5 Sodium 136 Potassium 3.6 Chloride 98 Carbon Dioxide 30.3 Anion Gap 8 BUN 33 H Creatinine 3.38 H Estimated GFR 13 L POC Glucose Random Glucose 93 Calcium 12.1 H* Prot Corrected Calcium 10.8 H Phosphorus Magnesium 2.0 Total Bilirubin 0.6 AST 21 ALT 18 Alkaline Phosphatase 91 Troponin I Less than 0.02 L B-Natriuretic Peptide Total Protein 9.1 H Albumin 4.1 Lipase 112 Urine Color Urine Clarity Urine pH Ur Specific [place] Urine Protein Urine Glucose (UA) Urine Ketones Urine Occult Blood Urine Nitrate Urine Bilirubin Urine Urobilinogen Ur Leukocyte Esterase Urine RBC Urine WBC Ur Squamous Epith Cells Urine Bacteria Urine Mucus Micro UA Comment Urine Culture Comments Ur Random Creatinine Ur Random Sodium 06/19/18 06/19/18 06/19/18 12:20 12:40 12:40 WBC RBC Hgb Hct MCV MCH MCHC RDW Plt Count MPV Neut % (Auto) Lymph % (Auto) [place] % (Auto) Eos % (Auto) Baso % (Auto) Neut # (Auto) Lymph # (Auto) [place] # (Auto) Eos # (Auto) Baso # (Auto) WBC Differential Differential Comment PT INR APTT Sodium Potassium Chloride Carbon Dioxide Anion Gap BUN Creatinine Estimated GFR POC Glucose Random Glucose Calcium Prot Corrected Calcium Phosphorus Magnesium Total Bilirubin AST ALT Alkaline Phosphatase Troponin I B-Natriuretic Peptide 21 Total Protein Albumin Lipase Urine Color Yellow Urine Clarity Hazy H Urine pH 7.0 Ur Specific [place] 1.010 Urine Protein Negative Urine Glucose (UA) Negative Urine Ketones Negative Urine Occult Blood Negative Urine Nitrate Negative Urine Bilirubin Negative Urine Urobilinogen Less than 2 Ur Leukocyte Esterase Large H Urine RBC 2 Urine WBC 82 H Ur Squamous Epith Cells 2 Urine Bacteria Rare H Urine Mucus Few H Micro UA Comment Culture indicated Urine Culture Comments Culture indicated Ur Random Creatinine 119 Ur Random Sodium 14 06/19/18 06/20/18 06/20/18 20:42 08:00 11:44 WBC RBC Hgb Hct MCV MCH MCHC RDW Plt Count MPV Neut % (Auto) Lymph % (Auto) [place] % (Auto) Eos % (Auto) Baso % (Auto) Neut # (Auto) Lymph # (Auto) [place] # (Auto) Eos # (Auto) Baso # (Auto) WBC Differential Differential Comment PT INR APTT Sodium 140 Potassium 4.6 D Chloride 107 D Carbon Dioxide 27.9 Anion Gap 5 BUN 29 H Creatinine 2.66 H Estimated GFR 18 L POC Glucose 173 H 157 H Random Glucose 125 H Calcium 9.9 D Prot Corrected Calcium Phosphorus 2.7 Magnesium Total Bilirubin AST ALT Alkaline Phosphatase Troponin I B-Natriuretic Peptide Total Protein Albumin 2.8 L D Lipase Urine Color Urine Clarity Urine pH Ur Specific [place] Urine Protein Urine Glucose (UA) Urine Ketones Urine Occult Blood Urine Nitrate Urine Bilirubin Urine Urobilinogen Ur Leukocyte Esterase Urine RBC Urine WBC Ur Squamous Epith Cells Urine Bacteria Urine Mucus Micro UA Comment Urine Culture Comments Ur Random Creatinine Ur Random Sodium 06/20/18 12:58 WBC RBC Hgb Hct MCV MCH MCHC RDW Plt Count MPV Neut % (Auto) Lymph % (Auto) [place] % (Auto) Eos % (Auto) Baso % (Auto) Neut # (Auto) Lymph # (Auto) [place] # (Auto) Eos # (Auto) Baso # (Auto) WBC Differential Differential Comment PT INR APTT Sodium Potassium Chloride Carbon Dioxide Anion Gap BUN Creatinine Estimated GFR POC Glucose 123 H Random Glucose Calcium Prot Corrected Calcium Phosphorus Magnesium Total Bilirubin AST ALT Alkaline Phosphatase Troponin I B-Natriuretic Peptide Total Protein Albumin Lipase Urine Color Urine Clarity Urine pH Ur Specific [place] Urine Protein Urine Glucose (UA) Urine Ketones Urine Occult Blood Urine Nitrate Urine Bilirubin Urine Urobilinogen Ur Leukocyte Esterase Urine RBC Urine WBC Ur Squamous Epith Cells Urine Bacteria Urine Mucus Micro UA Comment Urine Culture Comments Ur Random Creatinine Ur Random Sodium Microbiology 06/19/18 12:40 Clean Catch Urine Urine Culture - Preliminary Immature growth - reincubate - Imaging Impressions Chest X-Ray 06/19/18 12:01 CONCLUSION: 1. No focal infiltrate or pulmonary vascular congestion. 2. Small hiatal hernia. Head CT 06/19/18 12:01 CONCLUSION: 1. Negative noncontrast head CT. Abdomen/Pelvis CT 06/19/18 14:21 CONCLUSION: 1. No acute abnormality to explain the patient's pain. 2. Moderate hiatal hernia. 3. Duodenal diverticulum.. Assessment and Plan - Assessment (1) CAD (coronary artery disease) Code(s): I25.10 - Atherosclerotic heart disease of [place] coronary artery without angina pectoris Status: Acute (2) Ischemic cardiomyopathy Code(s): I25.5 - Ischemic cardiomyopathy Status: Acute (3) Acute renal failure Code(s): N17.9 - Acute kidney failure, unspecified Status: Acute (4) Hypercalcemia Code(s): E83.52 - Hypercalcemia Status: Acute - Plan Ms. Lucas is a pleasant 68-year-old female with a history of diabetes mellitus, coronary artery disease, ischemic cardiomyopathy who presents to the emergency department due to 2 near syncopal episode. Patient denies any chest pain, shortness of breath, fever or chills. She has AICD which did not activate. No dysuria, hematuria. She denies any lower extremity swelling. Near syncope - Etiology undetermined. Will monitor her on Telemetry. - Follows up with Dr. Hogue Acute kidney injury CKD stage III - Baseline appears to be around 2.33. Follows up with Dr. Skinner - Creatinine on admission 3.38 with GFR 13, improved to 2.66. - Hypercalcemia improved. - Will hold Bumex and Lisinopril for now. - Will obtain BMP in the AM. If electrolytes are improved and patient continues to do well, possible D/C in the AM. Diabetes mellitus - Glucose was 93 on arrival. Will keep patient on sliding scale insulin. If needed, we will add long acting insulin - Patient takes Aspart, Tresiba and Glyburide at home. This combo is concerning for hypoglycemic episodes. - I would argue against using Glyburide. Upon discharge, we can continue Tresiba and Sliding scale insulin with Aspart. CAD Ischemic cardiomyopathy Hx of Carotid artery stenosis Hypothyroidism s/p total thyroidectomy - Continue Prasugrel, Imdur, Coreg, Levothyroxine. - Continue Lipitor. Hold Lisinopril for now. Full code. Heparin SQ. (3) Acute renal failure Qualifiers: Acute renal failure type: unspecified Qualified Code(s): N17.9 - Acute kidney failure, unspecified
[2018-06-21] MEDS: Sodium Chloride 0.45 % Inj 1,000 ML IV.CONT SCH ×3 (02:40→22:01)
[2018-06-21 08:04] LABS: Calcium 9.8 mg/dL (8.5-10.1); Carbon Dioxide 25.3 meq/L (21.0-32.0); Potassium 3.8 meq/L (3.5-5.1)
[2018-06-21] MEDS: Heparin - SQ 10,000 UNITS/ML Vial SQ SCH ×2 (09:12→22:02)
[2018-06-21] MEDS: Levothyroxine 88 MCG Tablet PO SCH (09:12)
[2018-06-21] MEDS: Carvedilol 6.25 MG Tablet PO SCH ×2 (09:13→22:04)
[2018-06-21] MEDS: Famotidine 20 MG Tablet PO SCH ×2 (09:13→22:07)
[2018-06-21] MEDS: Isosorbide Mononitrate 30 MG ER 24HR Tablet (Imdur) PO SCH (09:14)
[2018-06-21] MEDS: Insulin NovoLOG Aspart Correctional Sugar Inj SQ SCH ×4 (09:38→22:06)
--- NOTE | 2018-06-21 11:43 | P.PN ---
Subjective Interval history: Follow-up for acute renal failure, hypercalcemia. The patient complains of abdominal bloating/swelling, epigastric discomfort, and nausea. No episodes of vomiting today. She states she has been experiencing these symptoms for a few months now, and getting worse recently. She still able to tolerate oral intake , but states she is very uncomfortable after meals. She denies any fevers or chills. Denies any headache, lightheadedness, or dizziness. Denies any chest pain or shortness of breath. She has no other medical complaints at this time. Physical Exam Vital signs: Vital Signs 06/20/18 12:00 06/20/18 15:34 06/20/18 15:51 Temperature 97.5 F L 97.7 F Pulse Rate 60 60 60 Respiratory Rate 16 16 Blood Pressure 147/62 H 121/58 L Pulse Oximetry 96 97 06/20/18 20:00 06/21/18 00:10 06/21/18 03:53 Temperature 98.4 F 98.1 F Pulse Rate 60 60 60 Respiratory Rate 16 16 Blood Pressure 120/63 120/78 Pulse Oximetry 97 96 06/21/18 08:00 06/21/18 08:32 Temperature 97.6 F Pulse Rate 60 59 L Respiratory Rate 18 Blood Pressure 185/77 H Pulse Oximetry 97 Intake & Output 06/20/18 06/21/18 06/21/18 18:59 06:59 18:59 Intake Total 100 / 100 Balance 100 / 100 Intake: IV 100 / 100 1/2 Normal Saline Inj 1,000 ML 100 / 100 @ 100 mls/hr IV.CONT .Q10H [facility] Rx#:[id number] Other: # Voids 2 Date of Last Bowel Movement 06/19/18 Narrative: GENERAL: Well-nourished, well-developed elderly female patient in [facility]. SKIN: Warm and dry. No rash. HEENT: Normocephalic. Atraumatic. Pupils equal and round. Mucous membranes pink and moist. CARDIOVASCULAR: Regular rate and rhythm. No murmur appreciated. RESPIRATORY: No accessory muscle use. Clear to auscultation. Breath sounds equal bilaterally. GASTROINTESTINAL: Abdomen soft, nondistended, minimal epigastric tenderness to palpation. Normoactive bowel sounds x4. MUSCULOSKELETAL: No obvious deformities. Extremities without clubbing, cyanosis , or edema. NEUROLOGICAL: Awake and alert. No obvious cranial nerve deficits. Motor grossly within normal limits. Moving all extremities spontaneously. Normal speech. Results - Labs CBC & Chem 7: 06/19/18 12:20 06/21/18 06:50 Laboratory Results - last 24 hr 06/20/18 06/20/18 06/20/18 11:44 12:58 16:47 Sodium 140 Potassium 4.6 D Chloride 107 D Carbon Dioxide 27.9 Anion Gap 5 BUN 29 H Creatinine 2.66 H Estimated GFR 18 L POC Glucose 123 H 153 H Random Glucose 125 H Calcium 9.9 D Phosphorus 2.7 Albumin 2.8 L D 06/20/18 06/21/18 21:28 06:50 Sodium 143 Potassium 3.8 D Chloride 109 H Carbon Dioxide 25.3 Anion Gap 9 BUN 29 H Creatinine 2.39 H Estimated GFR 20 L POC Glucose 131 H Random Glucose 125 H Calcium 9.8 Phosphorus Albumin Microbiology 06/19/18 12:40 Clean Catch Urine Urine Culture - Final 50-100,000 cfu/mL mixed gram positive radha (probable contaminants) - Imaging Chest X-Ray 06/19/18 12:01 CONCLUSION: 1. No focal infiltrate or pulmonary vascular congestion. 2. Small hiatal hernia. Head CT 06/19/18 12:01 CONCLUSION: 1. Negative noncontrast head CT. Abdomen/Pelvis CT 06/19/18 14:21 CONCLUSION: 1. No acute abnormality to explain the patient's pain. 2. Moderate hiatal hernia. 3. Duodenal diverticulum.. Assessment and Plan - Assessment (1) CAD (coronary artery disease) Code(s): I25.10 - Atherosclerotic heart disease of [place] coronary artery without angina pectoris Status: Acute (2) Ischemic cardiomyopathy Code(s): I25.5 - Ischemic cardiomyopathy Status: Acute (3) Acute renal failure Code(s): N17.9 - Acute kidney failure, unspecified Status: Acute (4) Hypercalcemia Code(s): E83.52 - Hypercalcemia Status: Acute - Plan Ms. Lucas is a pleasant 68-year-old female with a history of diabetes mellitus, coronary artery disease, ischemic cardiomyopathy who presents to the emergency department due to 2 near syncopal episode. Patient denies any chest pain, shortness of breath, fever or chills. She has AICD which did not activate. No dysuria, hematuria. She denies any lower extremity swelling. Near syncope: suspect secondary to dehydration with acute renal failure, recent vomiting. -Treat acute renal failure with IVF and monitor kidney function as below -Check orthostatics -Monitor on Telemetry. -Recommend outpatient f/up with harness puller Dr. Hogue -no further near syncopal events, patient ambulating without difficulty Acute kidney injury on CKD stage III: suspect prerenal secondary to dehydration with recent vomiting - Baseline Cr around 1.5-1.8. Follows with Dr. Carey - Creatinine on admission 3.38 with GFR 13, improved to 2.39 today. - Hypercalcemia improved, Ca 9.8 - Holding Bumex and Lisinopril for now. - Nephrology consulted, appreciate recommendations Abdominal Pain/Nausea/Vomiting: patient concerned about these symptoms, worsening over the past few months -Abdominal CT showed no acute findings to explain the patient's pain; moderate hiatal hernia; duodenal diverticulum -Lipase and LFTs wnl -Urine culture with mixed radha, probably contaminants -Check abdominal ultrasound -Supportive treatment with IV fluid hydration and antiemetics as needed -Consider GI consult versus outpatient follow-up for further evaluation Diabetes mellitus - Glucose was 93 on arrival. Will keep patient on sliding scale insulin. If needed, we will add long acting insulin - Patient takes Aspart, Tresiba and Glyburide at home. This combo is concerning for hypoglycemic episodes. - I would argue against using Glyburide. Upon discharge, we can continue Tresiba and Sliding scale insulin with Aspart. CAD Ischemic cardiomyopathy Hx of Carotid artery stenosis Hypothyroidism s/p total thyroidectomy - Continue Prasugrel, Imdur, Coreg, Levothyroxine. - Continue Lipitor. Hold Lisinopril for now. Full code. Heparin SQ. Discharge Planning: Discharge pending further clinical improvement and evaluation of abdominal complaints. Possible discharge tomorrow if improved and if cleared by nephrology. (3) Acute renal failure Qualifiers: Acute renal failure type: unspecified Qualified Code(s): N17.9 - Acute kidney failure, unspecified
--- NOTE | 2018-06-21 11:53 | P.PNNP ---
Subjective Interval history: She is reporting epigastric discomfort and nausea post prandial. Renal function improving. <Gabriela Mazariegos - Last Filed: 06/21/18 11:45> Physical Exam Vital signs: Vital Signs 06/20/18 12:00 06/20/18 15:34 06/20/18 15:51 Temperature 97.5 F L 97.7 F Pulse Rate 60 60 60 Respiratory Rate 16 16 Blood Pressure 147/62 H 121/58 L Pulse Oximetry 96 97 06/20/18 20:00 06/21/18 00:10 06/21/18 03:53 Temperature 98.4 F 98.1 F Pulse Rate 60 60 60 Respiratory Rate 16 16 Blood Pressure 120/63 120/78 Pulse Oximetry 97 96 06/21/18 08:00 06/21/18 08:32 Temperature 97.6 F Pulse Rate 60 59 L Respiratory Rate 18 Blood Pressure 185/77 H Pulse Oximetry 97 Intake & Output 06/20/18 06/21/18 06/21/18 18:59 06:59 18:59 Intake Total 100 / 100 Balance 100 / 100 Intake: IV 100 / 100 1/2 Normal Saline Inj 1,000 ML 100 / 100 @ 100 mls/hr IV.CONT .Q10H [facility] Rx#:[id number] Other: # Voids 2 Date of Last Bowel Movement 06/19/18 - Constitutional no acute distress, average body habitus, chronically ill appearing, cooperative - Routine HEENT Exam Head: Present: normocephalic - Routine Neck Exam Present: supple, full ROM - Routine Respiratory Exam Present: CTA bilaterally. Absent: accessory muscle use - Routine Cardiovascular Exam Present: RRR, S1, S2 - Routine Abdominal Exam Present: soft, normoactive bowel sounds, distended. Absent: tenderness, guarding, firm - Routine Extremities Exam Present: full ROM, pulses intact. Absent: edema - Routine Skin Exam Present: intact, dry, warm - Routine Neurological Exam Present: alert, oriented X3, CN II-XII intact - Detailed Neurological Exam: Coma Scale Eye Opening: Spontaneous Verbal Response: Oriented Motor Response: Obey commands [place] Coma Scale Total: 15 - Routine Psychiatric Exam Present: normal affect, normal thought process <Gabriela Mazariegos - Last Filed: 06/21/18 11:45> Vital signs: Vital Signs 06/20/18 15:34 06/20/18 15:51 06/20/18 20:00 Temperature 97.7 F 98.4 F Pulse Rate 60 60 60 Respiratory Rate 16 16 Blood Pressure 121/58 L 120/63 Pulse Oximetry 97 97 06/21/18 00:10 06/21/18 03:53 06/21/18 08:00 Temperature 98.1 F 97.6 F Pulse Rate 60 60 60 Respiratory Rate 16 18 Blood Pressure 120/78 185/77 H Pulse Oximetry 96 97 06/21/18 08:32 06/21/18 12:00 06/21/18 12:08 Temperature 97.4 F L Pulse Rate 59 L 60 60 Respiratory Rate 20 Blood Pressure 159/98 H Pulse Oximetry 98 Intake & Output 06/20/18 06/21/18 06/21/18 18:59 06:59 18:59 Intake Total 100 / 100 1000 / 1000 Balance 100 / 100 1000 / 1000 Intake: IV 100 / 100 1000 / 1000 1/2 Normal Saline Inj 1,000 ML 100 / 100 1000 / 1000 @ 50 mls/hr IV.CONT .Q20H [facility] Rx#:[id number] Other: # Voids 2 Date of Last Bowel Movement 06/19/18 <Delgado Carey - Last Filed: 06/21/18 14:45> Assessment and Plan - Assessment (1) Acute renal failure Code(s): N17.9 - Acute kidney failure, unspecified Status: Acute Qualifiers: Acute renal failure type: unspecified Qualified Code(s): N17.9 - Acute kidney failure, unspecified Plan: She has a hx of CKD 3, baseline 1.5-1.8, GFR 32 FAIZAN thought to be due to prerenal azotemia due to nausea/vomiting. Her renal function is improving. PO fluids encouraged. Reduce IVF to 50 cc/hr. Monitor renal function and urine output Renal US was normal Avoid nephrotoxic agents. Continue to hold home Bumex. Repeat labs every AM. Avoid nephrotoxins. (2) Hypercalcemia Code(s): E83.52 - Hypercalcemia Status: Acute Plan: Hx of total parathyroidectomy, requires daily replacement Hypercalcemia due to combination of dehydration/renal failure and over supplementation She becomes severely hypocalcemic if medications are held. Her calcium level has normalized. Resume half dose of calcitriol and calcium supplements this evening and tomorrow. Continue 1/2 NS follow labs (3) Dizziness Code(s): R42 - Dizziness and giddiness Status: Acute Plan: Possibly due to dehydration, improving Monitor for symptom improvement - Plan As far as the GI discomfort is concerned, may be related to gallbladder. Consider obtaining US. She is on PPI/H2 blockers at home. Given Zofran, it helps. Instructed on using BRAT diet for now. <Gabriela Mazariegos - Last Filed: 06/21/18 11:45> - Assessment (1) Acute renal failure Code(s): N17.9 - Acute kidney failure, unspecified Status: Acute Qualifiers: Acute renal failure type: unspecified Qualified Code(s): N17.9 - Acute kidney failure, unspecified (2) Hypercalcemia Code(s): E83.52 - Hypercalcemia Status: Acute (3) Dizziness Code(s): R42 - Dizziness and giddiness Status: Acute - Attending Attestation patient was seen and examined. Agree with above assessment and plan. Patient can be discharged from renal standpoint. <Delgado Carey - Last Filed: 06/21/18 14:45>
--- NOTE | 2018-06-21 18:14 | US ---
EXAM DATE: 06/21/2018 6:10 PM EDT AGE/SEX: 68 years / Female INDICATIONS: Abdominal pain. CLINICAL DATA: This is the patient's initial encounter. Patient reports that signs and symptoms have been present for 1 day and indicates a pain score of 2/10. MEDICAL/SURGICAL HISTORY: Congestive heart failure. Diabetes mellitus type II. Gastroesophage al reflux disease. Hypertension. Iatrogenic hypocalcemia. Coronary artery disease. Cardiomyopathy. Thyroidectomy. Parathyroidectomy. COMPARISON: [facility] [place], CT ABDOMEN & PELVIS W/O CONTRAST, 06/19/2018. . MEASUREMENTS: Liver:__ 14.9 cm. Common Bile Duct:___ 7mm. Right Kidney:___10.3 x 4.2 x 5.0 cm. Left Kidney:___9.8 x 4.2 x 5.1 cm. Spleen:___9.4 cm. FINDINGS: Liver: Normal echotexture without focal lesion or ductal dilatation. Portal Vein: Hepatopedal flow seen in portal vein. Common Duct: No intraluminal mass or stone visualized. Gallbladder: Only slightly distended at the time of imaging. Accounting for this, no wall thickenin g. There is no pericholecystic fluid. Negative sonographic Velasquez's sign. Pancreas: The visualized portions are within normal limits Right Kidney: Increased echotexture. 1 cm mid zone cyst. No solid mass or hydronephrosis. Left Kidney: Increased echotexture. 17 mm and 5 mm mid zone cysts. No solid mass or hydronephrosis. Ascites: None Pleural Effusion: None Spleen: No focal lesion. Aorta: Non aneurysmal. IVC: Within normal limits Other: None. CONCLUSION: 1. No acute abnormality demonstrated. 2. Elevated echotexture of both kidneys typical of chronic parenchymal disease. Benign-appearing charlie ateral renal cysts are also noted. Electronically signed by: Matt Hanks MD 06/21/2018 6:13 PM EDT
[2018-06-21] MEDS: Calcium Carbonate 500 MG Tablet PO SCH (22:06)
[2018-06-22] MEDS: Sodium Chloride 0.45 % Inj 1,000 ML IV.CONT SCH (06:18)
[2018-06-22] MEDS ORDERED: Calcitriol 0.25 MCG Capsule PO SCH (09:00)
[2018-06-22] MEDS: Insulin NovoLOG Aspart Correctional Sugar Inj SQ SCH ×2 (09:01→12:26)
[2018-06-22] MEDS: Isosorbide Mononitrate 30 MG ER 24HR Tablet (Imdur) PO SCH (10:12)
[2018-06-22] MEDS: Carvedilol 6.25 MG Tablet PO SCH (10:14)
[2018-06-22] MEDS: Heparin - SQ 10,000 UNITS/ML Vial SQ SCH (10:14)
[2018-06-22] MEDS: Famotidine 20 MG Tablet PO SCH (10:14)
[2018-06-22] MEDS: Calcium Carbonate 500 MG Tablet PO SCH (10:14)
[2018-06-22] MEDS: Levothyroxine 88 MCG Tablet PO SCH (10:14)
--- NOTE | 2018-06-22 11:01 | P.PNIM ---
Subjective Interval history: Follow-up for nausea and acute renal failure Still with nausea especially with eating, no vomiting. Denies any diarrhea, fever or chills. Denies any weight loss. Also has bloatedness in the last 3 months and mild epigastric and right upper quadrant discomfort. No fever. No urinary symptoms. Physical Exam Vital signs: Vital Signs 06/21/18 12:00 06/21/18 12:08 06/21/18 15:45 Temperature 97.4 F L Pulse Rate 60 60 60 Respiratory Rate 20 Blood Pressure 159/98 H Pulse Oximetry 98 06/21/18 16:00 06/21/18 20:00 06/22/18 00:00 Temperature 98.9 F 98.8 F 97.6 F Pulse Rate 61 62 62 Respiratory Rate 18 21 20 Blood Pressure 184/74 H 140/67 114/67 Pulse Oximetry 99 96 96 06/22/18 02:30 06/22/18 04:00 06/22/18 08:00 Temperature 97.5 F L 97 F L Pulse Rate 61 60 60 Respiratory Rate 19 13 Blood Pressure 152/68 H 156/61 H Pulse Oximetry 97 97 Intake & Output 06/21/18 06/22/18 06/22/18 18:59 06:59 18:59 Intake Total 1000 / 1000 1959 / 1959 Balance 1000 / 1000 1959 Intake: IV 1000 / 1000 1/2 Normal Saline Inj 1,000 ML 1000 / 1000 @ 50 mls/hr IV.CONT .Q20H [facility] Rx#:[id number] Oral 960 / 960 Other 1000 / 1000 Other: Other Intake Source Saline Solution # Voids 4 Date of Last Bowel Movement 06/19/18 06/22/18 Narrative: GENERAL: Well-nourished, well-developed elderly female patient in [facility]. SKIN: Warm and dry. No rash. HEENT: Normocephalic. Atraumatic. Pupils equal and round. Mucous membranes pink and moist. CARDIOVASCULAR: Regular rate and rhythm. No murmur appreciated. RESPIRATORY: No accessory muscle use. Clear to auscultation. Breath sounds equal bilaterally. GASTROINTESTINAL: Abdomen soft, mildly distended, minimal epigastric tenderness to palpation. Normoactive bowel sounds x4. Negative Velasquez sign. MUSCULOSKELETAL: No obvious deformities. Extremities without clubbing, cyanosis , or edema. NEUROLOGICAL: Awake and alert. No obvious cranial nerve deficits. Motor grossly within normal limits. Moving all extremities spontaneously. Normal speech. Results - Labs CBC & Chem 7: 06/19/18 12:20 06/21/18 06:50 Laboratory Results - last 24 hr 06/21/18 06/21/18 06/21/18 13:46 18:05 21:23 POC Glucose 111 H 87 254 H 06/22/18 08:06 POC Glucose 117 H - Imaging Impressions Abdomen Ultrasound 06/21/18 00:00 CONCLUSION: 1. No acute abnormality demonstrated. 2. Elevated echotexture of both kidneys typical of chronic parenchymal disease. Benign-appearing bilateral renal cysts are also noted. Assessment and Plan - Assessment (1) CAD (coronary artery disease) Code(s): I25.10 - Atherosclerotic heart disease of [place] coronary artery without angina pectoris Status: Acute (2) Ischemic cardiomyopathy Code(s): I25.5 - Ischemic cardiomyopathy Status: Acute (3) Acute renal failure Code(s): N17.9 - Acute kidney failure, unspecified Status: Acute (4) Hypercalcemia Code(s): E83.52 - Hypercalcemia Status: Acute - Plan Ms. Lucas is a pleasant 68-year-old female with a history of diabetes mellitus, coronary artery disease, ischemic cardiomyopathy who presents to the emergency department due to 2 near syncopal episode. Patient denies any chest pain, shortness of breath, fever or chills. She has AICD which did not activate. No dysuria, hematuria. She denies any lower extremity swelling. Near syncope: suspect secondary to dehydration with acute renal failure, recent vomiting. -Recommend outpatient f/up with building contractor Dr. Hogue -no further near syncopal events, patient ambulating without difficulty Acute kidney injury on CKD stage III: suspect prerenal secondary to dehydration with recent vomiting, resolved. - Baseline Cr around 1.5-1.8. Follows with Dr. Carey -Nephrology following, continue to hold Bumex, ultrasound kidneys unremarkable with chronic parenchymal disease on ultrasound. Lisinopril on hold. Likely secondary to prerenal. Cleared by nephrology. Discussed with Dr. Carey Hypercalcemia-normalized, restart calcium supplements per Dr. Carey Abdominal Pain/Nausea/Vomiting: patient concerned about these symptoms, worsening over the past few months including bloatedness but no weight loss. -Abdominal CT showed no acute findings to explain the patient's pain; moderate hiatal hernia; duodenal diverticulum. Liver is normal, reproductive organs negative for masses, no ascites, pancreas are unremarkable, skin is unremarkable. Lipase and LFTs within normal limits. Ultrasound however distended but no gallbladder wall thickening. Patient is very concerned about that part, will do HIDA scan, if negative may discharge today. This may be secondary to gastritis versus ulcer however patient wants to be discharged and does not want to wait for an EGD. She will be placed on Protonix, follow-up with family care physician and GI as outpatient. No dysuria with positive urinalysis, urine culture showed mixed ardha. Doubt UTI. Diabetes mellitus - Patient takes Aspart, Tresiba and Glyburide at home. This combo is concerning for hypoglycemic episodes. - I would argue against using Glyburide. Upon discharge, we can continue Tresiba and Sliding scale insulin with Aspart. CAD Ischemic cardiomyopathy Hx of Carotid artery stenosis Hypothyroidism s/p total thyroidectomy - Continue Prasugrel, Imdur, Coreg, Levothyroxine. - Continue Lipitor. Hold Lisinopril for now. Full code. Heparin SQ. Cleared by nephrology, discharge today if HIDA scan is negative. (3) Acute renal failure Qualifiers: Acute renal failure type: unspecified Qualified Code(s): N17.9 - Acute kidney failure, unspecified (3) Acute renal failure Qualifiers: Acute renal failure type: unspecified Qualified Code(s): N17.9 - Acute kidney failure, unspecified
--- NOTE | 2018-06-22 11:51 | P.DS ---
Date of admission: 06/20/18 13:04 Primary care physician: Hiro Martinez Anticipated date of discharge: 06/22/18 Brief History from admission: Ms. Lucas is a pleasant 68-year-old female with a history of DM, CAD, cardiomyopathy, hypothyroidism who presents to the emergency department on 2017 due to 2 episodes of near syncope. Patient denies any chest pain, shortness of breath, fever or chills. She reports no leg swelling. She did not have any cough, abdominal pain. However she has noticed increase in her abdominal girth. Patient denies any dysuria, hematuria. No changes in bowel habits. Upon arrival temperature 98.1F pulse 54 blood pressure 133/59 oxygen saturation 97% on room air. CBC largely unremarkable. CMP shows BUN 33, creatinine 3.38 estimated GFR 13, calcium 12.1 corrected calcium 10.8. Magnesium 2.0. Patient follows up with Dr. Skinner and Dr. Hogue. Past medical history: Coronary artery disease, diabetes mellitus, COPD, congestive heart failure, cardiomyopathy, hypothyroidism Past surgical history: Endarterectomy, thyroidectomy, stent placement, AICD placement. Social history: Patient smokes 4 cigarettes a day. Drinks once a year on the . Family history: No family history of cancer, heart disease, Alzheimer's or Parkinson's. DS: Diagnosis - Discharge Diagnosis (1) CAD (coronary artery disease) Status: Acute (2) Ischemic cardiomyopathy Status: Acute (3) Acute renal failure Status: Acute (4) Hypercalcemia Status: Acute DS: Medications - Discharge Medications Prescriptions: ondansetron [Zofran ODT] 4 mg PO Q6-8H PRN #20 tab PRN Reason: n/v pantoprazole 40 mg PO BID #60 tab DS: Summary Hospital Course: Ms. Lucas is a pleasant 68-year-old female with a history of diabetes mellitus, coronary artery disease, ischemic cardiomyopathy who presents to the emergency department due to 2 near syncopal episode. Patient denies any chest pain, shortness of breath, fever or chills. She has AICD which did not activate. No dysuria, hematuria. She denies any lower extremity swelling. Syncope likely secondary to dehydration with acute renal failure. Patient is to follow-up with her multimedia instructional designer outpatient. No further syncopal events. Upon admission, the patient was placed on volume resuscitation for acute renal failure on top of chronic kidney disease stage III. Her multi slide machine tender was consulted. Ultrasound of the kidneys are unremarkable which showed chronic parenchymal disease. After a few days, kidney failure resolved and creatinine was back to normal. Patient was cleared by nephrology prior to discharge. Her hypercalcemia also resolve with volume resuscitation. Calcium supplements are restarted. For her nausea and vomiting, CT scan was done which showed no acute findings to explain the patient's pain; moderate hiatal hernia; duodenal diverticulum. Liver is normal, reproductive organs negative for masses, no ascites, pancreas are unremarkable, skin is unremarkable. Lipase and LFTs within normal limits. Ultrasound however showed distended gallbladder but no gallbladder wall thickening. HIDA scan was offered but the patient declined since patient wants to go home. Nausea and vomiting may be secondary to gastritis versus ulcer however patient wants to be discharged and does not want to wait for an EGD. She will be placed on Protonix, follow-up with family care physician and GI as outpatient. No dysuria with positive urinalysis, urine culture showed mixed radha. Doubt UTI. Her glyburide was stopped because of mild hypoglycemia. Patient will be discharged home, she needs to follow-up with her primary care physician and possible GI consultation as outpatient. - Time Spent with Patient Total time spent providing and/or coordinating discharge services: Greater than 30 minutes - Quality: VTE Deep Vein Thrombosis/Pulmonary Embolism Present on Admission: No Exam Vital signs: Vital Signs 06/21/18 12:00 06/21/18 12:08 06/21/18 15:45 Temperature 97.4 F L Pulse Rate 60 60 60 Respiratory Rate 20 Blood Pressure 159/98 H Pulse Oximetry 98 06/21/18 16:00 06/21/18 20:00 06/22/18 00:00 Temperature 98.9 F 98.8 F 97.6 F Pulse Rate 61 62 62 Respiratory Rate 18 21 20 Blood Pressure 184/74 H 140/67 114/67 Pulse Oximetry 99 96 96 06/22/18 02:30 06/22/18 04:00 06/22/18 08:00 Temperature 97.5 F L 97 F L Pulse Rate 61 60 60 Respiratory Rate 19 13 Blood Pressure 152/68 H 156/61 H Pulse Oximetry 97 97 06/22/18 09:00 Temperature Pulse Rate 72 Respiratory Rate Blood Pressure Pulse Oximetry Intake & Output 06/21/18 06/22/18 06/22/18 18:59 06:59 18:59 Intake Total 1000 / 1000 1959 Balance 1000 / 1000 1959 Intake: IV 1000 / 1000 1/2 Normal Saline Inj 1,000 ML 1000 / 1000 @ 50 mls/hr IV.CONT .Q20H [facility] Rx#:[id number] Oral 960 / 960 Other 1000 / 1000 Other: Other Intake Source Saline Solution # Voids 4 Date of Last Bowel Movement 06/19/18 06/22/18 Narrative: none Results Procedures completed during hospitalization: none Labs on day of discharge: Labs from last 24 hours 06/22/18 06/21/18 06/21/18 08:06 21:23 18:05 POC Glucose 117 H 254 H 87 06/21/18 13:46 POC Glucose 111 H - Impressions ITS Impressions Chest X-Ray 06/19/18 12:01 CONCLUSION: 1. No focal infiltrate or pulmonary vascular congestion. 2. Small hiatal hernia. Head CT 06/19/18 12:01 CONCLUSION: 1. Negative noncontrast head CT. Abdomen/Pelvis CT 06/19/18 14:21 CONCLUSION: 1. No acute abnormality to explain the patient's pain. 2. Moderate hiatal hernia. 3. Duodenal diverticulum.. Abdomen Ultrasound 06/21/18 00:00 CONCLUSION: 1. No acute abnormality demonstrated. 2. Elevated echotexture of both kidneys typical of chronic parenchymal disease. Benign-appearing bilateral renal cysts are also noted. Discharge Plan - Discharge Disposition Patient Disposition: 01 Discharge Home - Discharge Condition Condition: Good - Discharge Order Discharge Orders: Discharge Order (Routine); Ordered 06/22/18 Ordered By: Lolis Rodriguez - Discharge Details Anticipated Discharge Date: 06/22/18 Discharge Comment: f/u with PCP and GI as outpatient - Physicians Team Primary Care Provider: Hiro Martinez Attending Provider: Lolis Rodriguez Other Providers: Delgado Carey MD ; [facility]
== END 2018-06-22 12:51 | disposition home or self-care (01) ==
LOC: NEPD 08:18 → NEDA 08:18 → NEPGCP 18:33 → N05 06-21 18:25
PROVIDERS: ADMIT Hospitalist; ATTEND Hospitalist